=== PATIENT | female | born 1950 | race Caucasian/White ===

== ENCOUNTER → 2019-04-26 12:22 | Outpatient (CLI) | payer OTHER, SELFPAY ==
[2019-04-26 14:37] LABS: Free T4, Direct Thyroxine 0.67 ng/dL (0.78-2.19)
[2019-04-26 14:51] LABS: Thyroid Stimulating Hormone 1.38 uIU/mL (0.47-4.68)
[2019-04-30 15:44] LABS: Triiodothyronine T3 Total 109 ng/dL (76-181)
== END ==
PROVIDERS: Visit Provider Internal Medicine
DX: E03.9 Hypothyroidism, unspecified (principal)
CPT/HCPCS: 36415; 84439; 84443; 84480

== ENCOUNTER → 2020-07-31 15:00 | Outpatient (CLI) | payer OTHER, SELFPAY ==
[2020-08-02 20:06] LABS: COVID19 Sendout Not Detected (Not Detect)
== END ==
PROVIDERS: Visit Provider Physician Assistant
DX: Z11.59 Encounter for screening for other viral diseases (principal)
CPT/HCPCS: 87635

== ENCOUNTER → 2020-11-19 09:16 | Outpatient (CLI) | payer OTHER, SELFPAY ==
[2020-11-19 10:16] LABS: Add Manual Diff / Slide Review NO; Basophils Absolute Auto 0 /uL (0-100); Eosinophils Absolute Auto 0 /uL (0-450); Eosinophils Percent Auto 0.6 % (2-4); Hematocrit 40.2 % (36-46); Hemoglobin 13.4 g/dL (12.0-16.0); Lymphocytes Absolute Auto 1300 /uL (1100-4500); Lymphocytes Percent Auto 37.6 % (25-40); Mean Corpuscular HGB Conc 33.2 % (30-36); Mean Corpuscular Hemoglobin 31.4 PG (26-34); Mean Corpuscular Volume 94.4 fL (80-100); Monocytes Absolute Auto 200 /uL (0-900); Monocytes Percent Auto 5.9 % (3-14); Neutrophils Absolute Auto 1900 /uL (1500-7000); Neutrophils Percent Auto 54.9 % (50-75); Platelet Count 209 X10^3/uL (150-400); Red Blood Cell Count 4.26 X10^6/uL (4.0-5.2); Red Cell Distribution Width 13.9 % (11.6-14.8); White Blood Cell Count 3.5 X10^3/uL (4.5-11.0)
[2020-11-19 10:53] LABS: Alanine Aminotransferase 16 IU/L (<35); Albumin 3.7 g/dL (3.5-5.0); Albumin Globulin Ratio 1.6 (1.0-2.8); Alkaline Phosphatase 64 U/L (38-126); Aspartate Aminotransferase 23 IU/L (14-36); BUN Creatinine Ratio 21.1 (6-22); Bilirubin Total 0.3 mg/dL (0.2-1.3); Blood Urea Nitrogen 16 mg/dL (7-17); Calcium 9.5 mg/dL (8.4-10.2); Carbon Dioxide 34 mmol/L (22-32); Chloride 104 mmol/L (98-107); Cholesterol 188 mg/dL (140-199); Estimated Glomerular Filt Rate > 60.0 mL/min (>60); Globulin 2.3 g/dL (1.7-4.1); Glucose 95 mg/dL (80-110); HDL Cholesterol 61 mg/dL (40-60); HEMOLYSIS < 15 (0-50); LDL Cholesterol Calculated 112 mg/dL (<100); Potassium 4.6 mmol/L (3.4-5.1); Sodium 140 mmol/L (137-145); Triglycerides 74 mg/dL (35-150)
[2020-11-19 11:05] LABS: Free T3, Triiodothyronine Free 3.58 pg/mL (2.77-5.27); Free T4, Direct Thyroxine 0.77 ng/dL (0.78-2.19)
[2020-11-19 11:19] LABS: Thyroid Stimulating Hormone 1.85 uIU/mL (0.47-4.68)
[2020-11-19 11:36] LABS: Vitamin B12 Reflex MMA if <400 603 pg/mL (239-931)
== END ==
PROVIDERS: PCP Registered Nurse Diabetes Educator; Referring Provider Internal Medicine Cardiovascular Disease; Visit Provider Internal Medicine Cardiovascular Disease
DX: R07.89 Other chest pain (principal); E03.9 Hypothyroidism, unspecified; R41.3 Other amnesia
CPT/HCPCS: 36415; 80053; 80061; 82607; 84439; 84443; 84481; 85025

== ENCOUNTER → 2020-12-06 16:32 | Outpatient (CLI) | payer OTHER, SELFPAY ==
[2020-12-06 17:05] LABS: COVID19 -Nasal RAPID Negative (Negative)
== END ==
PROVIDERS: PCP Registered Nurse Diabetes Educator; Visit Provider Physician Assistant
DX: Z20.822 Contact with and (suspected) exposure to COVID-19 (principal)
CPT/HCPCS: 87635

== ENCOUNTER → 2021-02-16 10:03 | Outpatient (CLI) | payer OTHER, SELFPAY ==
[2021-02-16 11:09] LABS: Hematocrit 42.3 % (36-46); Hemoglobin 14.2 g/dL (12.0-16.0); Mean Corpuscular HGB Conc 33.6 % (30-36); Mean Corpuscular Hemoglobin 31.6 PG (26-34); Platelet Count 232 X10^3/uL (150-400); Red Cell Distribution Width 14.2 % (11.6-14.8)
[2021-02-16 11:20] LABS: Alanine Aminotransferase 18 IU/L (<35); Albumin 3.7 g/dL (3.5-5.0); Albumin Globulin Ratio 1.4 (1.0-2.8); Alkaline Phosphatase 64 U/L (38-126); Aspartate Aminotransferase 28 IU/L (14-36); BUN Creatinine Ratio 25.9 (6-22); Bilirubin Total 0.2 mg/dL (0.2-1.3); Blood Urea Nitrogen 21 mg/dL (7-17); Calcium 9.2 mg/dL (8.4-10.2); Carbon Dioxide 34 mmol/L (22-32); Chloride 105 mmol/L (98-107); Estimated Glomerular Filt Rate > 60.0 mL/min (>60); Globulin 2.6 g/dL (1.7-4.1); Glucose 89 mg/dL (80-110); HEMOLYSIS < 15 (0-50); Potassium 4.1 mmol/L (3.4-5.1); Sodium 143 mmol/L (137-145); Total Protein 6.3 g/dL (6.3-8.2)
[2021-02-16 11:51] LABS: TSH w/ Reflex to FT4 5.88 uIU/mL (0.47-4.68)
[2021-02-16 12:41] LABS: Free T4, Direct Thyroxine 0.65 ng/dL (0.78-2.19)
[2021-02-16 18:54] LABS: Cholesterol 215 mg/dL (140-199); HDL Cholesterol 60 mg/dL (40-60); LDL Cholesterol Calculated 141 mg/dL (<100); Triglycerides 69 mg/dL (35-150)
== END ==
PROVIDERS: PCP Registered Nurse Diabetes Educator; Referring Provider Registered Nurse Diabetes Educator; Visit Provider Registered Nurse Diabetes Educator
DX: D72.819 Decreased white blood cell count, unspecified (principal); I10 Essential (primary) hypertension; E03.9 Hypothyroidism, unspecified; E77.8 Other disorders of glycoprotein metabolism; E78.00 Pure hypercholesterolemia, unspecified
CPT/HCPCS: 36415; 80053; 80061; 84439; 84443; 85027

== ENCOUNTER → 2021-03-30 12:30 | Outpatient (CLI) | payer OTHER, SELFPAY ==
[2021-03-30 14:48] LABS: TSH w/ Reflex to FT4 0.92 uIU/mL (0.47-4.68)
== END ==
PROVIDERS: PCP Registered Nurse Diabetes Educator; Referring Provider Registered Nurse Diabetes Educator; Visit Provider Registered Nurse Diabetes Educator
DX: E03.9 Hypothyroidism, unspecified (principal)
CPT/HCPCS: 36415; 84443

== ENCOUNTER → 2021-07-25 14:57 | Outpatient (CLI) | payer OTHER, SELFPAY ==
[2021-07-25 16:59] LABS: Alanine Aminotransferase 21 IU/L (<35); Albumin 4.1 g/dL (3.5-5.0); Albumin Globulin Ratio 1.6 (1.0-2.8); Alkaline Phosphatase 64 U/L (38-126); Aspartate Aminotransferase 27 IU/L (14-36); Bilirubin Total 0.4 mg/dL (0.2-1.3); Bilirubin Unconjugated 0.3 mg/dL (0.0-1.1); Cholesterol 160 mg/dL (140-199); Globulin 2.5 g/dL (1.7-4.1); HDL Cholesterol 80 mg/dL (40-60); HEMOLYSIS < 15 (0-50); LDL Cholesterol Calculated 56 mg/dL (<100); Total Protein 6.6 g/dL (6.3-8.2); Triglycerides 118 mg/dL (35-150)
[2021-07-25 17:20] LABS: Free T3, Triiodothyronine Free 6.16 pg/mL (2.77-5.27); Free T4, Direct Thyroxine 1.05 ng/dL (0.78-2.19)
[2021-07-25 17:34] LABS: Thyroid Stimulating Hormone 0.037 uIU/mL (0.47-4.68)
== END ==
PROVIDERS: PCP Registered Nurse Diabetes Educator; Referring Provider Internal Medicine Cardiovascular Disease; Visit Provider Internal Medicine Cardiovascular Disease
DX: E78.5 Hyperlipidemia, unspecified (principal); E03.9 Hypothyroidism, unspecified
CPT/HCPCS: 80061; 80076; 84439; 84443; 84481

== ENCOUNTER 2021-07-27 09:41 | Emergency (ER) | payer OTHER, SELFPAY ==
[2021-07-27 09:45] VITALS: BP 156/74; PULSE 103; RESP 14; TEMP 36.6; O2SAT 100; BMI 26.9
--- NOTE | 2021-07-27 10:27 | ED.GENADULT ---
HPI - General Adult General Chief complaint: Abdominal Pain Stated complaint: Reaction to medication Time Seen by Provider: 07/27/21 10:06 Source: patient Mode of arrival: Ambulatory Limitations: no limitations History of Present Illness HPI narrative: Patient is a 71-year-old female who is here for evaluation which she thinks is an allergic reaction to her thyroid medication. She states she has had reactions in the past. She is currently on [place] Thyroid. Has been on Synthroid in the past. Get switched back and forth between these medications because of ?reactions. She is here because she feels like her lower lip swelling. She also feels like she is being ?torn up inside ?the symptoms been going on for the past month. She contacted her primary doctor and saw her primary doctor at the beginning of this week. She had labs performed. Was told that she was on too much of her medication so she was decreased yesterday. She denies any fevers. Is crying. Is having problems sleeping. She went to the walk-in clinic who sent her to the emergency department for further evaluation. Related Data Home Medications Medication Instructions Recorded Confirmed ferrous sulfate 325 mg (65 mg 325 mg PO DAILY tab 11/12/18 07/07/21 iron) tablet (FerrouSul) nasal spray MISCELLANEOUS 11/12/18 07/07/21 Previous Rx's Medication Instructions Recorded montelukast 10 mg tablet 10 mg PO QPM #90 tab 11/28/20 (Singulair) omeprazole 20 mg capsule,delayed 20 mg PO DAILY #90 cap 11/28/20 release gabapentin 300 mg capsule 2,100 mg PO BEDTIME #210 cap 12/16/20 tizanidine 4 mg capsule 4 mg PO TID #90 cap 12/16/20 bumetanide 2 mg tablet 2 mg PO DAILY #90 tab 04/11/21 thyroid (pork) 90 mg tablet 90 mg PO DAILY #90 tab 04/11/21 ([place] Thyroid) adjuvant AS01B (PF)vial 1 of 2 0.5 ml IM ONCE #0.5 ml 05/02/21 (Shingrix Adjuvant Component-PF) pneumococcal 23-sriram ps vaccine 25 0.5 ml IM ONCE #0.5 ml 05/02/21 mcg/0.5 mL injection solution (Pneumovax-23) fexofenadine 60 mg-pseudoephedrine 1 tab PO Q12H PRN #60 tab 07/04/21 ER 120 mg tablet,ext.release,12 hr (Arlen-D 12 Hour) trazodone 50 mg tablet 150 mg PO BEDTIME #90 tab 07/27/21 Allergies Allergy/AdvReac Type Severity Reaction Status Date / Time erythromycin base Allergy Unknown Verified 07/27/21 10:04 Penicillins Allergy Unknown unknown Verified 07/27/21 10:04 tetracycline Allergy Unknown Verified 07/27/21 10:04 marrodotin Allergy Unknown Uncoded 07/25/21 17:08 thyroid meds Allergy Unknown Uncoded 07/25/21 17:08 Review of Systems Constitutional Constitutional: Denies headache(s) Comments: Problem sleeping Eyes Eyes: Reports system reviewed and no additional complaints, except as documented ENT Ears, Nose, Mouth, and Throat: Denies headache(s) Comments: Lower lip swelling Cardiovascular Cardiovascular: Reports system reviewed and no additional complaints, except as documented Respiratory Respiratory: Reports system reviewed and no additional complaints, except as documented Gastrointestinal Gastrointestinal: Reports as per HPI and Reports system reviewed and no additional complaints, except as documented Musculoskeletal Musculoskeletal: Reports system reviewed and no additional complaints, except as documented Integumentary/Breasts Skin/Breast: Reports system reviewed and no additional complaints, except as documented Neurologic Neurologic: Denies headache(s) Endocrine Endocrine: Reports system reviewed and no additional complaints, except as documented Hematologic/Lymphatic On Anticoagulants: No Allergic/Immunologic Allergic/Immunologic: Reports system reviewed and no additional complaints, except as documented Patient History Medical History Carpal tunnel syndrome (~1994) Cataracts, bilateral (~2019) Chicken pox Chronic back pain (~1970) Chronic low back pain Depression (~1996) Elevated LDL cholesterol level Hypothyroidism (~2007) Insomnia Mumps (~1964) Sinusitis Surgical History Anesthesia Cat bite of finger (~2013) History of gastrointestinal surgery (~1975) History of nasal surgery (~2014) History of tonsillectomy (~1975) Family History Father Cancer Diabetes mellitus History of heart disease History of heart bypass surgery Mother History of heart disease Hyperlipidemia Hypertension Sister Diabetes mellitus Social History Smoking Status: Never smoker Smoking Status: Never smoker alcohol intake frequency: holidays/special occasions only Substance Use Type: does not use Exam Initial Vital Signs Initial Vital Signs: Vital Signs Temperature 97.8 F 07/27/21 09:45 Pulse Rate 103 H 07/27/21 09:45 Respiratory Rate 14 07/27/21 09:45 Blood Pressure 156/74 H 07/27/21 09:45 Pulse Oximetry 100 07/27/21 09:45 Const General: cooperative, comfortable, anxious and No ill appearing HENMT Head: normal to inspection and normocephalic Nose: external nose normal Face and sinus: normal facial exam Mouth: oral mucosae normal, lip normal, tongue normal and moist mucous membranes Eyes Conjunctivae: conjunctivae normal Neck Neck: no meningeal signs Chest Chest: normal inspection of the chest Resp Effort & Inspection: normal respiratory effort Cardio Rate: regular rate Skin General: no rashes or lesions noted Neuro General: patient alert, patient awake, patient oriented x3 and moves all extremities Extrem General: capillary refill normal Psych Appearance: grossly normal and well kempt Course Vital Signs Vital signs: Vital Signs - 8 hr 07/27/21 09:45 Temperature 97.8 F Pulse Rate 103 H Respiratory Rate 14 Blood Pressure 156/74 H Pulse Oximetry 100 Medical Decision Making [facility] Narrative Medical decision making narrative: Patient is nontoxic appearing. I appreciate no swelling of her lower lip nor tongue left nor other swelling in her oral cavity. I have a higher suspicion that her symptoms today are related to being hyperthyroid. She does had it decrease in her thyroid medication yesterday after having some labs drawn at the beginning of the week. Patient not in thyroid storm. I did discuss this with her. She can take Benadryl if needed. No indication for steroids. No indication for epinephrine. She was given return precautions. She expressed understanding and agreement. Discharge Plan Departure Patient Disposition: Home Clinical Impression: Hyperthyroidism Instructions: Hyperthyroidism Activity Restrictions/Additional Instructions: It may take a couple days being on the lower dose of your thyroid medicine before you start to have improvement of your symptoms. I would not recommend stopping this medicine unless you talk with your primary doctor and as recommended by her. You can take Benadryl as needed. You can purchase this [id number]. They are 25 mg tablets. You can take 1-2 tablet every 4-6 hours as needed. Return to the emergency department for any new or worsening symptoms Prescriptions: No Action ferrous sulfate [FerrouSul] 325 mg (65 mg iron) tablet 325 mg PO DAILY RF: 0 nasal spray miscellaneous RF: 0 gabapentin 300 mg capsule 2,100 mg PO BEDTIME Qty: 210 RF: 5 tizanidine 4 mg capsule 4 mg PO TID Qty: 90 RF: 5 thyroid (pork) [[place] Thyroid] 90 mg tablet 90 mg PO DAILY Qty: 90 RF: 3 bumetanide 2 mg tablet 2 mg PO DAILY Qty: 90 RF: 2 fexofenadine-pseudoephedrine [Arlen-D 12 Hour] 60-120 mg tablet extended release 12 hr 1 tab PO Q12H PRN (Reason: allergy symptoms) Qty: 60 RF: 0 trazodone 50 mg tablet 150 mg PO BEDTIME Qty: 90 RF: 5 montelukast [Singulair] 10 mg tablet 10 mg PO QPM Qty: 90 RF: 3 omeprazole 20 mg capsule,delayed release(DR/EC) 20 mg PO DAILY Qty: 90 RF: 3 Shingrix Adjuvant Component-PF Suspension 0.5 ml IM ONCE Qty: 0.5 RF: 1 Pneumovax-23 25 mcg/0.5 mL solution 0.5 ml IM ONCE Qty: 0.5 RF: 0 Referrals: Moody Maldonado ARNP [Primary Care Provider] -
[2021-07-27 10:55] VITALS: BP 156/74; RESP 18
== END 2021-07-27 10:56 | disposition home or self-care (01) ==
PROVIDERS: Emergency Provider Emergency Medicine; PCP Registered Nurse Diabetes Educator
DX: E05.90 Thyrotoxicosis, unspecified without thyrotoxic crisis or storm (principal)
CPT/HCPCS: 99281

== ENCOUNTER → 2021-11-30 09:08 | Outpatient (CLI) | payer OTHER, SELFPAY ==
[2021-11-30 10:41] LABS: Hematocrit 42.4 % (36-46); Mean Corpuscular Hemoglobin 31.4 PG (26-34); Mean Corpuscular Volume 94.9 fL (80-100); Platelet Count 262 X10^3/uL (150-400); Red Blood Cell Count 4.47 X10^6/uL (4.0-5.2); Red Cell Distribution Width 13.5 % (11.6-14.8); White Blood Cell Count 5.1 X10^3/uL (4.5-11.0)
[2021-11-30 11:00] LABS: Alanine Aminotransferase 18 IU/L (<35); Albumin 4.5 g/dL (3.5-5.0); Albumin Globulin Ratio 1.6 (1.0-2.8); Alkaline Phosphatase 63 U/L (38-126); Aspartate Aminotransferase 26 IU/L (14-36); BUN Creatinine Ratio 15.1 (6-22); Bilirubin Total 0.4 mg/dL (0.2-1.3); Blood Urea Nitrogen 14 mg/dL (7-17); Calcium 9.6 mg/dL (8.4-10.2); Carbon Dioxide 35 mmol/L (22-32); Chloride 102 mmol/L (98-107); Cholesterol 279 mg/dL (140-199); Estimated Glomerular Filt Rate 59.8 mL/min (>60); Globulin 2.9 g/dL (1.7-4.1); Glucose 103 mg/dL (80-110); HDL Cholesterol 87 mg/dL (40-60); HEMOLYSIS < 15 (0-50); LDL Cholesterol Calculated 167 mg/dL (<100); Potassium 3.7 mmol/L (3.4-5.1); Sodium 141 mmol/L (137-145); Total Protein 7.4 g/dL (6.3-8.2); Triglycerides 123 mg/dL (35-150)
[2021-11-30 11:12] LABS: Free T4, Direct Thyroxine 0.82 ng/dL (0.78-2.19)
[2021-11-30 11:14] LABS: Free T3, Triiodothyronine Free 4.32 pg/mL (2.77-5.27); Free T4, Direct Thyroxine 0.84 ng/dL (0.78-2.19)
== END ==
PROVIDERS: Student in an Organized Health Care Education/Training Program; PCP Registered Nurse Diabetes Educator; Referring Provider Registered Nurse Diabetes Educator; Visit Provider Registered Nurse Diabetes Educator
DX: E55.9 Vitamin D deficiency, unspecified (principal); E03.9 Hypothyroidism, unspecified; E78.00 Pure hypercholesterolemia, unspecified; Z51.81 Encounter for therapeutic drug level monitoring; F41.9 Anxiety disorder, unspecified
CPT/HCPCS: 36415; 80053; 80061; 82306; 84439; 84443; 84481; 85027

== ENCOUNTER → 2022-01-13 08:08 | Outpatient (CLI) | payer OTHER, SELFPAY ==
--- NOTE | 2022-01-13 08:23 | DI.RAD.S_ITS ---
PROCEDURE: XR ABDOMEN 1V INDICATIONS: eval diffuse abdominal pain, intermittent TECHNIQUE: One view of the abdomen acquired. COMPARISON: None. FINDINGS: Surgical changes and devices: None. Bowel: Bowel gas pattern is normal. Soft tissues: No suspicious abdominal calcifications. Visualized solid organ contours appear normal in size. Bones: No suspicious bony lesions. IMPRESSION: No acute disease process. Dictated by: Elisabeth Grover MD, PhD on 01/13/2022 at 12:00 Approved by: Elisabeth Grover MD, PhD on 01/13/2022 at 12:01
[2022-01-13 10:13] LABS: Free T4, Direct Thyroxine 0.92 ng/dL (0.78-2.19)
== END ==
PROVIDERS: Family Provider Registered Nurse Diabetes Educator; PCP Registered Nurse Diabetes Educator; Referring Provider Student in an Organized Health Care Education/Training Program; Visit Provider Student in an Organized Health Care Education/Training Program
DX: E03.9 Hypothyroidism, unspecified (principal); R10.9 Unspecified abdominal pain
CPT/HCPCS: 36415; 74018; 84439; 84443

== ENCOUNTER → 2022-02-07 11:46 | Outpatient (CLI) | payer OTHER, SELFPAY ==
--- NOTE | 2022-02-07 11:57 | DI.MG.S_ITS ---
BILATERAL DIGITAL SCREENING MAMMOGRAM 3D/2D WITH CAD: 02/07/2022 CLINICAL: Routine screening. No prior exams were available for comparison. The tissue of both breasts is predominantly fatty. Current study was also evaluated with a Computer Aided Detection (CAD) system. No significant masses, calcifications, or other findings are seen in either breast. IMPRESSION: NEGATIVE There is no mammographic evidence of malignancy. A 1 year screening mammogram is recommended. This exam was interpreted at Station ID: [id number]. NOTE: For mammograms, a report in lay terms will be sent to the patient. Approximately 15% of breast malignancies will not be visualized mammographically. In the management of a palpable breast mass, a negative mammogram must not discourage biopsy of a clinically suspicious lesion. Electronically Signed By: Rosina henley/kim:02/07/2022 13:01:28 letter sent: Normal Exam ACR BI-RADS Category 1: Negative [id number]
== END ==
PROVIDERS: Family Provider Registered Nurse Diabetes Educator; PCP Registered Nurse Diabetes Educator; Referring Provider Registered Nurse Diabetes Educator; Visit Provider Registered Nurse Diabetes Educator
DX: Z12.31 Encounter for screening mammogram for malignant neoplasm of breast; Z13.820 Encounter for screening for osteoporosis; Z78.0 Asymptomatic menopausal state; M85.89 Other specified disorders of bone density and structure, multiple sites
CPT/HCPCS: 77063; 77067; 77080

== ENCOUNTER → 2022-02-08 09:58 | Outpatient (CLI) | payer OTHER, SELFPAY ==
--- NOTE | 2022-02-08 09:59 | DI.US.S_ITS ---
PROCEDURE: US ABDOMEN COMPLETE INDICATIONS: eval diffuse abd pain, intermittent TECHNIQUE: Real-time scanning was performed of the abdominal and retroperitoneal organs, with image documentation. COMPARISON: None. FINDINGS: Liver: Liver is normal in size and homogeneous in echotexture. Gallbladder: The gallbladder is contracted without gallstones or pathologic gallbladder wall thickening. There is no pericholecystic fluid. Sonographic Sierra sign is negative. Biliary ducts: Intrahepatic bile ducts are non-dilated. Extrahepatic bile duct caliber measures five mm. Normal is 6-7 mm or less in diameter, or 10 mm or less post-cholecystectomy. Pancreas: The pancreas is not well visualized. Spleen: Spleen is normal in size and homogeneous in echotexture. Kidneys: Kidneys are normal in size and echotexture. Right kidney measures 11.2 cm long; left kidney measures 10.5 cm long. No nephrolithiasis. No solid masses. Mild prominence of the right renal pelvis may be secondary to extrarenal pelvis or possibly mild hydronephrosis. Aorta: Visualized aorta is normal in caliber at less than 3 cm. Iliacs: Proximal common iliac arteries are normal in caliber at less than 2.5 cm. IVC: Intrahepatic inferior vena cava is patent. Miscellaneous: No free abdominal fluid. IMPRESSION: 1. Possible mild right hydronephrosis versus normal-variant extrarenal pelvis. No nephrolithiasis sonographically. CT could be obtained for further evaluation if symptoms persist. 2. Otherwise, abdominal ultrasound is within normal limits. Dictated by: Koffi Mason M.D. on 02/08/2022 at 11:38 Approved by: Koffi Mason M.D. on 02/08/2022 at 11:43
== END ==
PROVIDERS: Family Provider Registered Nurse Diabetes Educator; PCP Registered Nurse Diabetes Educator; Referring Provider Registered Nurse Diabetes Educator; Visit Provider Registered Nurse Diabetes Educator
DX: R10.9 Unspecified abdominal pain (principal)
CPT/HCPCS: 76700

== ENCOUNTER 2022-02-21 09:53 | Day surgery (SDC) | payer OTHER, SELFPAY ==
[2022-02-21] VITALS (7 sets, daily range): BP systolic 99–134; BP diastolic 54–87; PULSE 64–84; RESP 15–20; TEMP 36.1–36.8; O2SAT 96–100; BMI 26.6
[2022-02-21] MEDS: LACTATED RINGERS 1,000 ML 200 ML IV (10:29)
[2022-02-21 10:41] LABS: COVID19 -Nasal RAPID Negative (Negative)
--- NOTE | 2022-02-21 10:45 | PM.HP.1 ---
History of Present Illness History of Present Illness Date Patient Seen: 02/21/22 Time Patient Seen: 10:45 Chief complaint: SCREENING COLONOSCOPY Narrative: The patient presents for colorectal screening. Previous colonoscopy 3 years ago but was inadequate secondary to poor prep. No personal or family history of colon cancer. She has abdominal pain superior to the umbilicus which is secondary to a hernia. No nausea, vomiting, loss of appetite, unexplained weight loss, change in bowel habits, diarrhea, constipation, melena, hematochezia, or bright red blood per rectum. Patient History Medical History Allergic rhinitis Carpal tunnel syndrome (~1994) Cataracts, bilateral (~2019) Chicken pox Chronic back pain (~1970) Chronic low back pain Depression (~1996) Dyslipidemia Elevated LDL cholesterol level Hypothyroidism (~2007) Insomnia Mumps (~1964) Sinusitis Surgical History Anesthesia Cat bite of finger (~2013) History of gastrointestinal surgery (~1975) History of nasal surgery (~2014) History of tonsillectomy (~1975) Family & Social History Family History Father Cancer Diabetes mellitus History of heart disease History of heart bypass surgery Mother History of heart disease Hyperlipidemia Hypertension Sister Diabetes mellitus Social History: household members family Tobacco & Substance use: Smoking Status Never smoker alcohol intake current alcohol intake frequency holiday/special occasion Substance Use Type does not use Meds Home Medications and Allergies Home Medications Medication Instructions Recorded Confirmed Type ferrous sulfate 325 mg (65 mg 325 mg PO DAILY tab 11/12/18 02/21/22 History iron) tablet (FerrouSul) nasal spray MISCELLANEOUS 11/12/18 02/13/22 History adjuvant AS01B (PF)vial 1 of 2 0.5 ml IM ONCE #0.5 ml 05/02/21 02/21/22 Rx (Shingrix Adjuvant Component-PF) pneumococcal 23-sriram ps vaccine 25 0.5 ml IM ONCE #0.5 ml 05/02/21 02/13/22 Rx mcg/0.5 mL injection solution (Pneumovax-23) thyroid (pork) 15 mg tablet 15 mg PO DAILY #60 tab 09/26/21 02/21/22 Rx ([place] Thyroid) Arlen-D 12 Hour 60 mg-120 mg 1 tab PO Q12H PRN #60 tab NS 12/15/21 02/21/22 Rx tablet,extended release (fexofenadine-pseudoephedrine) bumetanide 2 mg tablet 2 mg PO DAILY #90 tab 01/03/22 02/21/22 Rx fluticasone propionate 50 2 spray INTRANASAL DAILY #48 g 01/03/22 02/21/22 Rx mcg/actuation nasal spray,suspension (Flonase Allergy Relief) gabapentin 300 mg capsule 2,100 mg PO BEDTIME #630 cap 01/03/22 02/21/22 Rx montelukast 10 mg tablet 10 mg PO QPM #90 tab 01/03/22 02/21/22 Rx (Singulair) omeprazole 20 mg capsule,delayed 20 mg PO DAILY #90 cap 01/03/22 02/21/22 Rx release tizanidine 4 mg capsule 4 mg PO BID #180 cap 01/03/22 02/21/22 Rx trazodone 50 mg tablet 150 mg PO BEDTIME #270 tab 01/03/22 02/21/22 Rx ondansetron HCl 4 mg tablet 4 mg PO Q8H PRN #20 tab 01/26/22 02/21/22 Rx sumatriptan succinate 100 mg tablet 100 mg PO ONCE #10 tab 01/26/22 02/21/22 Rx Allergies Allergy/AdvReac Type Severity Reaction Status Date / Time nitrofurantoin Allergy Mild Rash Verified 02/21/22 10:13 [From Macrodantin] erythromycin base Allergy Unknown Verified 02/13/22 14:59 Penicillins Allergy Unknown unknown Verified 02/13/22 14:59 tetracycline Allergy Unknown Verified 02/13/22 14:59 thyroid meds Allergy Mild Rash Uncoded 02/21/22 10:14 Exam Vital Signs (past 8 hours): - 02/21/22 10:19 Temperature 98.2 F Pulse Rate 84 Respiratory Rate 20 Blood Pressure 116/67 Pulse Oximetry 96 Oxygen Delivery Method Room Air Narrative Exam Narrative: GENERAL: Obese woman in no apparent distress HEENT: No scleral icterus CV: Regular rate, no peripheral edema LUNGS: No increased work of breathing. Patient speaks in full sentences without oxygen support. ABDOMEN: Soft, non-tender, non-distended NEURO: Nonfocal, normal strength throughout, normal gait. SKIN: Warm and dry Objective Labs Labs: Laboratory Results - last 24 hr 02/21/22 10:14 SARS-CoV-2 (PCR) Negative Assessment & Plan Assessment & Plan narrative: The patient requires colorectal screening and colonoscopy is recommended. Technical details were discussed. Risks, benefits, alternatives explained. Risks including but not limited to myocardial infarction, aspiration, bleeding, pain, missed lesion, incomplete examination, need for further radiographic studies, colonic perforation, and need for major abdominal surgery were discussed. All questions were answered to their satisfaction, and they are in agreement with this plan. Time Spent With Patient Critical Care time: I spent a total of [] minutes of critical care time on this patient's care today; this time is exclusive of procedural time.
[2022-02-21] MEDS: MIDAZOLAM 5 MG/5 ML VIAL 7 MG IV (10:52)
[2022-02-21] MEDS: fentaNYL 250 MCG/5 ML INJ 150 MCG IV (10:52)
--- NOTE | 2022-02-21 11:20 | P.OP.COLON_ITS ---
Operative Date/Time/Diagnoses Date of procedure: 02/21/22 Time of procedure: 11:20 Pre-op diagnosis: Screening Post-op diagnosis: same Procedure & Clinicians Study performed: Colonoscopy Same procedure as scheduled: Yes Indications: Screening Surgeon: Maxim Armenta Procedure Notes Procedure in detail: Medications: Conscious sedation using 5mg IV midazolam and 150mcg IV of fentanyl The history and physical was performed/updated and the patient is ASA class is 2. The procedure was discussed in detail with the patient. Potential risks complications including infection, bleeding, missed diagnosis, perforation, need for surgery, and were explained. Their questions were answered and informed consent was obtained. Patient was brought to the procedure room and placed standard monitoring equipment. The patient's vital signs were monitored continuously throughout the entire procedure. Prior to starting time-out was performed. The patient was placed in the left lateral recumbent position. Procedural sedation was adminis tered. Examination began with a thorough inspection of the perianal area there was no evidence of fissures, fistulae, external hemorrhoids or cutaneous malignancy. The colonoscopy scope was then placed into the anal canal and was advanced to the cecum, which was identified by the ileocecal valve, the appendiceal orifice and the confluence of the taenia. The scope was then slowly withdrawn examining colon thoroughly in all directions, irrigating it of any residual stool. FINDINGS 1. No masses or polyps 2. Diverticulosis 3. Internal hemorrhoids The patient tolerated the procedure well. They will be discharged once criteria are met. The prep was of good/excellent quality. The withdrawl time was 7 minutes. The sedation time was 25 minutes. Specimen(s): none sent Complications: none Impression: Normal colonoscopy Post-procedure Recommendations: Colonoscopy in 10 years and High fiber diet Disposition: same day surgery
== END 2022-02-21 11:58 | disposition home or self-care (01) ==
PROVIDERS: Family Provider Registered Nurse Diabetes Educator; PCP Registered Nurse Diabetes Educator; Referring Provider Surgery; Visit Provider Surgery
PROC: 0DJD8ZZ Inspection of Lower Intestinal Tract, Via Natural or Artificial Opening Endoscopic (ICD-10-PCS; CPT 45378; principal; 2022-02-21 11:00)
DX: Z12.11 Encounter for screening for malignant neoplasm of colon (principal); Z20.822 Contact with and (suspected) exposure to COVID-19; K57.30 Diverticulosis of large intestine without perforation or abscess without bleeding; K64.8 Other hemorrhoids
CPT/HCPCS: G0121; 87635; 99152; 99153; C9803; J2250; J3010

== ENCOUNTER → 2022-02-23 14:12 | Outpatient (CLI) | payer OTHER, SELFPAY ==
--- NOTE | 2022-02-23 14:15 | DI.CT.S_ITS ---
PROCEDURE: CT ABDOMEN PELVIS WO/W CON INDICATIONS: Unspecified hydronephrosis TECHNIQUE: Optional 5 mm thick noncontrast images acquired from the diaphragm to the symphysis pubis. After the administration of intravenous contrast, 5 mm thick images acquired from the diaphragm to the symphysis pubis after a 10-minute delay. 2 mm thick coronal and sagittal reformats were then performed of the kidneys and ureters. For radiation dose reduction, the following was used: automated exposure control, adjustment of mA and/or kV according to patient size. COMPARISON: [facility], , US ABDOMEN COMPLETE, 02/08/2022, 10:13. FINDINGS: Image quality: Excellent. Lung bases: Lung bases are clear. Heart size is normal. Urinary system: Both kidneys are normal in size, without hydronephrosis or nephrolithiasis on pre-contrast images. No perinephric fat stranding. There is normal bilateral renal enhancement. Renal calyces appear normal in morphology when filled with contrast. Opacified portions of both ureters demonstrate normal caliber. Bladder wall thickness is normal. No calcified bladder stones. Other solid organs: Liver is normal in size and enhancement. Gallbladder is unremarkable . Biliary system is non dilated. Pancreas enhances normally. Spleen is normal in size and enhancement. No adrenal nodules. Large hiatal hernia. Peritoneum and bowel: Bowel loops demonstrate normal wall thickness and caliber. No free fluid or air. Moderate colonic stool. Nodes and vessels: No retroperitoneal or mesenteric adenopathy by size criteria. Aorta and inferior vena cava are normal in size. Abdominal wall: No ventral hernias. Pelvis: No pathologic free pelvic fluid. No inguinal hernias or adenopathy. Bones: No suspicious bony lesions. No vertebral body compression fractures. IMPRESSION: No obstruction. No renal, ureteral or bladder calculi. Prominent colonic stool consistent with constipation. No gross obstruction. Dictated by: Cherrie Urena M.D. on 02/23/2022 at 16:27 Approved by: Cherrie Urena M.D. on 02/23/2022 at 16:28
[2022-02-23 15:00] LABS: BUN Creatinine Ratio 14.3 (6-22); Blood Urea Nitrogen 12 mg/dL (7-17); Calcium 8.7 mg/dL (8.4-10.2); Carbon Dioxide 37 mmol/L (22-32); Chloride 100 mmol/L (98-107); Cholesterol 209 mg/dL (140-199); Estimated Glomerular Filt Rate > 60 mL/min (>60); Glucose 139 mg/dL (80-110); HDL Cholesterol 67 mg/dL (40-60); HEMOLYSIS < 15 (0-50); LDL Cholesterol Calculated 108 mg/dL (<100); Potassium 3.9 mmol/L (3.4-5.1); Sodium 139 mmol/L (137-145); Triglycerides 170 mg/dL (35-150)
[2022-02-23 17:33] LABS: Thyroid Stimulating Hormone 1.07 uIU/mL (0.47-4.68)
== END ==
PROVIDERS: Family Provider Registered Nurse Diabetes Educator; PCP Registered Nurse Diabetes Educator; Referring Provider Registered Nurse Diabetes Educator; Visit Provider Registered Nurse Diabetes Educator
DX: N13.30 Unspecified hydronephrosis (principal); E03.9 Hypothyroidism, unspecified; E78.5 Hyperlipidemia, unspecified; R94.4 Abnormal results of kidney function studies
CPT/HCPCS: 36415; 74178; 80048; 80061; 84439; 84443; Q9967

== ENCOUNTER → 2022-03-07 14:57 | Outpatient (CLI) | payer OTHER, SELFPAY ==
[2022-03-07 16:59] LABS: COVID19 -Nasal RAPID Negative (Negative)
== END ==
PROVIDERS: Family Provider Registered Nurse Diabetes Educator; PCP Registered Nurse Diabetes Educator; Visit Provider Surgery
DX: Z01.812 Encounter for preprocedural laboratory examination (principal); Z20.822 Contact with and (suspected) exposure to COVID-19
CPT/HCPCS: 87635; C9803

== ENCOUNTER → 2022-03-13 13:08 | Outpatient (CLI) | payer OTHER, SELFPAY ==
[2022-03-13 14:30] LABS: COVID19 -Nasal RAPID Negative (Negative)
== END ==
PROVIDERS: Family Provider Registered Nurse Diabetes Educator; PCP Registered Nurse Diabetes Educator; Visit Provider Surgery
DX: Z01.812 Encounter for preprocedural laboratory examination (principal); Z20.822 Contact with and (suspected) exposure to COVID-19
CPT/HCPCS: 87635; C9803

== ENCOUNTER 2022-03-14 08:51 | Day surgery (SDC) | payer OTHER, SELFPAY ==
[2022-03-01 14:45] VITALS: BMI 25.8
[2022-03-14] VITALS (8 sets, daily range): BP systolic 101–126; BP diastolic 39–68; PULSE 76–93; RESP 12–25; TEMP 36.2–36.4; O2SAT 96–100; BMI 25.8
--- NOTE | 2022-03-14 09:27 | PM.PREOP ---
Pre-operative Note Interval Note History & Physical reviewed/Exam performed by Physician: Yes Changes to H&P: No
[2022-03-14] MEDS: ACETAMINOPHEN 325 MG TABLET 650 MG PO (09:31)
[2022-03-14] MEDS: LACTATED RINGERS 1,000 ML 100 ML IV (09:33)
[2022-03-14] MEDS: CLINDAMYCIN 900 MG/50 ML PIGGYBACK 50 MG IV (10:50)
--- NOTE | 2022-03-14 10:59 | SUR.OPER ---
Supine on padded OR bed, head on pillow, safety belt at thigh, arms secured on padded arm board <90 degrees abduction. Legs uncrossed. Tape over blanket to secure lower legs. Directed and approved by surgeon
[2022-03-14] MEDS: BUPIVACAINE 0.25% (PF) VIAL 30 ML INJ (11:05)
--- NOTE | 2022-03-14 11:48 | PM.OP.1 ---
Operative Date/Time/Diagnoses Date of procedure: 03/14/22 Time of procedure: 11:48 Pre-op diagnosis: Umbilical hernia Post-op diagnosis: same Procedure & Clinicians Procedure: Open umbilical hernia repair with mesh Same procedure as scheduled: Yes Indications: Symptomatic reducible umbilical hernia Surgeon: Maxim Armenta Click Yes if Unassisted: Yes Anesthesia Type: General Operative Notes Findings: 2cm fascial defect containing omentum Specimen(s): none sent Estimated Blood Loss (mL): 20 Procedure in detail: Patient was brought to the operating room placed supine on the table. Bilateral lower extremity compression devices were applied. General anesthesia was induced and they were intubated with an endotracheal tube. They received clindamycin prior to skin incision. They were prepped and draped in sterile fashion. A time-out was performed. A curvilinear incision was made inferior to the umbilicus. The subcutaneous tissues were divided. The umbilical hernia was identified and the hernia sac was dissected off the umbilical skin and circumferentially off of the fascia defect. The hernia sac was sharply opened and contained viable omentum. The omentum was reduced back into the abdomen. Using blunt dissection I carefully carefully freed the hernia sac from beneath the fascia defect in order to accomodate the mesh. The fascia defect was 1.5 cm in maximal diameter. A Bard Ventralex ST hernia patch 6 cm was inserted beneath the fascia defect and above the peritoneum in a sublay position. The mesh was anchored in multiple locations using Ethibond suture to the fascia and the fascial defect was closed over the mesh. The umbilical skin was tacked to the subcutaneous tissues and then the remainder of the subcutaneous tissues were reapproximated using 3 0 Vicry,l skin closed with 4 0 Monocryl followed by the application of Dermabond and Steri-Strips. Sponge instrument count at the end of the operation was correct. Patient tolerated procedure well was extubated and transferred to postoperative care unit in stable condition. Complications: none Post-operative Condition: stable Disposition: same day surgery
[2022-03-14] MEDS: fentaNYL 100 MCG/2 ML INJ IV ×2 (11:52→11:58)
[2022-03-14] MEDS: HYDROCODONE/ACET 5/325 TABLET 1 TAB PO (11:55)
== END 2022-03-14 12:42 | disposition home or self-care (01) ==
PROVIDERS: Family Provider Registered Nurse Diabetes Educator; PCP Registered Nurse Diabetes Educator; Referring Provider Surgery; Visit Provider Surgery
PROC: (CPT 49585; principal; 2022-03-14 10:15)
DX: K42.9 Umbilical hernia without obstruction or gangrene (principal); E03.9 Hypothyroidism, unspecified; E78.5 Hyperlipidemia, unspecified
CPT/HCPCS: 49585; 82962; J1100; J1885; J2250; J2405; J2704; J3010

== ENCOUNTER → 2022-03-31 16:58 | Outpatient (CLI) | payer OTHER, SELFPAY | PROVIDERS: Family Provider Registered Nurse Diabetes Educator; PCP Registered Nurse Diabetes Educator; Visit Provider Surgery | DX: K42.9 Umbilical hernia without obstruction or gangrene (principal); T81.49XA Infection following a procedure, other surgical site, initial encounter | CPT/HCPCS: 87070; 87075; 87077; 87186; 87205 ==

== ENCOUNTER → 2022-07-12 11:24 | Outpatient (CLI) | payer OTHER, SELFPAY ==
[2022-07-12 12:53] LABS: Erythrocyte Sedimentation Rate 6 MM/HR (0-20)
[2022-07-12 17:28] LABS: Thyroid Stimulating Hormone 0.124 uIU/mL (0.47-4.68)
[2022-07-13 11:45] LABS: Free T4, Direct Thyroxine 1.08 ng/dL (0.78-2.19)
== END ==
PROVIDERS: Family Provider Registered Nurse Diabetes Educator; PCP Registered Nurse Diabetes Educator; Referring Provider Student in an Organized Health Care Education/Training Program; Visit Provider Student in an Organized Health Care Education/Training Program
DX: E03.9 Hypothyroidism, unspecified (principal)
CPT/HCPCS: 36415; 84439; 84443; 85651; 86140

== ENCOUNTER → 2022-07-27 10:27 | Outpatient (CLI) | payer OTHER, SELFPAY ==
[2022-07-27 12:02] LABS: Cholesterol 229 mg/dL (140-199); HDL Cholesterol 74 mg/dL (40-60); LDL Cholesterol Calculated 134 mg/dL (<100); Triglycerides 105 mg/dL (35-150)
[2022-07-27 12:31] LABS: TSH w/ Reflex to FT4 1.01 uIU/mL (0.47-4.68)
== END ==
PROVIDERS: Family Provider Registered Nurse Diabetes Educator; PCP Registered Nurse Diabetes Educator; Referring Provider Student in an Organized Health Care Education/Training Program; Visit Provider Student in an Organized Health Care Education/Training Program
DX: E03.9 Hypothyroidism, unspecified (principal); E78.5 Hyperlipidemia, unspecified
CPT/HCPCS: 36415; 80061; 84443

== ENCOUNTER → 2022-08-10 14:42 | Outpatient (CLI) | payer OTHER, SELFPAY ==
--- NOTE | 2022-08-10 | DI.CT.S_ITS ---
PROCEDURE: CT SINUS SCREEN WO CON INDICATIONS: Chronic pansinusitis TECHNIQUE: Noncontrast 3.0 mm axial images acquired from the frontal sinuses to the mid-sella, with coronal and sagittal reformats. For radiation dose reduction, the following was used: automated exposure control, adjustment of mA and/or kV according to patient size. COMPARISON: None. FINDINGS: Image quality: Excellent. Maxillary Sinuses: No bony remodeling or destruction. 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 Ethmoid Air Cells: No bony remodeling or destruction. Sinuses are clear. There is a presumed osteoma seen involving the left anterior ethmoid air cells, as on series 2, image 26 and on series 4, image 21. Sphenoid Sinuses: No bony remodeling or destruction. Sinuses are clear. Frontal Sinuses: No bony remodeling or destruction. Sinuses are clear. 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 Miscellaneous: Visualized intra-orbital contents are normal. No emily bullosa or paradoxical turbinate curvature. No significant nasal septal deviation. IMPRESSION: No active paranasal sinus disease is seen. There is absence of a portion of the medial wall of the right maxillary sinus. Please correlate with prior postoperative change versus prior erosion. 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 Dictated by: Juan Manuel Bell M.D. on 08/10/2022 at 14:15 Approved by: Juan Manuel Bell M.D. on 08/10/2022 at 14:17
== END ==
PROVIDERS: Family Provider Registered Nurse Diabetes Educator; PCP Registered Nurse Diabetes Educator; Referring Provider Otolaryngology; Visit Provider Otolaryngology
DX: J32.4 Chronic pansinusitis (principal)
CPT/HCPCS: 70486

== ENCOUNTER → 2022-09-20 11:57 | Outpatient (CLI) | payer OTHER, SELFPAY ==
[2022-09-20 13:16] LABS: Free T4, Direct Thyroxine 0.79 ng/dL (0.78-2.19)
[2022-09-20 13:30] LABS: Thyroid Stimulating Hormone 0.083 uIU/mL (0.47-4.68)
== END ==
PROVIDERS: Family Provider Registered Nurse Diabetes Educator; PCP Registered Nurse Diabetes Educator; Referring Provider Student in an Organized Health Care Education/Training Program; Visit Provider Student in an Organized Health Care Education/Training Program
DX: E03.9 Hypothyroidism, unspecified (principal)
CPT/HCPCS: 36415; 84439; 84443

== ENCOUNTER → 2022-10-04 12:07 | Outpatient (CLI) | payer OTHER, SELFPAY ==
[2022-10-04 14:09] LABS: Add Manual Diff / Slide Review NO; Basophils Absolute Auto 0 /uL (0-100); Basophils Percent Auto 0.6 % (0-2); Eosinophils Absolute Auto 0 /uL (0-450); Eosinophils Percent Auto 0.7 % (2-4); Hematocrit 41.4 % (36-46); Hemoglobin 13.9 g/dL (12.0-16.0); Lymphocytes Absolute Auto 1600 /uL (1100-4500); Lymphocytes Percent Auto 28.5 % (25-40); Mean Corpuscular HGB Conc 33.6 % (30-36); Mean Corpuscular Hemoglobin 31.6 PG (26-34); Mean Corpuscular Volume 94.1 fL (80-100); Monocytes Absolute Auto 300 /uL (0-900); Monocytes Percent Auto 4.8 % (3-14); Neutrophils Absolute Auto 3800 /uL (1500-7000); Neutrophils Percent Auto 65.4 % (50-75); Platelet Count 235 X10^3/uL (150-400); Red Cell Distribution Width 14.1 % (11.6-14.8); White Blood Cell Count 5.8 X10^3/uL (4.5-11.0)
[2022-10-04 14:16] LABS: Appearance Urine UA CLEAR; Bilirubin Urine UA NEGATIVE (NEGATIVE); Color Urine UA YELLOW; Glucose Urine UA NEGATIVE (Negative); Ketones Urine UA NEGATIVE (NEGATIVE); Leukocyte Esterase Urine UA NEGATIVE (NEGATIVE); Nitrite Urine UA NEGATIVE (Negative); Occult Blood Urine UA NEGATIVE (Negative); Protein Urine UA NEGATIVE (Negative); Specific Gravity Urine UA <=1.005 (1.000-1.035); Urobilinogen Urine UA 0.2 E.U./dL (0.2)
[2022-10-04 14:18] LABS: pH Urine UA 6.5 (4.5-8.0)
[2022-10-04 14:39] LABS: Alanine Aminotransferase 19 IU/L (<35); Albumin 4.2 g/dL (3.5-5.0); Albumin Globulin Ratio 1.6 (1.0-2.8); Alkaline Phosphatase 67 U/L (38-126); Aspartate Aminotransferase 24 IU/L (14-36); BUN Creatinine Ratio 18.1 (6-22); Bilirubin Total 0.4 mg/dL (0.2-1.3); Blood Urea Nitrogen 13 mg/dL (7-17); Calcium 9.3 mg/dL (8.4-10.2); Carbon Dioxide 31 mmol/L (22-32); Chloride 100 mmol/L (98-107); Estimated Glomerular Filt Rate > 60 mL/min (>60); Globulin 2.6 g/dL (1.7-4.1); Glucose 78 mg/dL (80-110); HEMOLYSIS < 15 (0-50); Lipase 71 U/L (23-300); Potassium 4.5 mmol/L (3.4-5.1); Sodium 138 mmol/L (137-145); Total Protein 6.8 g/dL (6.3-8.2)
[2022-10-04 14:40] LABS: Bacteria Urine None Seen; Culture Indicated Urine Cult Not Indicated; RBC Urine None Seen (0-5/HPF); Squamous Epithelial Cell Urine None Seen (0-5/HPF); WBC Urine None Seen (0-5/HPF)
== END ==
PROVIDERS: Family Provider Registered Nurse Diabetes Educator; PCP Registered Nurse Diabetes Educator; Referring Provider Registered Nurse Diabetes Educator; Visit Provider Registered Nurse Diabetes Educator
DX: R10.9 Unspecified abdominal pain (principal)
CPT/HCPCS: 36415; 80053; 81001; 83690; 85025

== ENCOUNTER → 2022-11-20 14:25 | Outpatient (CLI) | payer OTHER, SELFPAY ==
[2022-11-20 15:56] LABS: TSH w/ Reflex to FT4 0.53 uIU/mL (0.47-4.68)
== END ==
PROVIDERS: Family Provider Registered Nurse Diabetes Educator; PCP Registered Nurse Diabetes Educator; Referring Provider Student in an Organized Health Care Education/Training Program; Visit Provider Student in an Organized Health Care Education/Training Program
DX: E03.9 Hypothyroidism, unspecified (principal)
CPT/HCPCS: 36415; 84443

== ENCOUNTER → 2023-01-01 13:13 | Outpatient (CLI) | payer OTHER, SELFPAY ==
[2023-01-01 14:54] LABS: Free T4, Direct Thyroxine 0.61 ng/dL (0.78-2.19)
[2023-01-01 15:07] LABS: Thyroid Stimulating Hormone 1.55 uIU/mL (0.47-4.68)
[2023-01-02 22:35] LABS: Triiodothyronine T3 Total 97 ng/dL (71-180)
== END ==
PROVIDERS: Family Provider Registered Nurse Diabetes Educator; PCP Registered Nurse Diabetes Educator; Referring Provider Internal Medicine Endocrinology, Diabetes & Metabolism; Visit Provider Student in an Organized Health Care Education/Training Program
DX: E03.9 Hypothyroidism, unspecified (principal)
CPT/HCPCS: 36415; 84436; 84439; 84443; 84480

== ENCOUNTER → 2023-03-22 16:11 | Outpatient (CLI) | payer OTHER, SELFPAY ==
[2023-03-22 17:29] LABS: Free T4, Direct Thyroxine 0.84 ng/dL (0.78-2.19); T4 Total Thyroxine 6.76 ug/dL (5.5-11.0)
== END ==
PROVIDERS: Family Provider Registered Nurse Diabetes Educator; PCP Registered Nurse Diabetes Educator; Referring Provider Student in an Organized Health Care Education/Training Program; Visit Provider Student in an Organized Health Care Education/Training Program
DX: E03.9 Hypothyroidism, unspecified (principal)
CPT/HCPCS: 36415; 84436; 84439; 84443

== ENCOUNTER → 2023-08-13 10:06 | Outpatient (CLI) | payer OTHER, SELFPAY ==
--- NOTE | 2023-08-13 10:09 | DI.RAD.S_ITS ---
PROCEDURE: XR CERVICAL SPINE 4V OR 5V INDICATIONS: BUE paresthesias TECHNIQUE: 5 views of the cervical spine acquired. COMPARISON: None. FINDINGS: Bones: No fractures or dislocations to the T1 level. Mild degenerative changes in the cervical spine. This is demonstrable by small osteophytes, uncovertebral joint hypertrophy, and disc space height loss. Oblique images demonstrate no bony foraminal stenoses. Soft tissues: No prevertebral soft tissue swelling. IMPRESSION: Mild degenerative changes appreciated in the cervical spine. If clinically indicated consider MRI for further evaluation. Dictated by: John Clarke M.D. on 08/13/2023 at 12:04 Approved by: John Clarke M.D. on 08/13/2023 at 12:06
[2023-08-13 10:48] LABS: Hematocrit 43.9 % (36-46); Hemoglobin 14.8 g/dL (12.0-16.0); Mean Corpuscular HGB Conc 33.7 % (30-36); Mean Corpuscular Hemoglobin 31.7 PG (26-34); Mean Corpuscular Volume 93.8 fL (80-100); Platelet Count 271 X10^3/uL (150-400); Red Blood Cell Count 4.68 X10^6/uL (4.0-5.2); Red Cell Distribution Width 14.3 % (11.6-14.8); White Blood Cell Count 5.9 X10^3/uL (4.5-11.0)
[2023-08-13 11:19] LABS: Alanine Aminotransferase 18 IU/L (<35); Albumin 4.5 g/dL (3.5-5.0); Albumin Globulin Ratio 1.4 (1.0-2.8); Alkaline Phosphatase 63 U/L (38-126); Aspartate Aminotransferase 27 IU/L (14-36); BUN Creatinine Ratio 15.7 (6-22); Bilirubin Total 0.6 mg/dL (0.2-1.3); Blood Urea Nitrogen 13 mg/dL (7-17); Calcium 10.1 mg/dL (8.4-10.2); Carbon Dioxide 31 mmol/L (22-32); Chloride 103 mmol/L (98-107); Estimated Glomerular Filt Rate > 60 mL/min (>60); Globulin 3.3 g/dL (1.7-4.1); Glucose 103 mg/dL (80-110); HDL Cholesterol 77 mg/dL (40-60); HEMOLYSIS 24 (0-50); Potassium 4.3 mmol/L (3.4-5.1); Sodium 139 mmol/L (137-145); Total Protein 7.8 g/dL (6.3-8.2); Triglycerides 120 mg/dL (35-150)
[2023-08-13 11:34] LABS: Cholesterol 249 mg/dL (140-199); LDL Cholesterol Calculated 148 mg/dL (<100)
[2023-08-13 11:43] LABS: TSH w/ Reflex to FT4 3.59 uIU/mL (0.47-4.68)
== END ==
PROVIDERS: Family Provider Registered Nurse Diabetes Educator; PCP Registered Nurse Diabetes Educator; Referring Provider Registered Nurse Diabetes Educator; Visit Provider Registered Nurse Diabetes Educator
DX: Z51.81 Encounter for therapeutic drug level monitoring (principal); R20.2 Paresthesia of skin; R20.0 Anesthesia of skin; E03.9 Hypothyroidism, unspecified; M54.2 Cervicalgia; G89.29 Other chronic pain; E78.5 Hyperlipidemia, unspecified
CPT/HCPCS: 72050; 80053; 80061; 84443; 85027

== ENCOUNTER → 2023-10-15 14:38 | Outpatient (CLI) | payer OTHER, SELFPAY ==
[2023-10-15 17:37] LABS: Vitamin D 25 Hydroxy (D3) 41.4 ng/mL (30.0-100.0)
[2023-10-15 17:44] LABS: Free T4, Direct Thyroxine 0.97 ng/dL (0.78-2.19)
[2023-10-15 17:58] LABS: Thyroid Stimulating Hormone 1.47 uIU/mL (0.47-4.68)
[2023-10-15 18:36] LABS: Folate > 20.0 ng/mL (2.76-20.0); Vitamin B12 941 pg/mL (239-931)
[2023-10-16 10:49] LABS: Hemoglobin A1C% w Est Avg Glu 5.3 % (4.0-6.0)
== END ==
PROVIDERS: Family Provider Registered Nurse Diabetes Educator; PCP Registered Nurse Diabetes Educator; Referring Provider Student in an Organized Health Care Education/Training Program; Visit Provider Student in an Organized Health Care Education/Training Program
DX: E03.9 Hypothyroidism, unspecified (principal)
CPT/HCPCS: 36415; 82306; 82607; 82746; 83036; 84439; 84443

== ENCOUNTER → 2023-11-30 15:44 | Outpatient (CLI) | payer OTHER, SELFPAY ==
--- NOTE | 2023-11-30 | DI.MG.S_ITS ---
BILATERAL DIGITAL SCREENING MAMMOGRAM 3D/2D WITH CAD: 11/30/2023 CLINICAL: Routine screening. Comparison is made to exam dated: 02/07/2022 mammogram - [facility]. There are scattered areas of fibroglandular density in both breasts (category b / 25%-50% glandular tissue). Current study was also evaluated with a Computer Aided Detection (CAD) system. No significant masses, calcifications, or other findings are seen in either breast. There has been no significant interval change. IMPRESSION: NEGATIVE There is no mammographic evidence of malignancy. A 1 year screening mammogram is recommended. Based on the Tyrer Cuzick model (a risk assessment model) the patient's lifetime risk is 3.9% and her 10 year risk is 2.6%. According to the ACR, ACS, and NCCN guidelines, an annual breast MRI exam along with mammogram is recommended if the patient's lifetime risk is 20% or greater. This exam was interpreted at Station ID: [id number]. NOTE: For mammograms, a report in lay terms will be sent to the patient. Approximately 15% of breast malignancies will not be visualized mammographically. In the management of a palpable breast mass, a negative mammogram must not discourage biopsy of a clinically suspicious lesion. Electronically Signed By: Piper Marroquin M.D., PH.D [email or web address]/kim:11/30/2023 22:34:29 letter sent: Normal Exam ACR BI-RADS Category 1: Negative [id number]
== END ==
PROVIDERS: Family Provider Registered Nurse Diabetes Educator; PCP Registered Nurse Diabetes Educator; Referring Provider Registered Nurse Diabetes Educator; Visit Provider Registered Nurse Diabetes Educator
DX: Z12.31 Encounter for screening mammogram for malignant neoplasm of breast (principal); R92.323 Mammographic fibroglandular density, bilateral breasts
CPT/HCPCS: 77063; 77067

== ENCOUNTER → 2024-02-13 16:57 | Outpatient (CLI) | payer OTHER, SELFPAY ==
[2024-02-13 17:48] LABS: Alanine Aminotransferase 19 IU/L (<35); Albumin 3.9 g/dL (3.5-5.0); Albumin Globulin Ratio 1.8 (1.0-2.8); Alkaline Phosphatase 60 U/L (38-126); Aspartate Aminotransferase 28 IU/L (14-36); BUN Creatinine Ratio 11.6 (6-22); Bilirubin Total 0.4 mg/dL (0.2-1.3); Blood Urea Nitrogen 8 mg/dL (7-17); Calcium 9.4 mg/dL (8.4-10.2); Carbon Dioxide 32 mmol/L (22-32); Chloride 108 mmol/L (98-107); Estimated Glomerular Filt Rate > 60 mL/min (>60); Globulin 2.2 g/dL (1.7-4.1); Glucose 124 mg/dL (80-110); HEMOLYSIS 20 (0-50); Potassium 4.4 mmol/L (3.4-5.1); Sodium 143 mmol/L (137-145); Total Protein 6.1 g/dL (6.3-8.2)
[2024-02-13 17:54] LABS: NT-proBNP (BNP-Adult 18+) 481 pg/mL (<125)
== END ==
PROVIDERS: Family Provider Registered Nurse Diabetes Educator; PCP Registered Nurse Diabetes Educator; Referring Provider Physician Assistant; Visit Provider Physician Assistant
DX: R60.0 Localized edema (principal)
CPT/HCPCS: 36415; 80053; 83880

== ENCOUNTER → 2024-04-02 09:21 | Outpatient (CLI) | payer OTHER, SELFPAY ==
--- NOTE | 2024-04-02 09:22 | DI.ECHO.S_ITS ---
[facility]---------+ [facility] : : [address] : : [place] : : [id number] : : Phone: [phone] Echocardiogram Report + + :Name: DAVID VO Study Date: 04/02/2024 Height: 66 in : :Hospital ReadingLocation: Weight: 147 lb : : Gender: Female BSA: 1.8 m2 : :: 1950 Age: 73 yrs BP: 112/67 mmHg: :Reason For Study: ELEVATED BNP : :Ordering Physician: VANESSA, : :SARAI Performed By: Angeles Jha : :Referring: SARAI MENDEZ : + + Interpretation Summary The left ventricle is normal in size and wall thickness. The left ventricular ejection fraction is normal. The ejection fraction is estimated to be 55-60%. The right ventricle is normal in size and function. Mild to moderate MR. There is mild to moderate tricuspid regurgitation. The right ventricular systolic pressure is estimated to be at least 22 mmHg based on an estimated right atrial pressure of 3 mm Hg. There is aortic root sclerosis/calcification. There is mild luminal irregularity and echogenicity in the abdominal aorta, suggestive of aortic atherosclerotic disease. Procedure: A two-dimensional transthoracic echocardiogram with color flow and Doppler was performed. The study quality was technically adequate. There is no prior echocardiogram noted for this patient. The patient was in sinus rhythm with heart rates between 62-75 bpm during the exam. Left Ventricle: The left ventricle is normal in size and wall thickness. There is no thrombus. The ejection fraction is estimated to be 55-60%. The left ventricular ejection fraction is normal. There are no focal wall motion abnormalities. Diastolic parameters suggest a relaxation abnormality of the left ventricle, consistent with probable normal filling pressures. Right Ventricle: The right ventricle is normal in size and function. Atria: The left atrial size is normal. Right atrial size is normal. There is no Doppler evidence for an interatrial shunt. Mitral Valve: The mitral valve leaflets are slightly calcified. There is mild to moderate mitral regurgitation. The mitral regurgitant jet is eccentrically directed. Aortic Valve: The aortic valve is trileaflet. The aortic valve opens well. The aortic valve is slightly calcified. There is no aortic valve stenosis. No aortic regurgitation is present. Tricuspid Valve: The tricuspid valve is normal. There is mild to moderate tricuspid regurgitation. The right ventricular systolic pressure is estimated to be at least 22 mmHg based on an estimated right atrial pressure of 3 mm Hg. Pulmonic Valve: The pulmonic valve leaflets are thin and pliable; valve motion is normal. There is trace pulmonic regurgitation. Great Vessels: The aortic root is normal size. There is aortic root sclerosis/calcification. The dimensions of the ascending aorta are normal. There is mild luminal irregularity and echogenicity in the abdominal aorta, suggestive of aortic atherosclerotic disease. The IVC is of normal diameter and collapses greater than 50% with a sniff. This suggests a low right atrial pressure of 3 mm Hg. Pericardium/ Pleura There is no pericardial effusion. There is no pleural effusion. MMode/2D Measurements & Calculations LVIDd: 3.9 cm LVOT diam: 2.0 cm LVIDs: 2.4 cm Ao root diam: 3.5 cm FS: 38.6 % Ao Arch Diam (Prox Trans): 1.6 cm EPSS: 0.43 cm IVSd: 0.63 cm LVPWd: 0.70 cm LV alejo. diameter/BSA (cm/m^2): 2.2 LV sys. diameter/BSA (cm/m^2): 1.4 LA A2 area: 14.6 cm2 RA long axis: 4.8 cm LA A4 area: 21.5 cm2 RA area: 16.1 cm2 LA length (vol): 5.7 cm RA vol: 45.8 ml LA vol: 46.7 ml RA : 26.1 ml/m2 LA vol index: 26.6 ml/m2 IVC diam: 1.3 cm RVD1 (basal): 3.7 cm TAPSE: 1.6 cm Doppler Measurements & Calculations Ao V2 max: 138.9 cm/sec LVOT Max Nitish: 103.0 cm/sec Ao V2 mean: 97.0 cm/sec LV V1 max P.2 mmHg Ao max P.7 mmHg LV V1 VTI: 22.7 cm Ao mean P.2 mmHg BETTYE(I,D): 2.3 cm2 Ao V2 VTI: 31.8 cm BETTYE(V,D): 2.4 cm2 sev ratio: 0.71 BETTYE indexed to BSA (cm^2/m^2): 1.3 MV E max nitish: 74.4 cm/sec TR max nitish: 219.0 cm/sec MV A max nitish: 89.6 cm/sec TR max P.2 mmHg MV E/A: 0.83 PA V2 max: 80.4 cm/sec Med Peak E' Nitish: 8.4 cm/sec PA V2 mean: 57.2 cm/sec E/E' med: 8.9 PA mean P.5 mmHg Lat Peak E' Nitish: 9.4 cm/sec PA pr(Accel): 37.9 mmHg E/E' lat: 7.9 E/e' average: 8.4 MV dec time: 0.23 sec SV(LVOT): 73.6 ml Reading Physician:05:23 PM
== END ==
LOC: ECHO 09:22
PROVIDERS: Family Provider Registered Nurse Diabetes Educator; PCP Registered Nurse Diabetes Educator; Referring Provider Registered Nurse Diabetes Educator; Visit Provider Registered Nurse Diabetes Educator
DX: I08.1 Rheumatic disorders of both mitral and tricuspid valves (principal); R60.0 Localized edema; R79.89 Other specified abnormal findings of blood chemistry
CPT/HCPCS: 93306

== ENCOUNTER 2024-04-15 15:01 | Inpatient (IN) | payer OTHER, SELFPAY ==
[2024-04-15 15:05] VITALS: BP 118/56; PULSE 82; RESP 18; TEMP 36.3; O2SAT 99; BMI 23.7
--- NOTE | 2024-04-15 15:11 | DI.RAD.S_ITS ---
PROCEDURE: XR HIP W PEL IF DONE RT 2V INDICATIONS: fall/pain TECHNIQUE: 2 views of the hip were acquired. COMPARISON: None. FINDINGS: Bones: [id number] bilateral hip arthrosis. No acute displaced fracture or dislocation. There is a questionable irregularity in the right inferior pubic bone. Soft tissues: No suspicious calcifications. IMPRESSION: [id number] bilateral hip arthrosis. No displaced fracture. Questionable age-indeterminate irregularity right inferior pubic bone. If there is high concern for occult injury, consider repeat radiography or cross-sectional imaging. Dictated by: Mich Merino M.D. on 04/15/2024 at 16:09 Approved by: Mich Merino M.D. on 04/15/2024 at 16:11
--- NOTE | 2024-04-15 17:21 | DI.CT.S_ITS ---
PROCEDURE: CT PEL WO CON INDICATIONS: ?pelvic fx TECHNIQUE: Noncontrast 3 mm axial sections acquired through the bony pelvis, with coronal and sagittal reformatting. COMPARISON: [facility], CR, XR HIP W PEL IF DONE RT 2V, 04/15/2024, 15:12. FINDINGS: Image quality: Excellent. Bones: Mildly displaced superior right pubic ramus fracture. Remaining osseous structures appear intact. Mild arthritic changes within the hips bilaterally as well as degenerative changes within the lower lumbar spine. Soft tissues: Prominent colonic stool without obstruction. Bladder is distended. Minimal muscular prominent/edema adjacent to superior ramus fracture. IMPRESSION: Mildly displaced right superior ramus fracture. Dictated by: Cherrie Urena M.D. on 04/15/2024 at 17:54 Approved by: Cherrie Urena M.D. on 04/15/2024 at 17:56
--- NOTE | 2024-04-15 18:43 | ED_ITS ---
HPI - Extremity Injury (Lower) <Yariel Fowler PA-C - Last Filed: 04/15/24 19:04> General Chief Complaint: Extremity Injury, Lower Stated Complaint: fall, rt hip pain Time Seen by Provider: 04/15/24 16:22 Source: patient Mode of arrival: Wheelchair History of Present Illness HPI Narrative: 73-year-old female with past medical history dyslipidemia, depression, osteopenia, hypothyroidism presents to the ED status post a mechanical fall sustained earlier today. Patient states that she was on a walk with her grandchildren when she misstepped on a tree root, which caused her to trip and fall on her right hip. Patient was unable to stand up and walk after the fall, was helped up by her grandson. Patient is having trouble bearing weight and walking. Patient complains of pain in the right groin. Patient denies numbness, tingling, weakness. No head strike or loss of consciousness. Related Data Home Medications Medication Instructions Recorded Confirmed thyroid (pork) 90 mg tablet 65 mg PO DAILY 01/22/23 04/16/24 ([place] Thyroid) Lactobacil.acidophilus-Bifido.animalis 1 cap PO DAILY 04/10/23 04/15/24 5 billion cell sprinkle capsule (Probiotic) ascorbic acid (vitamin C) 1,000 mg 1 g PO DAILY 04/10/23 04/16/24 capsule calcium carbonate (Calcium 500) 1,000 mg PO DAILY 04/10/23 04/15/24 cinnamon bark 500 mg capsule 2,000 mg PO DAILY 04/10/23 04/15/24 coenzyme Q10 75 mg capsule (Ultra 150 mg PO DAILY 04/10/23 04/15/24 CoQ10) fexofenadine 180 mg tablet 180 mg PO DAILY 04/10/23 04/15/24 ([facility] Allergy) guaifenesin 600 mg tablet, 600 mg PO BID 04/10/23 04/15/24 extended release 12 hr (Mucinex) magnesium oxide 500 mg capsule 500 mg PO BEDTIME 04/10/23 04/15/24 multivitamin (Daily Multi-Vitamin 1 tab PO DAILY 04/10/23 04/15/24 tablet) omega 6-[id number]-fish oil 100 1,000 cap PO DAILY 04/10/23 04/15/24 mg-160 mg-1,000 mg capsule (Fish Oil) evolocumab 140 mg/mL subcutaneous 140 mg SUBCUT Q2W 12/11/23 04/15/24 pen injector (Rudi Rubin) Previous Rx's Medication Instructions Recorded docusate sodium 100 mg capsule 100 mg PO BID #180 caps 12/15/22 (Colace) ondansetron HCl 4 mg tablet 4 mg PO Q8H PRN nausea and 12/15/22 vomiting #30 tabs sumatriptan succinate 100 mg tablet 100 mg PO ONCE PRN Pain (Scale 12/15/22 Score 7-10) #10 tabs montelukast 10 mg tablet 10 mg PO QPM #90 tabs 08/14/23 (Singulair) omeprazole 20 mg capsule,delayed 20 mg PO DAILY #90 caps 08/14/23 release naproxen 250 mg tablet 250 mg PO BID PRN pain #90 tabs 10/31/23 azelastine 137 mcg (0.1 %) nasal 2 spray intranasal BID #90 mL 12/11/23 spray aerosol gabapentin 300 mg capsule 900 mg (3 x 300 mg) PO BEDTIME 12/11/23 #270 caps beclomethasone dipropionate 80 2 inh intranasal DAILY #10.6 grams 01/07/24 mcg/actuation nasal HFA inhaler fexofenadine 60 mg-pseudoephedrine 1 tab PO Q12H PRN allergy symptoms 01/21/24 ER 120 mg tablet,ext.release,12 hr #60 tabs (Arlen-D 12 Hour) pseudoephedrine HCl 30 mg tablet 60 mg (2 x 30 mg) PO Q4-6H PRN 02/25/24 (Nasal Decongestant nasal congestion #20 tabs (pseudoephedrine)) trazodone 150 mg tablet 150 mg PO BEDTIME PRN sleep #90 04/02/24 tabs Allergies Allergy/AdvReac Type Severity Reaction Status Date / Time nitrofurantoin Allergy Mild Rash Verified 04/02/24 12:34 [From Macrodantin] erythromycin base Allergy Unknown Verified 04/02/24 12:34 Penicillins Allergy Unknown Rash Verified 04/02/24 12:34 tetracycline Allergy Unknown Verified 04/02/24 12:34 aspirin Allergy facial Verified 04/02/24 12:34 swelling thyroid meds Allergy Mild Rash Uncoded 04/02/24 12:34 Review of Systems <Hyma Malcolm, PA-C - Last Filed: 04/15/24 19:04> Constitutional Constitutional: Denies chills, Denies fatigue, Denies fever(s), Denies frequent falls, Denies lethargy and Denies weakness Eyes Eyes: Denies change in vision, Denies eye discharge, Denies irritation and Denies loss of vision ENT Ears, Nose, Mouth, and Throat: Denies change in voice, Denies dizziness, Denies neck pain, Denies sore throat and Denies throat swelling Cardiovascular Cardiovascular: Denies chest pain, Denies irregular heart rhythm, Denies lightheadedness, Denies palpitations, Denies dyspnea, Denies dyspnea on exertion and Denies orthopnea Respiratory Respiratory: Denies cough, Denies dyspnea, Denies dyspnea on exertion and Denies wheezing Gastrointestinal Gastrointestinal: Denies abdominal pain, Denies change in bowel habits, Denies diarrhea, Denies nausea and Denies vomiting Musculoskeletal Musculoskeletal: Denies neck pain and Denies numbness Comments: Right-sided groin pain Integumentary/Breasts Skin/Breast: Denies pruritus, Denies erythema, Denies rash and Denies wounds Neurologic Neurologic: Denies behavioral changes, Denies confusion, Denies dizziness, Denies frequent falls, Denies loss of vision, Denies numbness and Denies weakness Psychiatric Psychiatric: Denies anxiety, Denies behavioral changes, Denies confusion, Denies depression, Denies homicidal ideation and Denies suicidal ideation Endocrine Endocrine: Denies fatigue, Denies flushing and Denies palpitations Hematologic/Lymphatic Hematologic/Lymphatic: Denies easy bruising Allergic/Immunologic Allergic/Immunologic: Denies urticaria, Denies throat swelling and Denies wheezing Patient History <Yariel Fowler PA-C - Last Filed: 04/15/24 19:04> Medical History Abdominal discomfort Other low back pain Osteopenia Back pain Pneumonia GI bleed Dyslipidemia Allergic rhinitis Elevated LDL cholesterol level Chronic low back pain Insomnia Sinusitis Depression (~1996) Chronic back pain (~1970) Carpal tunnel syndrome (~1994) Mumps (~1964) Chicken pox Cataracts, bilateral (~2019) Hypothyroidism (~2007) Surgical History Anesthesia History of gastrointestinal surgery (~1975) History of nasal surgery (~2014) History of tonsillectomy (~1975) Cat bite of finger (~2013) Family History Father Cancer Diabetes mellitus History of heart disease History of heart bypass surgery Mother History of heart disease Hyperlipidemia Hypertension Sister Diabetes mellitus Social History household members: none Smoking Status: Never smoker alcohol intake: never Smoking Status: Never smoker alcohol intake frequency: holidays/special occasions only Substance Use Type: marijuana Exam <Yariel Fowler PA-C - Last Filed: 04/15/24 19:04> Narrative Exam Narrative: Const General:?cooperative, healthy appearing and comfortable HENHI Head:?normal to inspection Ears:?hearing grossly normal bilaterally Nose:?external nose normal Face and sinus:?normal facial exam and sinuses nontender Mouth:?oral mucosae normal Throat:?posterior oropharynx normal Eyes General:?appearance normal, both eyes and all related structures Neck Neck:?normal visual inspection and no lymphadenopathy noted Resp Effort & Inspection:?normal respiratory effort Auscultation:?clear to auscultation bilaterally Cardio Rate:?regular rate Rhythm:?regular rhythm Musculoskeletal No bruising or deformities noted on exam. Patient unable to stand up and walk without extreme pain. Patient is neurovascularly intact. Neuro General:?patient alert, patient awake and patient oriented x3 Initial Vital Signs Initial Vital Signs: Vital Signs Temperature 97.3 F L 04/15/24 15:05 Pulse Rate 82 04/15/24 15:05 Respiratory Rate 18 04/15/24 15:05 Blood Pressure 118/56 L 04/15/24 15:05 Pulse Oximetry 99 04/15/24 15:05 Oxygen Delivery Method Room Air 04/15/24 15:05 <Margarita Montero MD - Last Filed: 04/16/24 07:43> Initial Vital Signs Initial Vital Signs: Vital Signs Temperature 97.3 F L 04/15/24 15:05 Pulse Rate 82 04/15/24 15:05 Respiratory Rate 18 04/15/24 15:05 Blood Pressure 118/56 L 04/15/24 15:05 Pulse Oximetry 99 04/15/24 15:05 Oxygen Delivery Method Room Air 04/15/24 15:05 Course <Yariel Fowler PA-C - Last Filed: 04/15/24 19:04> Orders Ordered: ED Orders 04/16/24 07:00 Comprehensive Metabolic Panel DAILY Magnesium DAILY 04/17/24 07:00 Comprehensive Metabolic Panel DAILY Magnesium DAILY 04/18/24 07:00 Comprehensive Metabolic Panel DAILY Magnesium DAILY Acetaminophen (Acetaminophen 325 Mg Tablet) 650 mg PO QID PRN PRN Reason: Pain, Mild (1-3) Albuterol (Albuterol 2.5 Mg/3 Ml Neb (Adult)) 2.5 mg INH [id number] PRN PRN Reason: Dyspnea Ascorbic Acid (Ascorbic Acid 500 Mg Tablet) 1,000 mg PO Q6H [facility] Last Admin: 04/16/24 05:05 Dose: Not Given Documented By: Admin: 04/15/24 22:34 Dose: Not Given Documented By: HAILE Benzonatate (Benzonatate 100 Mg Capsule) 100 mg PO TID PRN PRN Reason: Cough Bisacodyl (Bisacodyl 5 Mg Tablet) 10 mg PO DAILY PRN PRN Reason: Constipation Bupropion HCl (Bupropion Xl 150 Mg Tab) 150 mg PO DAILY [facility] Last Admin: 04/15/24 22:17 Dose: Not Given Documented By: BR Calcium Carbonate (Calcium Carbonate 500 Mg Tab) 1,000 mg PO DAILY [facility] Calcium Carbonate (Calcium Carbonate 500 Mg Tab) 1,000 mg PO Q4HR PRN PRN Reason: Dyspepsia Docusate Sodium (Docusate 100 Mg Capsule) 100 mg PO BID [facility] Last Admin: 04/15/24 22:41 Dose: 100 mg Documented By: HAILE Fluticasone Propionate (Fluticasone 120 [place]/16 Gm [place].Susp) 2 spray NASAL DAILY [facility] Gabapentin (Gabapentin 300 Mg Capsule) 900 mg PO BEDTIME [facility] Last Admin: 04/15/24 22:41 Dose: 900 mg Documented By: HAILE Guaifenesin (Guaifenesin Er 600 Mg Tab) 600 mg PO BID [facility] Last Admin: 04/15/24 22:41 Dose: 600 mg Documented By: HAILE Hydralazine HCl (Hydralazine 20 Mg/Ml Vial) 10 mg IV Q6HR PRN PRN Reason: SBP>= 160 or DBP >=110 Hydromorphone HCl (Hydromorphone 0.5 Mg Inj) 0.5 mg IV Q2H PRN PRN Reason: Pain, Severe (7-10) Last Admin: 04/16/24 05:11 Dose: 0.5 mg Documented By: Admin: 04/16/24 01:18 Dose: 0.5 mg Documented By: HAILE Sodium Chloride (Normal Saline 0.9%) 1,000 mls @ 100 mls/hr IV CONT [facility] Last Admin: 04/15/24 22:18 Dose: Not Given Documented By: HAILE Lorazepam (Lorazepam 2 Mg/Ml Inj) 0.25 mg IV Q4HR PRN PRN Reason: Anxiety Magnesium Oxide (Magnesium Oxide 400 Mg Tablet) 400 mg PO DAILY [facility] Melatonin (Melatonin 3 Mg Tablet) 9 mg PO BEDTIME PRN PRN Reason: insomnia Montelukast Sodium (Montelukast 10 Mg Tablet) 10 mg PO QPM [facility] Multivitamins (Multivitamin 1 Tablet) 1 tab PO DAILY [facility] Naloxone HCl (Naloxone 0.4 Mg/Ml Vial) 0.2 mg IV Q2MIN PRN PRN Reason: Opiate Reversal Naproxen (Naproxen 250 Mg Tablet) 250 mg PO BID PRN PRN Reason: pain Ondansetron HCl (Ondansetron 4 Mg Odt) 4 mg PO Q8H PRN PRN Reason: Nausea And Vomiting Ondansetron HCl (Ondansetron 4 Mg/2 Ml Inj) 4 mg IV Q8HR PRN PRN Reason: Nausea And Vomiting Oxycodone HCl (Oxycodone Ir 5 Mg Tablet) 5 mg PO Q3H PRN PRN Reason: Pain, Moderate (4-6) Last Admin: 04/15/24 22:48 Dose: 5 mg Documented By: HAILE Pantoprazole Sodium (Pantoprazole Dr 20 Mg Tablet) 20 mg PO 0600 [facility] Last Admin: 04/16/24 05:11 Dose: 20 mg Documented By: HAILE Pseudoephedrine HCl (Pseudoephedrine 30 Mg Tablet) 60 mg PO Q4H PRN PRN Reason: nasal congestion Sumatriptan Succinate (Sumatriptan 25 Mg Tablet) 100 mg PO DAILY PRN PRN Reason: Headache Thyroid (Thyroid, Pork 30 Mg Tablet) 60 mg PO DAILY [facility] Last Admin: 04/15/24 22:44 Dose: Not Given Documented By: HAILE Trazodone HCl (Trazodone 50 Mg Tablet) 150 mg PO BEDTIME PRN PRN Reason: sleep Last Admin: 04/15/24 22:40 Dose: 150 mg Documented By: HAILE Vitamin D (Cholecalciferol (Vitamin D3) 1,000 Unit Tablet) 1,000 unit PO DAILY [facility] Discontinued Medications Montelukast Sodium (Montelukast 10 Mg Tablet) 10 mg PO NOW ONE Stop: 04/15/24 22:27 Last Admin: 04/15/24 22:41 Dose: 10 mg Documented By: HAILE Oxycodone/Acetaminophen (Oxycodone/Acetaminophen 5/325 Tablet) 1 tab PO NOW ONE Stop: 04/15/24 18:42 Last Admin: 04/15/24 19:05 Dose: 1 tab Documented By: ADAM Thyroid (Thyroid, Pork 30 Mg Tablet) 65 mg PO DAILY [facility] Vital Signs Vital signs: Vital Signs - 8 hr 04/15/24 15:05 Temperature 97.3 F L Pulse Rate 82 Respiratory Rate 18 Blood Pressure 118/56 L Pulse Oximetry 99 Oxygen Delivery Method Room Air <Margarita Montero MD - Last Filed: 04/16/24 07:43> Orders Ordered: ED Orders 04/16/24 07:00 Comprehensive Metabolic Panel DAILY Magnesium DAILY 04/17/24 07:00 Comprehensive Metabolic Panel DAILY Magnesium DAILY 04/18/24 07:00 Comprehensive Metabolic Panel DAILY Magnesium DAILY Acetaminophen (Acetaminophen 325 Mg Tablet) 650 mg PO QID PRN PRN Reason: Pain, Mild (1-3) Albuterol (Albuterol 2.5 Mg/3 Ml Neb (Adult)) 2.5 mg INH [id number] PRN PRN Reason: Dyspnea Ascorbic Acid (Ascorbic Acid 500 Mg Tablet) 1,000 mg PO Q6H [facility] Last Admin: 04/16/24 05:05 Dose: Not Given Documented By: Admin: 04/15/24 22:34 Dose: Not Given Documented By: HAILE Benzonatate (Benzonatate 100 Mg Capsule) 100 mg PO TID PRN PRN Reason: Cough Bisacodyl (Bisacodyl 5 Mg Tablet) 10 mg PO DAILY PRN PRN Reason: Constipation Bupropion HCl (Bupropion Xl 150 Mg Tab) 150 mg PO DAILY [facility] Last Admin: 04/15/24 22:17 Dose: Not Given Documented By: BR Calcium Carbonate (Calcium Carbonate 500 Mg Tab) 1,000 mg PO DAILY [facility] Calcium Carbonate (Calcium Carbonate 500 Mg Tab) 1,000 mg PO Q4HR PRN PRN Reason: Dyspepsia Docusate Sodium (Docusate 100 Mg Capsule) 100 mg PO BID [facility] Last Admin: 04/15/24 22:41 Dose: 100 mg Documented By: HAILE Fluticasone Propionate (Fluticasone 120 [place]/16 Gm [place].Susp) 2 spray NASAL DAILY [facility] Gabapentin (Gabapentin 300 Mg Capsule) 900 mg PO BEDTIME [facility] Last Admin: 04/15/24 22:41 Dose: 900 mg Documented By: HAILE Guaifenesin (Guaifenesin Er 600 Mg Tab) 600 mg PO BID [facility] Last Admin: 04/15/24 22:41 Dose: 600 mg Documented By: HAILE Hydralazine HCl (Hydralazine 20 Mg/Ml Vial) 10 mg IV Q6HR PRN PRN Reason: SBP>= 160 or DBP >=110 Hydromorphone HCl (Hydromorphone 0.5 Mg Inj) 0.5 mg IV Q2H PRN PRN Reason: Pain, Severe (7-10) Last Admin: 04/16/24 05:11 Dose: 0.5 mg Documented By: Admin: 04/16/24 01:18 Dose: 0.5 mg Documented By: HAILE Sodium Chloride (Normal Saline 0.9%) 1,000 mls @ 100 mls/hr IV CONT [facility] Last Admin: 04/15/24 22:18 Dose: Not Given Documented By: HAILE Lorazepam (Lorazepam 2 Mg/Ml Inj) 0.25 mg IV Q4HR PRN PRN Reason: Anxiety Magnesium Oxide (Magnesium Oxide 400 Mg Tablet) 400 mg PO DAILY [facility] Melatonin (Melatonin 3 Mg Tablet) 9 mg PO BEDTIME PRN PRN Reason: insomnia Montelukast Sodium (Montelukast 10 Mg Tablet) 10 mg PO QPM [facility] Multivitamins (Multivitamin 1 Tablet) 1 tab PO DAILY [facility] Naloxone HCl (Naloxone 0.4 Mg/Ml Vial) 0.2 mg IV Q2MIN PRN PRN Reason: Opiate Reversal Naproxen (Naproxen 250 Mg Tablet) 250 mg PO BID PRN PRN Reason: pain Ondansetron HCl (Ondansetron 4 Mg Odt) 4 mg PO Q8H PRN PRN Reason: Nausea And Vomiting Ondansetron HCl (Ondansetron 4 Mg/2 Ml Inj) 4 mg IV Q8HR PRN PRN Reason: Nausea And Vomiting Oxycodone HCl (Oxycodone Ir 5 Mg Tablet) 5 mg PO Q3H PRN PRN Reason: Pain, Moderate (4-6) Last Admin: 04/15/24 22:48 Dose: 5 mg Documented By: BR Pantoprazole Sodium (Pantoprazole Dr 20 Mg Tablet) 20 mg PO 0600 [facility] Last Admin: 04/16/24 05:11 Dose: 20 mg Documented By: BR Pseudoephedrine HCl (Pseudoephedrine 30 Mg Tablet) 60 mg PO Q4H PRN PRN Reason: nasal congestion Sumatriptan Succinate (Sumatriptan 25 Mg Tablet) 100 mg PO DAILY PRN PRN Reason: Headache Thyroid (Thyroid, Pork 30 Mg Tablet) 60 mg PO DAILY [facility] Last Admin: 04/15/24 22:44 Dose: Not Given Documented By: HAILE Trazodone HCl (Trazodone 50 Mg Tablet) 150 mg PO BEDTIME PRN PRN Reason: sleep Last Admin: 04/15/24 22:40 Dose: 150 mg Documented By: HAILE Vitamin D (Cholecalciferol (Vitamin D3) 1,000 Unit Tablet) 1,000 unit PO DAILY [facility] Discontinued Medications Montelukast Sodium (Montelukast 10 Mg Tablet) 10 mg PO NOW ONE Stop: 04/15/24 22:27 Last Admin: 04/15/24 22:41 Dose: 10 mg Documented By: HAILE Oxycodone/Acetaminophen (Oxycodone/Acetaminophen 5/325 Tablet) 1 tab PO NOW ONE Stop: 04/15/24 18:42 Last Admin: 04/15/24 19:05 Dose: 1 tab Documented By: ADAM Thyroid (Thyroid, Pork 30 Mg Tablet) 65 mg PO DAILY [facility] Vital Signs Vital signs: Vital Signs - 8 hr 04/15/24 15:05 Temperature 97.3 F L Pulse Rate 82 Respiratory Rate 18 Blood Pressure 118/56 L Pulse Oximetry 99 Oxygen Delivery Method Room Air MDM - Extremity Injury (Lower) <Yariel Fowler PA-C - Last Filed: 04/15/24 19:04> MDM Narrative Medical decision making narrative: 73-year-old female with past medical history dyslipidemia, depression, osteopenia, hypothyroidism presents to the ED status post a mechanical fall sustained earlier today. Concern for fracture/dislocation versus musculoskeletal sprain/strain versus other. X-ray was obtained which was inconclusive for a pelvic fracture. Pelvic CT shows a mildly displaced right superior ramus fracture. Dr. Langford from ortho surgery was consulted. He recommends admitting for pain control and physical therapy. Patient may follow- up with PCP as needed for further evaluation. Per Dr. Langford, no indication for surgery. Discussed findings with patient. Patient is tearful since she lives alone and is concerned about how she will ambulate and get around. Will consult hospitalist, admit patient. Patient given Percocet for pain relief. Hospitalist Dr. Jami Cantu was consulted and he graciously accepts to admit the patient for pain control and physical therapy. Patient admitted as observation. Discharge Plan Departure Patient Disposition: Admitted as Observation Clinical Impression: Fracture of pubic ramus Qualifiers: Encounter type: initial encounter Fracture type: closed Laterality: right Qualified Code(s): S32.591A - Other specified fracture of right pubis, initial encounter for closed fracture Admit Date/Time: 04/15/24 19:04 Admit Provider: Mainor Cantu ED Sign-out <Margarita Montero MD - Last Filed: 04/16/24 07:43> Cosign ED Attending Cosignature Attestation: I did not see this patient. I was available all times for consultation.
[2024-04-15] MEDS: OXYCODONE/ACETAMINOPHEN 5/325 TABLET 1 TAB PO (19:05)
[2024-04-15 20:54] VITALS: BP 125/61; PULSE 75; RESP 18; O2SAT 98
[2024-04-15 21:00] VITALS: BP 162/72; PULSE 70; RESP 15; TEMP 37.1; O2SAT 100
[2024-04-15 21:23] VITALS: BMI 22.9
[2024-04-15] MEDS: TRAZODONE 50 MG TABLET 150 MG PO (22:40)
[2024-04-15] MEDS: GABAPENTIN 300 MG CAPSULE 900 MG PO (22:41)
[2024-04-15] MEDS: guaiFENesin ER 600 MG TAB PO (22:41)
[2024-04-15] MEDS: DOCUSATE 100 MG CAPSULE PO (22:41)
[2024-04-15] MEDS: MONTELUKAST 10 MG TABLET PO (22:41)
[2024-04-15] MEDS: OXYCODONE IR 5 MG TABLET PO (22:48)
--- NOTE | 2024-04-15 23:55 | PM.HP.1 ---
History of Present Illness History of Present Illness Chief complaint: fall, rt hip pain Narrative: 73 years old female with history of hypothyroidism, hyperlipidemia, depression, osteoporosis, GERD, migraine, insomnia, chronic back pain presented to the ER after sustaining mechanical fall earlier today. The patient was walking with her grandchildren when she missstepped on a tree root, tripped and fell on her right side. The patient was not able to stand up and walk after the fall due to pain and trouble bearing weight. She was complaining of severe right hip pain with movement. Denies any neurodeficits, loss of consciousness or head injury. Pelvic CT scan shows mildly displaced right superior ramus fracture. Orthopedic surgery was consulted and recommended no surgery but admission for physical therapy and pain control. [facility] Medical History Abdominal discomfort Other low back pain Osteopenia Back pain Pneumonia GI bleed Dyslipidemia Allergic rhinitis Elevated LDL cholesterol level Chronic low back pain Insomnia Sinusitis Depression (~1996) Chronic back pain (~1970) Carpal tunnel syndrome (~1994) Mumps (~1964) Chicken pox Cataracts, bilateral (~2019) Hypothyroidism (~2007) Surgical History Anesthesia History of gastrointestinal surgery (~1975) History of nasal surgery (~2014) History of tonsillectomy (~1975) Cat bite of finger (~2013) Family History Father Cancer Diabetes mellitus History of heart disease History of heart bypass surgery Mother History of heart disease Hyperlipidemia Hypertension Sister Diabetes mellitus Social History household members: none Smoking Status: Never smoker alcohol intake: never Meds Home Medications and Allergies Home Medications Medication Instructions Recorded Confirmed Type docusate sodium 100 mg capsule 100 mg PO BID #180 caps 12/15/22 04/15/24 Rx (Colace) ondansetron HCl 4 mg tablet 4 mg PO Q8H PRN nausea and 12/15/22 04/15/24 Rx vomiting #30 tabs sumatriptan succinate 100 mg tablet 100 mg PO ONCE PRN Pain (Scale 12/15/22 04/15/24 Rx Score 7-10) #10 tabs triamcinolone acetonide 0.1 % 1 applic topical BID #30 grams 12/15/22 04/02/24 Rx topical cream thyroid (pork) 90 mg tablet 65 mg PO DAILY 01/22/23 04/15/24 History ([place] Thyroid) Lactobacil.acidophilus-Bifido.animalis 1 cap PO DAILY 04/10/23 04/15/24 History 5 billion cell sprinkle capsule (Probiotic) ascorbic acid (vitamin C) 1,000 mg 1 g PO DAILY 04/10/23 04/15/24 History capsule calcium carbonate (Calcium 500) 1,000 mg PO DAILY 04/10/23 04/15/24 History cholecalciferol (vitamin D3) 25 25 mcg PO DAILY 04/10/23 04/02/24 History mcg (1,000 unit) capsule cinnamon bark 500 mg capsule 2,000 mg PO DAILY 04/10/23 04/15/24 History coenzyme Q10 75 mg capsule (Ultra 150 mg PO DAILY 04/10/23 04/15/24 History CoQ10) fexofenadine 180 mg tablet 180 mg PO DAILY 04/10/23 04/15/24 History ([place] All[facility]) guaifenesin 600 mg tablet, 600 mg PO BID 04/10/23 04/15/24 History extended release 12 hr (Mucinex) magnesium oxide 500 mg capsule 500 mg PO BEDTIME 04/10/23 04/15/24 History multivitamin (Daily Multi-Vitamin 1 tab PO DAILY 04/10/23 04/15/24 History tablet) omega 3-vea-xnn-fish oil 100 1,000 cap PO DAILY 04/10/23 04/15/24 History mg-160 mg-1,000 mg capsule (Fish Oil) montelukast 10 mg tablet 10 mg PO QPM #90 tabs 08/14/23 04/15/24 Rx (Singulair) omeprazole 20 mg capsule,delayed 20 mg PO DAILY #90 caps 08/14/23 04/15/24 Rx release naproxen 250 mg tablet 250 mg PO BID PRN pain #90 tabs 10/31/23 04/15/24 Rx bupropion HCl 150 mg 24 hr tablet, 150 mg PO QAM #30 tabs 12/03/23 04/02/24 Rx extended release azelastine 137 mcg (0.1 %) nasal 2 spray intranasal BID #90 mL 12/11/23 04/15/24 Rx spray aerosol evolocumab 140 mg/mL subcutaneous 140 mg SUBCUT Q2W 12/11/23 04/15/24 History pen injector (Rudi Rubin) gabapentin 300 mg capsule 900 mg (3 x 300 mg) PO BEDTIME 12/11/23 04/15/24 Rx #270 caps beclomethasone dipropionate 80 2 inh intranasal DAILY #10.6 grams 01/07/24 04/15/24 Rx mcg/actuation nasal HFA inhaler fexofenadine 60 mg-pseudoephedrine 1 tab PO Q12H PRN allergy symptoms 01/21/24 04/15/24 Rx ER 120 mg tablet,ext.release,12 hr #60 tabs ([place]-D 12 Hour) pseudoephedrine HCl 30 mg tablet 60 mg (2 x 30 mg) PO Q4-6H PRN 02/25/24 04/15/24 Rx (Nasal Decongestant nasal congestion #20 tabs (pseudoephedrine)) cefdinir 300 mg capsule 300 mg PO BID #14 caps 03/13/24 04/02/24 Rx trazodone 150 mg tablet 150 mg PO BEDTIME PRN sleep #90 04/02/24 04/15/24 Rx tabs Allergies Allergy/AdvReac Type Severity Reaction Status Date / Time nitrofurantoin Allergy Mild Rash Verified 04/02/24 12:34 [From Macrodantin] erythromycin base Allergy Unknown Verified 04/02/24 12:34 Penicillins Allergy Unknown Rash Verified 04/02/24 12:34 tetracycline Allergy Unknown Verified 04/02/24 12:34 aspirin Allergy facial Verified 04/02/24 12:34 swelling thyroid meds Allergy Mild Rash Uncoded 04/02/24 12:34 Review of Systems Review of Systems ROS: Yes All systems reviewed with the patient and are negative except as otherwise documented Constitutional Constitutional: Reports as per HPI and Reports system reviewed and no additional complaints, except as documented Eyes Eyes: Reports as per HPI and Reports system reviewed and no additional complaints, except as documented ENT Ears, Nose, Mouth, and Throat: Yes as per HPI and Yes system reviewed and no additional complaints, except as documented Cardiovascular Cardiovascular: Reports system reviewed and no additional complaints, except as documented Respiratory Respiratory: Reports system reviewed and no additional complaints, except as documented Gastrointestinal Gastrointestinal: Reports system reviewed and no additional complaints, except as documented Genitourinary Genitourinary: Reports system reviewed and no additional complaints, except as documented Musculoskeletal Musculoskeletal: Reports system reviewed and no additional complaints, except as documented, Reports abnormal gait and Reports numbness Neurologic Neurologic: Reports system reviewed and no additional complaints, except as documented, Reports abnormal gait, Reports confusion and Reports numbness Psychiatric Psychiatric: Reports system reviewed and no additional complaints, except as documented and Reports confusion Exam Vital Signs (past 8 hours): - 04/15/24 20:54 04/15/24 21:00 Temperature 98.7 F Pulse Rate 75 70 Respiratory Rate 18 15 Blood Pressure 125/61 162/72 H Pulse Oximetry 98 100 Oxygen Delivery Method Room Air Oxygen Flow Rate 0 Oxygen Delivery Method Room Air Oxygen Flow Rate 0 Const General: cooperative, comfortable and well developed Orientation: alert and oriented x3 HENMT Head: normal to inspection, normocephalic and atraumatic Face and sinus: normal facial exam Mouth: oral mucosae normal and moist mucous membranes Throat: posterior oropharynx normal Eyes General: appearance normal, both eyes and all related structures Pupils: PERRL EOM: EOM intact bilaterally Neck Neck: normal visual inspection and full ROM Chest Chest: normal inspection of the chest Resp Effort & Inspection: normal respiratory effort and able to speak in complete sentences Auscultation: clear to auscultation bilaterally Cardio Palpation: normal PMI Rate: regular rate Rhythm: regular rhythm Heart Sounds: S1 normal and S2 normal GI Inspection: normal to inspection Palpation: soft and no hepatosplenomegaly Auscultation: normal bowel sounds Skin General: no rashes or lesions noted Lesions: no lesions Rashes: no rashes Trauma: no lacerations or abrasions Neuro General: patient alert, patient awake, patient oriented x3 and no focal motor deficits Cranial Nerves: CN's II-XI intact bilaterally Cognition: normal cognition Speech: speech normal Gait: normal gait Motor: muscle tone normal throughout Sensory Exam: no sensory deficits noted Extrem General: full ROM and no calf tenderness Psych Appearance: grossly normal Mental Status: mental status grossly normal Speech and Movement: speech and movement normal Assessment & Plan Assessment & Plan narrative: Mildly displaced right superior ramus fracture after mechanical fall. No surgery required. -Pain control as needed -PT and OT evaluation -Fall precaution -Orthopedic surgery follow-up -Bowel regimen while on narcotics Hypothyroidism. Restart levothyroxine Chronic back pain. Restart gabapentin and bupropion Osteoporosis. Restart vitamin D and calcium supplement GERD. Restart omeprazole Migraine. Restart sumatriptan as needed Insomnia. Restart trazodone at bedtime Time-Based Coding :: [TOTAL MINUTES] spent with patient and on the chart (including review of chart, obtaining history, exam, reviewing outside data, placing orders, documenting exam and treatment plan, and counseling patient) on [DATE]. Quality VTE Deep Vein Thrombosis/Pulmonary Embolism Present on Admission: No MIPS - Admit I confirm the patient?s Advance Care Plan is present, Code status is documented, Surrogate decision maker is in patient?s record [If Yes, STOP here]: Yes MIPS - Meds 'Current medications' to include all prescriptions, [id number] products, herbals, cannabis/cannabidiol products, and vitamin/mineral/dietary (nutritional) supplements. I have utilized all available resources to obtain, update, or review the patient?s current medications. [If Yes, STOP here]: Yes
[2024-04-16] VITALS (9 sets, daily range): BP systolic 66–136; BP diastolic 37–75; PULSE 61–92; RESP 14–19; TEMP 36.2–36.9; O2SAT 95–99
[2024-04-16] MEDS: HYDROMORPHONE 0.5 MG INJ IV ×3 (01:18→21:46)
--- NOTE | 2024-04-16 01:26 | DI.RAD.S_ITS ---
PROCEDURE: XR SHOULDER LT 1V INDICATIONS: fall/shoulder pain TECHNIQUE: 1 view of the shoulder were acquired. COMPARISON: None. FINDINGS: Bones: There is a fracture of the surgical neck of the humerus which appears to extend to the greater tuberosity. There is moderate impaction and angulation of the distal fragment. The glenohumeral joint remains located. There is a nondisplaced fracture of the glenoid which extends to the articular surface. Osteoarthritic changes to the AC joint and glenohumeral joint are noted. No suspicious bony lesions. Visualized ribs appear intact. The bones are diffusely osteopenic. Soft tissues: No suspicious soft tissue calcifications. IMPRESSION: 1. There is a fracture of the surgical neck the humerus which appears to extend to the greater tuberosity. There is moderate impaction and angulation of the distal fragment. The glenohumeral joint remains located. 2. There is a nondisplaced fracture of the glenoid which extends to the articular surface. Dictated by: Miki Curry M.D. on 04/16/2024 at 9:46 Approved by: Miki Curry M.D. on 04/16/2024 at 9:54
--- NOTE | 2024-04-16 02:00 | PC.NURSE ---
pt up to unit from ED via wheelchair @ 2055. ambulated from the wheelchair to the bathroom as a 2x assist with a front wheel walker. tolerated ambulation quite well, despite condition. states 6/10 pain while moving but otherwise sufficient strength to navigate effectively using walker. A&O x4. hypertensive with a bp of 162/72. denies dizziness and lightheadedness. O2 sats of 100% on RA. lungs CTA bilaterally. no edema noted. LBM 7/22. active bowel sounds X4 and passing flatus. abdomen soft and non-tender. reports good appetite. small scratches visualized on posterior right shoulder, but otherwise skin is intact. no pressure wounds visualized. No IV access and persistently refuses to have one put in. states she doesn't like the feeling of the catheter in her skin and doesn't feel the need for one. notified of this and said that no IV access was okay for tonight. bed in lowest position and bed alarm is on. call vega is within reach. no other voiced concerns.
--- NOTE | 2024-04-16 03:35 | PC.NURSE ---
Addendum entered by Yessy Shepard R.N. 04/16/24 03:49: bolus complete, blood pressure now 136/70. HR 62. Pt states that she no longer feels dizzy and lightheaded. Original Note: pt rang call vega @ approximately 0045 to be assisted to the bathroom. This RN helped pt ambulate from the bed to the bathroom as 1x assist with walker. while ambulating back to bed, pt had an episode of syncope and sustained a fall. pt did not hit her head, but did hit her left shoulder into the side bed rail. This RN gently lowered pt to the ground while supporting her head. This RN notified the charge nurse for assistance. Pt alert and responsive post-fall but says she feels dizzy. blood pressure 66/37 with a MAP of 41. HR 67. O2 sats 97% on RA. notified. started a 22 gauge piv in the right AC and started a 1L normal saline bolus. pt transferred from the floor back to bed via nicole lift. Pt complains of left shoulder pain and can not extend it without sharp pain. PRN 0.5 mg dilaudid IV given and ice pack applied to left shoulder. xray of left shoulder ordered to rule out fracture. bed is in the lowest position with the bed alarm on. call light is within reach.
[2024-04-16] MEDS: PANTOPRAZOLE DR 20 MG TABLET PO (05:11)
--- NOTE | 2024-04-16 07:46 | P.PN_ITS ---
Subjective Subjective Interval history: Her pain is reasonably well controlled. She right pubic ramus fracture and a left humerus fracture. She denies any dyspnea. She was not been treated Exam Vital Signs (past 8 hours): - 04/16/24 01:00 04/16/24 01:30 04/16/24 04:00 Temperature 97.8 F Pulse Rate 67 62 70 Respiratory Rate 14 Blood Pressure 66/37 L 136/70 114/59 L Pulse Oximetry 97 98 Oxygen Flow Rate 0 0 04/16/24 04:06 Temperature 97.1 F L Pulse Rate 61 Respiratory Rate 15 Blood Pressure 128/58 L Pulse Oximetry 99 Oxygen Flow Rate Oxygen Delivery Method Room Air Oxygen Flow Rate 0 Narrative Exam Narrative: NAD, alert and oriented. Fluent speech. Lungs are clear, normal rate and effort. Heart is regular, no murmur gallop or rub. Abdomen is soft, non distended. Extremities are free of edema. Left arm is tender to touch in the proximal humerus. Objective Imaging Multiple studies:: My impression: Shoulder: prox humerus fracture. Radiologist's impression: Shoulder X-ray: Prox humerus fracture Pelvis CT: IMPRESSION: Mildly displaced right superior ramus fracture. Hip X-ray: [id number] bilateral hip arthrosis. No displaced fracture. Questionable age-indeterminate irregularity right inferior pubic bone. If there is high concern for occult injury, consider repeat radiography or cross-sectional imaging. Recent ECHO: The left ventricle is normal in size and wall thickness. The left ventricular ejection fraction is normal. The ejection fraction is estimated to be 55-60%. The right ventricle is normal in size and function. Mild to moderate MR. There is mild to moderate tricuspid regurgitation. The right ventricular systolic pressure is estimated to be at least 22 mmHg based on an estimated right atrial pressure of 3 mm Hg. There is aortic root sclerosis/calcification. There is mild luminal irregularity and echogenicity in the abdominal aorta, suggestive of aortic atherosclerotic disease. Labs 04/16/24 08:41 [facility] Medical History Abdominal discomfort Other low back pain Osteopenia Back pain Pneumonia GI bleed Dyslipidemia Allergic rhinitis Elevated LDL cholesterol level Chronic low back pain Insomnia Sinusitis Depression (~1996) Chronic back pain (~1970) Carpal tunnel syndrome (~1994) Mumps (~1964) Chicken pox Cataracts, bilateral (~2019) Hypothyroidism (~2007) Surgical History Anesthesia History of gastrointestinal surgery (~1975) History of nasal surgery (~2014) History of tonsillectomy (~1975) Cat bite of finger (~2013) Family History Father Cancer Diabetes mellitus History of heart disease History of heart bypass surgery Mother History of heart disease Hyperlipidemia Hypertension Sister Diabetes mellitus Social History household members: none Smoking Status: Never smoker alcohol intake: never Assessment & Plan Assessment & Plan narrative: Mildly displaced right superior ramus fracture after mechanical fall. Present on admission and active. -No surgery required. -Pain control as needed -PT and OT evaluation -Fall precaution -Orthopedic surgery follow-up -Bowel regimen while on narcotics Left proximal humerus fracture. Mildly displaced right superior ramus fracture after mechanical fall. Hypothyroidism. Present on admission and active. -Restart levothyroxine. Chronic back pain. Present on admission and active. -Restart gabapentin and bupropion. Osteoporosis. Present on admission and active. -Restart vitamin D and calcium supplement. GERD. Present on admission and active. -Restart omeprazole. Migraine. Present on admission and active. -Restart sumatriptan as needed. Insomnia. Present on admission and active. -Restart trazodone at bedtime Plan: -pain control, physical therapy and occupational therapy evaluations. -sling to left shoulder, orthopedic consult. -she will likely need intermediate facility support for transition. She was admitted to observation status, anticipate 1 night hospital stay. Full code. Time-Based Coding :: 35 min spent with patient and on the chart (including review of chart, obtaining history, exam, reviewing outside data, placing orders, documenting exam and treatment plan, and counseling patient) on 04/16. Quality VTE Deep Vein Thrombosis/Pulmonary Embolism Present on Admission: No MIPS - Admit I confirm the patient?s Advance Care Plan is present, Code status is documented, Surrogate decision maker is in patient?s record [If Yes, STOP here]: Yes MIPS - Meds 'Current medications' to include all prescriptions, [id number] products, herbals, cannabis/cannabidiol products, and vitamin/mineral/dietary (nutritional) supplements. I have utilized all available resources to obtain, update, or review the patient?s current medications. [If Yes, STOP here]: Yes
[2024-04-16 09:34] LABS: Alanine Aminotransferase 18 IU/L (<35); Albumin 3.4 g/dL (3.5-5.0); Albumin Globulin Ratio 1.5 (1.0-2.8); Alkaline Phosphatase 49 U/L (38-126); Aspartate Aminotransferase 29 IU/L (14-36); Bilirubin Total 0.5 mg/dL (0.2-1.3); Blood Urea Nitrogen 11 mg/dL (7-17); Calcium 7.9 mg/dL (8.4-10.2); Carbon Dioxide 25 mmol/L (22-32); Chloride 105 mmol/L (98-107); Estimated Glomerular Filt Rate > 60 mL/min (>60); Globulin 2.3 g/dL (1.7-4.1); Glucose 160 mg/dL (80-110); HEMOLYSIS 33 (0-50); Potassium 4.2 mmol/L (3.4-5.1); Sodium 135 mmol/L (137-145); Total Protein 5.7 g/dL (6.3-8.2)
[2024-04-16] MEDS: MULTIVITAMIN 1 TABLET 1 TAB PO (09:43)
[2024-04-16] MEDS: CHOLECALCIFEROL (VITAMIN D3) 1,000 UNIT TABLET 1000 UNIT PO (09:43)
[2024-04-16] MEDS: CALCIUM CARBONATE 500 MG TAB 1000 MG PO (09:43)
[2024-04-16] MEDS: FLUTICASONE 120 SPRAY/16 GM SPRAY.SUSP NASAL (09:43)
[2024-04-16] MEDS: MAGNESIUM OXIDE 400 MG TABLET PO (09:43)
[2024-04-16] MEDS: DOCUSATE 100 MG CAPSULE PO (09:43)
[2024-04-16] MEDS: THYROID, PORK 30 MG TABLET 60 MG PO (09:43)
[2024-04-16] MEDS: guaiFENesin ER 600 MG TAB PO ×2 (09:43→23:19)
[2024-04-16] MEDS: OXYCODONE IR 5 MG TABLET PO ×3 (09:44→23:22)
--- NOTE | 2024-04-16 11:15 | PT.IIE ---
Surgical History (Last Reviewed 04/16/24 @ 07:53 by Chris Bass MD) Anesthesia Cat bite of finger (~2013) History of gastrointestinal surgery (~1975) History of nasal surgery (~2014) History of tonsillectomy (~1975) Medical History (Last Reviewed 04/16/24 @ 07:53 by Chris Bass MD) Abdominal discomfort Allergic rhinitis Back pain Carpal tunnel syndrome (~1994) Cataracts, bilateral (~2019) Chicken pox Chronic back pain (~1970) Chronic low back pain Depression (~1996) Dyslipidemia Elevated LDL cholesterol level GI bleed Hypothyroidism (~2007) Insomnia Mumps (~1964) Osteopenia Other low back pain Pneumonia Sinusitis Physical Therapy Inpatient Evaluation/Re-Eval M1 PT/OT-IP Prior Functional Status Start: 04/16/24 12:21 Freq: NEEDED Status: Active Protocol: Document 04/16/24 11:15 AB (Rec: 04/16/24 12:42 AB [id number]) Medical Review Prior Functional Status Medical History Reviewed Yes Communication able to make needs known Mobility and Gait pt stated that she was independent with all mobilities and ambulation without AD Social History Household Members none Living Arrangements House Number of Floors (Floors) One Floor Number of Stairs To Enter/Railing? 1 step to enter Home Environment Standard Height Toilet Home Equipment Straight Cane M2 PT-IP Current Condition Start: 04/16/24 12:21 Freq: NEEDED Status: Active Protocol: Document 04/16/24 11:15 AB (Rec: 04/16/24 12:42 AB [id number]) Physical Therapy Current Condition Current Condition Evaluation Date 04/16/24 Treatment Diagnosis GLF; R superior ramus fx; L prox humeral fx; difficulty in walking Onset Date 04/15/24 M3 PT-IP Subjective Start: 04/16/24 12:21 Freq: NEEDED Status: Active Protocol: Document 04/16/24 11:15 AB (Rec: 04/16/24 12:42 AB [id number]) Subjective Physical Therapy Visit Type Type Initial Evaluation Visit Start Time 11:15 Visit Stop Time 12:15 Notes Talked to hospitalist to clarify L proximal humeral fx protocols/precautions and if ortho consult was ordered. per Dr. Bass, he has not ordered an ortho consult for L humerus fx and said that it is non-operative. asked the doctor if he wants a sling for pt and agreed also clarified for NWB and agreed. asked the doctor to put in an order for sling and weight bearing status and agreed. Number of BED RUBBER Visits 0 Physical Therapy Visit Comments Patient Comments requesting to use the toilet Therapy Pain Assessment Pain When Pain Assessed At Rest Pain Present Pain Present Pain Reported Location Left Shoulder Intensity 10 Scale Used Numeric (0 - 10) Pain Management Techniques Apply Cold,Distraction, Modification of Treatment,Re- positioning,Timing of Activity with Medications Right hip/groin Intensity 5 Scale Used Numeric (0 - 10) Pain Management Techniques Distraction,Modification of Treatment,Re-positioning, Timing of Activity with Medications M4 PT-IP Mobility and Gait Start: 04/16/24 12:21 Freq: NEEDED Status: Active Protocol: Document 04/16/24 11:15 AB (Rec: 04/16/24 12:42 AB [id number]) PT-Bed Mobility Assessment Supine to Sit Supine to Sit Maximum Assistance Scooting Scooting to Edge of Bed Maximum Assistance PT-Transfer Assessment Sit to and From Stand Sit to and from Stand Maximum Assistance,1 Person Assistance,2 Person Assistance ,Use of Upper Extremities Equipment Transfer Assistive Device Gait Belt,Steve Walker Orthotic/Prosthetic Devices or Brace: No Transfers Transfer Destination Bedside Commode Transfer Technique Stand Pivot Transfer Ability Level of Assist Maximum Assistance,1 Person Assistance,2 Person Assistance ,Use of Upper Extremities Comments Mobility Comments pt supine in bed and daughter initially in room but left afterwards. obtained PLOF and home set up from pt and daughter. pt requesting to use the toilet. informed pt regarding L shoulder precaution of immobilization and NWB, and RLE WBAT. pt understood. BP in supine: 121/ 75. pt completed supine to sit x 2 attempts to be able to sit up max A and max cues with HOB elevated. BP in sittin/51. pt with c/o dizziness. pt sat fro ~ 2-3 minutes and dizziness dissipated. BP rechecked: 111 /63. completed sit to stand max A x 1-2 and max cues. BP in standing 94/60. pt really needing to use the toilet and stand pivot to the bedside commode max A x 1-2 and max cues using hemiwalker. pt needing assist with hygiene care and brief management. BP after transfer: 117/62. pt completed sit to stand from bedside commode max A x 1-2 and max cues. assisted with hygiene care and brief management. step transfer to chair using hemiwalker max A x 1-2 and max cues. c/o dizziness. BP: 96/60. positioned pt on the chair. BP rechecked after ~ 2 min: 90 /52. elevated BLE up on chair . BP rechecked: 121/64. nurse aware of BP. informed pt regarding current level of assistance and SNF recommendation. pt agreed. Gait Assessment Comments Gait Comments unable at this time; only able to take small steps to transfer using hemiwalker PT-Balance Assessment Sitting Balance and Reactions Static Sitting Balance Ability Good Dynamic Sitting Balance Ability Good Standing Balance and Reactions Static Standing Balance Ability Poor Dynamic Standing Balance Ability Poor Device Used hemiwalker M5 PT-IP Objective Assessments Start: 04/16/24 12:21 Freq: NEEDED Status: Active Protocol: Document 04/16/24 11:15 AB (Rec: 04/16/24 12:42 AB [id number]) Orientation Orientation/Cognition Level of Alertness Alert Orientation Name,Situation Language Function Ability No Deficits Noted Safety Awareness Decreased Safety Awareness Memory Description No Deficits Noted Gross Range of Motion Lower Extremity ROM Assessment Within Functional Limits Strength Lower Extremity Strength Assessment Right Impaired Hip pain limiting Sensation Assessment Sensation Gross Sensation WNL Muscle Tone Muscle Tone WNL Yes M6 PT-IP Treatment Start: 04/16/24 12:21 Freq: NEEDED Status: Active Protocol: Document 04/16/24 11:15 AB (Rec: 04/16/24 12:42 AB [id number]) Physical Therapy Treatment Education Education Provided Precautions,Weight Bearing Status,Safety M7 PT-IP Assessment and Plan Start: 04/16/24 12:21 Freq: NEEDED Status: Active Protocol: Document 04/16/24 11:15 AB (Rec: 04/16/24 12:42 AB [id number]) PT Summary Assessment and Plan Potential Rehabilitation Potential Fair Status of Condition at Evaluation Unstable Summary Impairments Pain,ROM,Strength,Balance, Coordination,Sensation,Tone, Cognition,Bed Mobility, Transfers,Gait,Activity Tolerance Assessment Summary pt is a 73 y/o F who had a fall and sustained a R mildly displaced superior ramus fx. per ED EMR: ortho consult: no surgery needed. pt had another fall here in the hospital and sustained a L proximal humeral fx. Also no surgery needed per hospitalist and sling was ordered and pt NWB on LUE. pt currently requiring max A x 1-2 for transfers using hemiwalker and unable to ambulate at this time. pt also has orthostatic hypotension with c/o dizziness affecting mobility and activity tolerance. pt will require 24/7 assist and will benefit from SNF rehab. will continue to assess. Goals Bed Mobility Goal Minimal Assistance Transfer Goal Minimal Assistance,Cane Gait Goal Minimal Assistance,Cane,Steve Walker Gait Distance 50 Other Goals improve bed mobility, transfers, ambulation using LRAD ~ 150 ft SBA up/down 1 step using AD SBA Days to Meet Goals 10 Frequency of Treatment Frequency Of Treatment Once a Day Treatment Plan Physical Therapy Treatment Plan Bed Mobility Training,Transfer Training,Gait Training, Therapeutic Exercise,Balance Retraining,Discharge Planning, Hot or Cold Pack,Neuromuscular Re-ed,Coordination Retraining ,Manual Therapy Precautions Shoulder Precautions Sling Other Precautions falls; orthostatic hypotension Weight Bearing Status Allowed Weight Bearing Amount (enter % RLE: WBAT or #) (%) LUE: NWB Recommendations To Nursing Amount of Assist Needed 2 Person Assist Discharge Recommendations PT Discharge Recommendations SNF Rehab Transportation Needs at Discharge Wheelchair/Cabulance
[2024-04-16] MEDS: ASCORBIC ACID 500 MG TABLET 1000 MG PO ×2 (12:03→16:49)
--- NOTE | 2024-04-16 12:09 | OT.IP.EVAL ---
Past Medical History (Last Reviewed 04/16/24 @ 07:53 by Chris Bass MD) Abdominal discomfort Allergic rhinitis Back pain Carpal tunnel syndrome (~1994) Cataracts, bilateral (~2019) Chicken pox Chronic back pain (~1970) Chronic low back pain Depression (~1996) Dyslipidemia Elevated LDL cholesterol level GI bleed Hypothyroidism (~2007) Insomnia Mumps (~1964) Osteopenia Other low back pain Pneumonia Sinusitis Surgical History (Last Reviewed 04/16/24 @ 07:53 by Chris Bass MD) Anesthesia Cat bite of finger (~2013) History of gastrointestinal surgery (~1975) History of nasal surgery (~2014) History of tonsillectomy (~1975) Occupational Therapy Inpatient Evaluation/Re-Eval M1 PT/OT-IP Prior Functional Status Start: 04/16/24 12:21 Freq: NEEDED Status: Active Protocol: Document 04/16/24 12:56 [facility] (Rec: 04/16/24 13:54 [facility] [id number]) Medical Review Prior Functional Status Medical History Reviewed Yes Communication able to make needs known Mobility and Gait pt stated that she was independent with all mobilities and ambulation without AD Activities of Daily Living and IADL's Independent with all her needs . Social History Household Members none Living Arrangements House Number of Floors (Floors) One Floor Number of Stairs To Enter/Railing? 1 step to enter Home Environment Standard Height Toilet Home Equipment Straight Cane M2 OT-IP Current Condition Start: 04/16/24 12:55 Freq: Status: Active Protocol: Document 04/16/24 12:56 [facility] (Rec: 04/16/24 13:40 [facility] [id number]) Occupational Therapy Current Condition Current Condition Evaluation Date 04/16/24 Treatment Diagnosis GLF mildly displaced right superior fracture, left proximal humerus fracture Diagnosis Onset Date 04/15/24 Post Operative Precautions Shoulder Precautions Sling Weight Bearing Status Weight Bearing Status Non-Weight Bearing Allowed Weight Bearing Amount (enter % NWB to LUE or #) (%) WBAT as tolerated per hospitalist M3 OT- IP Subjective and Pain Start: 04/16/24 12:55 Freq: Status: Active Protocol: Document 04/16/24 12:56 [facility] (Rec: 04/16/24 13:40 [facility] [id number]) OT- Subjective Occupational Therapy Visit Type Type Initial Evaluation Visit Start Time 11:20 Visit Stop Time 12:09 Occupational Therapy Visit Comments Patient Comments Pt agreed to get up and try to use the BSC. Patient/Caregiver Goals TO get better and open to going to skilled rehab if needed. OT Pain Assessment Pain When Pain Assessed During Mobility Pain Present Pain Present Pain Reported M4 OT- IP ADL's Start: 04/16/24 12:55 Freq: Status: Active Protocol: Document 04/16/24 12:56 [facility] (Rec: 04/16/24 13:40 [facility] [id number]) OT AKY-Qyye-Gmyecxf General Evaluation Self-Feeding Ability Standby Assistance Areas Needing Assistance Cutting Food,Opening Containers Comments OT Self-Feeding Comments Set-up assist. OT ADL-Grooming Comments OT Grooming Comments Not performed, will need at least set-up assist. OT ADL-Oral Care Comments Oral Care Comments NOt performed. OT ADL-Dressing General Eval Lower Body Dressing Ability Maximum Assistance,Total Assistance Areas Needing Assistance Retrieving/Set-up of Clothing, Underpants/Brief,Socks Comments OT Dressing Comments Assist for all brief management, socks and completeness for hygiene needs . OT ADL-Toileting General Evaluation Toileting Ability Maximum Assistance Areas Needing Assistance Manage Clothing,Perform Perineal Hygiene OT ADL-Bathing Comments OT Bathing Comments Sponge bath more appropriate at this time. M5 OT- IP IADL's Start: 04/16/24 12:55 Freq: Status: Active Protocol: Document 04/16/24 12:56 [facility] (Rec: 04/16/24 13:40 [facility] [id number]) OT-Instrumental Activities of Daily Living Home Safety Awareness Awareness of Need for Assistance at Home Good Awareness Home Safety Comments Pt aware after eval that she will not be able to care for herself and will need assist at this time. Medication Management Medication Management Comments Pt states did her own. Money Management Money Management Comments Pt states did her own. Meal Preparation Meal Preparation Comments Pt will need assist. School Bus Aide School Bus Aide Comments Pt will need assist. M6 OT- IP Functional Cognition Start: 04/16/24 12:55 Freq: Status: Active Protocol: Document 04/16/24 12:56 [facility] (Rec: 04/16/24 13:40 [facility] [id number]) Cognitive Factors Limiting Selfcare Function Cognitive Ability Level of Alertness Alert Patient Orientation Name,Age,Birthday,Month,Date, Year,Day of Week,Place, Situation Attention Span Ability Capable of Focused Attention, Capable of Sustained Attention Ability to Follow Commands Able to Follow One Step Commands Cognitive Comments Cognitive Assessment Comments Pt able to follow commands for ADL and mobility needs. Pt appears intact and to continue to assess. OT- Vision and Hearing OT- Hearing Assessment OT- Hearing Assessment WFL OT- Vision Assessment Vision Assessment Comments Pt able to read the clock. M7 OT- IP Mobility and Balance Start: 04/16/24 12:55 Freq: Status: Active Protocol: Document 04/16/24 12:56 [facility] (Rec: 04/16/24 13:54 [facility] [id number]) OT- Bed Mobility Assessment Supine to Sit Supine to Sit Assist Maximum Assistance,1 Person Assistance,Head of Bed Elevated,Bedrails Scooting Scooting to Edge of Bed Maximum Assistance,1 Person Assistance OT-Transfer Assessment Sit to and From Stand Sit to and from Stand Maximum Assistance,1 Person Assistance,2 Person Assistance Transfers Transfer Ability Maximum Assistance,1 Person Assistance,2 Person Assistance Technique Transfer Destination Bed,Bedside Commode,Chair Transfer Technique Stand Step Pivot Devices Transfer Assistive Devices Gait Belt,Steve Walker Comments Mobility Comments MAX XA 1 to go to the edge of the bed. MAX AX 1-2 to stand to the steve walker and transfer to the BSC and then recliner. Pt did have a drop in BP and was orthostatic, nursing notified. OT- Balance Assessment Sitting Balance and Reactions Static Sitting Balance Ability Good Dynamic Sitting Balance Ability Good Standing Balance and Reactions Static Standing Balance Ability Poor Dynamic Standing Balance Ability Poor M8 OT- IP Objective Assessments Start: 04/16/24 12:55 Freq: Status: Active Protocol: Document 04/16/24 12:56 [facility] (Rec: 04/16/24 13:54 [facility] [id number]) OT Gross Range of Motion Upper Extremity Range of Motion Assessment Left Impaired OT Strength Upper Extremity Strength Assessment Left Impaired M9 OT- IP Assessment and Plan Start: 04/16/24 12:55 Freq: Status: Active Protocol: Document 04/16/24 12:56 [facility] (Rec: 04/16/24 13:54 [facility] [id number]) OT Summary Assessment and Plan Potential Rehabilitation Potential Good Analytic Complexity at Evaluation Moderate Summary OT Impairments Pain,Strength,Balance, Functional Mobility,Self- Feeding,Grooming,Dressing, Toileting,Bathing,Toilet Transfers,Shower Transfers, Activity Tolerance Progress Towards Goals Slow Progress due to Pain,Slow Progress due to Medical Issues,Slow Progress due to Activity Tolerance Assessment Summary Pt MOD complexity and main barriers are pain, step, and now will need assist for all needs of ADl and mobility needs due to recent fall and now NWB to LLUE. Pt will greatly benefit from skilled rehab at this time. Goals Self-Feeding Goal Independent Grooming Goal Independent Dressing Goal Minimal Assistance Toileting Goal Standby Assistance Bathing Goal Minimal Assistance Toilet Transfer Goal Standby Assistance Shower Transfer Goal Minimal Assistance Days to Meet Goals 20 Frequency of Treatment Other frequency 5x/wk Treatment Plan Other Treatment Recommendations and Next Transfer with hemiwalker to Treatment Focus BSC with MODA x 1. Discharge Recommendations OT Discharge Recommendations SNF Rehab Transportation Needs at Discharge Wheelchair/Cabulance
--- NOTE | 2024-04-16 14:34 | CM.DANOTE ---
Initial DCP Assessment Visit Note Reviewed EMR and team rounds for status updates, met with pt at bedside to introduce self and role. Pt was found to be resting in the recliner, alert/oriented, and able to discuss her concerns and preferences for SNF rehab facilities. Pt resides alone in her own home independently at baseline. She has a local dtr and son who are supportive and involved. Pt's preference is for [facility], will send the referral and clinicals and monitor for acceptance. Due to [employer] insurance, she will need an auth prior to admission. Payor: [employer] Adv PCP: Moody Joel Pt is a 73 year-old F who was out hiking with her grandchildren when she slipped and fell on her R-hip, resulting in a fracture. Ortho/Dr. Lugo was consulted for possible surgery, however he felt that no surgery was indicated, and to admit her with the plan of pain control and PT. Unfortunately, she fell again in her hospital room, resulting in a L-arm fracture. DCP will continue to follow and assist with the SNF rehab transition, as well as any further evolving needs prior to her discharge. Discharge Planning/Care Management Advanced directive, confirm from FAMILY Start: 04/15/24 21:30 Freq: Q24H Status: Active Protocol: Document 04/15/24 21:30 BR (Rec: 04/16/24 00:30 BR [id number]) Advance Directive, confirm on record Time 22:15 Person contacted pt/daughter Copy received No CM Discharge Assessment Start: 04/16/24 14:31 Freq: Status: Active Protocol: Document 04/16/24 14:31 DPL (Rec: 04/16/24 14:34 [facility]PL [id number]) Discharge Planning Assessment Assigned Career Services Manager BERTHA Baker Advance Directives? Yes Advance Directives on File No History Provided By Patient,Medical Record Has Patient been admitted in last 30 No days? Prior Living Arrangements House Household Members none Type of transporation used prior to Drives own vehicle admit Independent with ADL's Yes Is patient alert and oriented? Yes Caregiver for Another No Comment N/A Patient/Family Preference [facility] Facility Barriers to Discharge No Referrals Initiated [facility] If patient plan is SNF: Has PASSR been No completed? Inpatient Status as of 04/15/24 Has Agency SNF been contacted No Comment Pending Whiteboard Updated in Patient Room with Yes name and ext. # of Career Services Manager Review Status In Process Please Provide Date Initial DC 04/16/24 Assessment Was Performed
[2024-04-16] MEDS: ACETAMINOPHEN 325 MG TABLET 650 MG PO (16:48)
[2024-04-16] MEDS: MONTELUKAST 10 MG TABLET PO (16:48)
[2024-04-16] MEDS: SODIUM CHLORIDE 0.9% 1,000 ML 100 ML IV ×4 (16:49→22:34)
[2024-04-16] MEDS: IBUPROFEN 600 MG TABLET PO ×2 (18:10→23:20)
[2024-04-16] MEDS: GABAPENTIN 300 MG CAPSULE 900 MG PO (18:11)
[2024-04-16] MEDS: MELATONIN 3 MG TABLET 9 MG PO (21:47)
[2024-04-16] MEDS: DOCUSATE 100 MG CAPSULE 200 MG PO (23:20)
[2024-04-16] MEDS: polyethylene glycoL 3350 17 GM POWD.PACK PO (23:26)
[2024-04-17] VITALS (9 sets, daily range): BP systolic 112–136; BP diastolic 47–75; PULSE 77–96; RESP 15–20; TEMP 36.6–37.8; O2SAT 96–99
[2024-04-17] MEDS: TRAZODONE 50 MG TABLET 150 MG PO ×2 (01:13→22:03)
[2024-04-17] MEDS: THYROID, PORK 30 MG TABLET 60 MG PO (01:13)
[2024-04-17] MEDS: ASCORBIC ACID 500 MG TABLET 1000 MG PO ×2 (06:01→18:30)
[2024-04-17] MEDS: HYDROMORPHONE 0.5 MG INJ IV (06:01)
[2024-04-17] MEDS: PANTOPRAZOLE DR 20 MG TABLET PO (06:10)
--- NOTE | 2024-04-17 07:21 | PM.PN.1 ---
Subjective Subjective Interval history: Left shoulder is in a sling, pain is improving. Pelvis with minimal pain. She denies feeling lightheaded this morning. She was orthostatic yesterday and received IV fluids. Exam Vital Signs (past 8 hours): - 04/17/24 00:13 04/17/24 04:00 Temperature 98.6 F 98.5 F Pulse Rate 80 84 Respiratory Rate 18 15 Blood Pressure 131/65 114/52 L Pulse Oximetry 96 98 Oxygen Flow Rate 0 0 Oxygen Delivery Method Room Air Oxygen Flow Rate 0 Narrative Exam Narrative: NAD, alert and oriented. Fluent speech. Lungs are clear, normal rate and effort. Heart is regular, no murmur gallop or rub. Abdomen is soft, non distended. Extremities are free of edema. Left arm in sling with good radial pulse. Objective Labs 04/17/24 08:25 Labs: Laboratory Results - last 24 hr 04/16/24 08:41 Sodium 135 L Potassium 4.2 Chloride 105 Carbon Dioxide 25 BUN 11 Creatinine 0.58 Estimated GFR > 60 BUN/Creatinine Ratio 19.0 Glucose 160 H Calcium 7.9 L Magnesium 2.0 Total Bilirubin 0.5 AST 29 ALT 18 Alkaline Phosphatase 49 Total Protein 5.7 L Albumin 3.4 L Globulin 2.3 Albumin/Globulin Ratio 1.5 PFSH Medical History Abdominal discomfort Other low back pain Osteopenia Back pain Pneumonia GI bleed Dyslipidemia Allergic rhinitis Elevated LDL cholesterol level Chronic low back pain Insomnia Sinusitis Depression (~1996) Chronic back pain (~1970) Carpal tunnel syndrome (~1994) Mumps (~1964) Chicken pox Cataracts, bilateral (~2019) Hypothyroidism (~2007) Surgical History Anesthesia History of gastrointestinal surgery (~1975) History of nasal surgery (~2014) History of tonsillectomy (~1975) Cat bite of finger (~2013) Family History Father Cancer Diabetes mellitus History of heart disease History of heart bypass surgery Mother History of heart disease Hyperlipidemia Hypertension Sister Diabetes mellitus Social History household members: none Smoking Status: Never smoker alcohol intake: never Assessment & Plan Assessment & Plan narrative: 1. Mildly displaced right superior ramus fracture after mechanical fall. Present on admission and active. -No surgery required. -Pain control as needed -PT and OT evaluation -weight bear as tolerated 2. Left proximal humerus fracture. Mildly displaced right superior ramus fracture after mechanical fall. -left arm sling. -discharge to [facility] for rehab. 3. Hypothyroidism. Present on admission and active. -Restart levothyroxine. 4. Chronic back pain. Present on admission and active. -Restart gabapentin and bupropion. 5. Osteoporosis. Present on admission and active. -Restart vitamin D and calcium supplement. 6. GERD. Present on admission and active. -Restart omeprazole. 7. Migraine. Present on admission and active. -Restart sumatriptan as needed. 8. Insomnia. Present on admission and active. -Restart trazodone at bedtime PLAN: -ongoing physical and occupational therapy evaluation. -pain control efforts. -anticipate discharge to nursing home facility. Waiting for off from [facility] nursing [facility]. If this is delay this may easily dragged into Sunday morning due to a delay on the authorization process. JJ/dispo: longterm facility 0-1 days. Time-Based Coding :: 20 min spent with patient and on the chart (including review of chart, obtaining history, exam, reviewing outside data, placing orders, documenting exam and treatment plan, and counseling patient) on 04/17. Quality VTE Deep Vein Thrombosis/Pulmonary Embolism Present on Admission: No
[2024-04-17] MEDS: FLUTICASONE 120 SPRAY/16 GM SPRAY.SUSP NASAL (08:26)
[2024-04-17] MEDS: CALCIUM CARBONATE 500 MG TAB 1000 MG PO (08:26)
[2024-04-17] MEDS: SODIUM CHLORIDE 0.9% 1,000 ML 100 ML IV (08:26)
[2024-04-17] MEDS: polyethylene glycoL 3350 17 GM POWD.PACK PO (08:26)
[2024-04-17] MEDS: OXYCODONE IR 5 MG TABLET PO ×4 (08:27→21:12)
[2024-04-17] MEDS: CHOLECALCIFEROL (VITAMIN D3) 1,000 UNIT TABLET 1000 UNIT PO (08:27)
[2024-04-17] MEDS: DOCUSATE 100 MG CAPSULE 200 MG PO ×2 (08:27→20:22)
[2024-04-17] MEDS: guaiFENesin ER 600 MG TAB PO ×2 (08:27→20:22)
[2024-04-17] MEDS: MULTIVITAMIN 1 TABLET 1 TAB PO (08:27)
[2024-04-17] MEDS: MAGNESIUM OXIDE 400 MG TABLET PO (08:28)
[2024-04-17 08:57] LABS: Alanine Aminotransferase 18 IU/L (<35); Albumin 3.4 g/dL (3.5-5.0); Albumin Globulin Ratio 1.4 (1.0-2.8); Alkaline Phosphatase 56 U/L (38-126); Aspartate Aminotransferase 27 IU/L (14-36); BUN Creatinine Ratio 19.3 (6-22); Bilirubin Total 0.4 mg/dL (0.2-1.3); Blood Urea Nitrogen 11 mg/dL (7-17); Carbon Dioxide 26 mmol/L (22-32); Chloride 107 mmol/L (98-107); Estimated Glomerular Filt Rate > 60 mL/min (>60); Globulin 2.4 g/dL (1.7-4.1); Glucose 101 mg/dL (80-110); HEMOLYSIS 15 (0-50); Magnesium 2.1 mg/dL (1.6-2.3); Sodium 138 mmol/L (137-145); Total Protein 5.8 g/dL (6.3-8.2)
--- NOTE | 2024-04-17 10:45 | DI.CT.S_ITS ---
PROCEDURE: CT HEAD/BRAIN WO CON INDICATIONS: dizziness TECHNIQUE: Noncontrast 4.5 mm thick angled axial sections acquired from the foramen magnum to the vertex, with coronal and sagittal reformats. For radiation dose reduction, the following was used: automated exposure control, adjustment of mA and/or kV according to patient size. COMPARISON: None. FINDINGS: Image quality: Diagnostic. CSF spaces: Basal cisterns are patent. No extra-axial fluid collections. Ventricles are normal in size and shape. Brain: No midline shift. No intracranial masses or hemorrhage. Seals-white matter interface is normal. Skull and face: Calvarium and visualized facial bones are intact, without suspicious lesions. There is a benign appearing lesion of the scalp in the left parietal region which measures approximately 1.5 x 0.5 cm, and has increased density, potentially representing a sebaceous cyst with proteinaceous debris. Reference coronal reformat image 38 of series 4. There is a 2nd of these lesions in the high right temporal region which measures 1.4 x 0.5 cm, and has similar imaging characteristics. Reference sagittal reformat image 13 of series 5. Sinuses: Visualized sinuses and mastoids are clear. IMPRESSION: 1. No acute intracranial pathology. 2. There are 2 focal scalp lesions, which are likely palpable. They are likely benign lesions, potentially representing sebaceous cysts with proteinaceous debris. Comment: Consider nonemergent ultrasound of the scalp for further evaluation of these lesions. Dictated by: Harley Ortega M.D. on 04/17/2024 at 11:39 Approved by: Harley Ortega M.D. on 04/17/2024 at 11:42
--- NOTE | 2024-04-17 13:49 | CM.DPC ---
DCP Cont. Reviewed EMR and team rounds for status updates. Natty from [facility] called to confirm that they can accept pt on Sunday, they submitted the auth, which is anticipated to come in by tomorrow am. She is setting up transportation for the afternoon, and will call us to confirm the time. Updated pt on plan.
--- NOTE | 2024-04-17 14:38 | PT.IPTN ---
Current Diagnoses Unspecified fracture of right pubis, initial encounter for closed fracture (04/15/24) Physical Therapy Treatment Note M2 PT-IP Current Condition Start: 04/16/24 12:21 Freq: NEEDED Status: Active Protocol: Document 04/16/24 11:15 AB (Rec: 04/16/24 12:42 AB [id number]) Physical Therapy Current Condition Current Condition Evaluation Date 04/16/24 Treatment Diagnosis GLF; R superior ramus fx; L prox humeral fx; difficulty in walking Onset Date 04/15/24 M3 PT-IP Subjective Start: 04/16/24 12:21 Freq: NEEDED Status: Active Protocol: Document 04/17/24 14:00 MB (Rec: 04/17/24 14:38 MB [id number]) Subjective Physical Therapy Visit Type Type Treatment Note Visit Start Time 14:00 Visit Stop Time 14:25 Notes L humerus in sling, NWB Physical Therapy Visit Comments Patient Comments Pt c/o high pain in left humerus when checked on twice, PT returns with nsg and OT, medicine given. Therapy Pain Assessment Pain When Pain Assessed During Mobility Pain Present Pain Present Pain Reported Location Left Shoulder Intensity 10 Scale Used Numeric (0 - 10) Right hip/groin Intensity 10 Scale Used Numeric (0 - 10) M4 PT-IP Mobility and Gait Start: 04/16/24 12:21 Freq: NEEDED Status: Active Protocol: Document 04/17/24 14:00 MB (Rec: 04/17/24 14:38 MB [id number]) PT-Bed Mobility Assessment Supine to Sit Supine to Sit Minimal Assistance,1 Person Assistance,Head of Bed Elevated,Bedrails Scooting Scooting to Edge of Bed Moderate Assistance PT-Transfer Assessment Sit to and From Stand Sit to and from Stand Minimal Assistance,2 Person Assistance,Use of Upper Extremities Equipment Transfer Assistive Device Gait Belt,Steve Walker Transfers Transfer Destination Chair,Bedside Commode Transfer Ability Level of Assist Minimal Assistance,2 Person Assistance,Use of Upper Extremities Comments Mobility Comments Nursing and PT and OT assisting pt d/t LUE and right pelvic fractures, orthostasis , urination needs and pain medication needs. BP does not drop sit to stand but does drop once sitting in chair and pt reports light-headedness then. See OT note for vitals and nsg made aware. See OT note for assistance for urination on BSC, brief change . For PT: Balance requires hands on CGA at belt and right hemiwalker, cues to WB through right foot. Pt requires assistance to scoot hips forward on BSC and EOB before standing. Will try to encourage gait to BR as pt tolerates and BP stabilizes. Gait Assessment Gait Gait Assistance Required: Minimum Assistance,1 Person Assist Distance (Feet) 1 Able to Maintain Weight Bearing Status Yes During Gait Assistive Devices Assistive Device Steve Walker Gait Deviations General Gait Pattern Antalgic,Decreased Stride Length,Decreased Feet Clearance,Flexed Trunk,Lateral Trunk Lean,Step-to Gait,Wide Based Gait Factors Limiting Gait Function Factors Limiting Gait Function Decreased Strength,Difficulty Following Directions, Incoordination,Limited Range of Motion,Pain,Poor Balance, Poor Safety Awareness Comments Gait Comments Pt tends to pickling operator right foot to step and then try to scoot left foot in anti-skid socks, cues for stepping, backing up PT-Balance Assessment Sitting Balance and Reactions Static Sitting Balance Ability Good Dynamic Sitting Balance Ability Good Standing Balance and Reactions Static Standing Balance Ability Fair Dynamic Standing Balance Ability Poor Device Used Hemiwalker right hand M5 PT-IP Objective Assessments Start: 04/16/24 12:21 Freq: NEEDED Status: Active Protocol: Document 04/16/24 11:15 AB (Rec: 04/16/24 12:42 AB [id number]) Orientation Orientation/Cognition Level of Alertness Alert Orientation Name,Situation Language Function Ability No Deficits Noted Safety Awareness Decreased Safety Awareness Memory Description No Deficits Noted Gross Range of Motion Lower Extremity ROM Assessment Within Functional Limits Strength Lower Extremity Strength Assessment Right Impaired Hip pain limiting Sensation Assessment Sensation Gross Sensation WNL Muscle Tone Muscle Tone WNL Yes M6 PT-IP Treatment Start: 04/16/24 12:21 Freq: NEEDED Status: Active Protocol: Document 04/17/24 14:00 MB (Rec: 04/17/24 14:38 MB [id number]) Physical Therapy Treatment Other Treatments Other Treatment Performed Assistance to toilet, checking orthostatics, see OT note, two person assistance for safety and cues M7 PT-IP Assessment and Plan Start: 04/16/24 12:21 Freq: NEEDED Status: Active Protocol: Document 04/17/24 14:00 MB (Rec: 04/17/24 14:38 MB [id number]) PT Summary Assessment and Plan Potential Rehabilitation Potential Fair Status of Condition at Evaluation Unstable Summary Impairments Pain,ROM,Strength,Balance, Coordination,Sensation,Bed Mobility,Transfers,Gait, Activity Tolerance Assessment Summary Pt con't with BP drop after standing and with sitting in the chair. See OT note for numbers. Pt appears to mobilize better in bed and with short stepping today and she requires a lot of encouragement to initiate movement and progress mobility distance. Goals Bed Mobility Goal Standby Assistance Transfer Goal Standby Assistance,Cane Gait Goal Standby Assistance,Cane,Steve Walker Gait Distance 50 Other Goals Pt will ascend and descend step with LRAD and no more than SBA. Days to Meet Goals 5 Frequency of Treatment Frequency Of Treatment Once a Day Treatment Plan Physical Therapy Treatment Plan Bed Mobility Training,Transfer Training,Gait Training, Therapeutic Exercise,Balance Retraining,Discharge Planning, Hot or Cold Pack,Neuromuscular Re-ed,Coordination Retraining ,Manual Therapy Other Recommendations and Next Treatment Progress gait and try to get Focus pt to ambulate to BR if BP stable and pain manageable Precautions Other Precautions Sling left arm, fall risk, orthostatic Weight Bearing Status Allowed Weight Bearing Amount (enter % RLE: WBAT or #) (%) LUE: NWB Recommendations To Nursing Amount of Assist Needed 2 Person Assist Discharge Recommendations PT Discharge Recommendations SNF Rehab Transportation Needs at Discharge Wheelchair/Cabulance
--- NOTE | 2024-04-17 14:44 | OT.IP.TRT ---
Current Diagnoses Unspecified fracture of right pubis, initial encounter for closed fracture (04/15/24) Occupational Therapy Treatment Note M2 OT-IP Current Condition Start: 04/16/24 12:55 Freq: Status: Active Protocol: Document 04/16/24 12:56 [facility] (Rec: 04/16/24 13:40 [facility] [id number]) Occupational Therapy Current Condition Current Condition Evaluation Date 04/16/24 Treatment Diagnosis GLF mildly displaced right superior fracture, left proximal humerus fractur Diagnosis Onset Date 04/15/24 Post Operative Precautions Shoulder Precautions Sling Weight Bearing Status Weight Bearing Status Non-Weight Bearing Allowed Weight Bearing Amount (enter % NWB to LUE or #) (%) WBAT as tolerated per hospitalist M3 OT- IP Subjective and Pain Start: 04/16/24 12:55 Freq: Status: Active Protocol: Document 04/17/24 14:47 [facility] (Rec: 04/17/24 15:00 [facility] [id number]) OT- Subjective Occupational Therapy Visit Type Type Treatment Note Visit Start Time 14:04 Visit Stop Time 14:44 Occupational Therapy Visit Comments Patient Comments Pt wanting to use the BSC. Patient/Caregiver Goals TO get better and open to going to skilled rehab if needed. OT Pain Assessment Pain When Pain Assessed During Mobility Pain Present Pain Present Pain Reported Location Left Shoulder Intensity 10 Scale Used Numeric (0 - 10) M4 OT- IP ADL's Start: 04/16/24 12:55 Freq: Status: Active Protocol: Document 04/17/24 14:47 [facility] (Rec: 04/17/24 15:00 [facility] [id number]) OT [id number] Comments OT Self-Feeding Comments Set-up assist. OT ADL-Grooming Comments OT Grooming Comments Not performed, will need at least set-up assist. OT ADL-Oral Care Comments Oral Care Comments NOt performed. OT ADL-Dressing General Eval Lower Body Dressing Ability Maximum Assistance Comments OT Dressing Comments Pt able to lean forwards to get her LLE into the brief. Pt educated to herman her RLE first and take out last. Pt will benefit from use of LB dressing equipment or assist. OT ADL-Toileting General Evaluation Toileting Ability Maximum Assistance Areas Needing Assistance Manage Clothing Comments OT Toileting Comments Pt able to wipe from the front with wipes. Pt needing assist for the brief up over her RLE and hips. OT ADL-Bathing Comments OT Bathing Comments Sponge bath more appropriate at this time. M5 OT- IP IADL's Start: 04/16/24 12:55 Freq: Status: Active Protocol: Document 04/16/24 12:56 [facility] (Rec: 04/16/24 13:40 [facility] [id number]) OT-Instrumental Activities of Daily Living Home Safety Awareness Awareness of Need for Assistance at Home Good Awareness Home Safety Comments Pt aware after eval that she will not be able to care fore herself and will need assist. Medication Management Medication Management Comments Pt states did her own. Money Management Money Management Comments Pt states did her own. Meal Preparation Meal Preparation Comments Pt will need assist. Media Services Director Media Services Director Comments Pt will need assist. M6 OT- IP Functional Cognition Start: 04/16/24 12:55 Freq: Status: Active Protocol: Document 04/17/24 14:47 [facility] (Rec: 04/17/24 15:00 [facility] [id number]) Cognitive Factors Limiting Selfcare Function Cognitive Comments Cognitive Assessment Comments Pt still feels her pain is at 9/10 at rest and 10/10 during mobility needs. Educated pt of trying to understand her pain and realize that she will have pain and try to best understand that it will hurt especially during transitions and try not to anticipate more pain. Able to talk to pt and her daughter regarding what to expect for skilled rehab. M7 OT- IP Mobility and Balance Start: 04/16/24 12:55 Freq: Status: Active Protocol: Document 04/17/24 14:47 [facility] (Rec: 04/17/24 15:00 [facility] [id number]) OT- Bed Mobility Assessment Supine to Sit Supine to Sit Assist Minimal Assistance Scooting Scooting to Edge of Bed Moderate Assistance OT-Transfer Assessment Sit to and From Stand Sit to and from Stand Minimal Assistance,2 Person Assistance Transfers Transfer Ability Minimal Assistance,2 Person Assistance Technique Transfer Destination Bed,Bedside Commode,Chair Transfer Technique Stand Step Pivot Devices Transfer Assistive Devices Gait Belt,Steve Walker Comments Mobility Comments MALAIKA to pull on the arm of therapist to sit and MODA to help scoot her hips forwards. MALAIKA x2 with hemiwalker for transfer. BP sitting 160-170/ 60 while sitting and standing and after transfer to the recliner dropped to 120/60, nursse and hospitalist notified. OT- Balance Assessment Sitting Balance and Reactions Static Sitting Balance Ability Good Dynamic Sitting Balance Ability Good Standing Balance and Reactions Static Standing Balance Ability Fair Dynamic Standing Balance Ability Poor M8 OT- IP Objective Assessments Start: 04/16/24 12:55 Freq: Status: Active Protocol: Document 04/16/24 12:56 [facility] (Rec: 04/16/24 13:54 [facility] [id number]) OT Gross Range of Motion Upper Extremity Range of Motion Assessment Left Impaired OT Strength Upper Extremity Strength Assessment Left Impaired M9 OT- IP Assessment and Plan Start: 04/16/24 12:55 Freq: Status: Active Protocol: Document 04/17/24 14:47 [facility] (Rec: 04/17/24 15:00 [facility] [id number]) OT Summary Assessment and Plan Potential Rehabilitation Potential Good Analytic Complexity at Evaluation Moderate Summary OT Impairments Pain,Strength,Balance, Functional Mobility,Self- Feeding,Grooming,Dressing, Toileting,Bathing,Toilet Transfers,Shower Transfers, Activity Tolerance Progress Towards Goals Slow Progress due to Pain,Slow Progress due to Medical Issues,Slow Progress due to Activity Tolerance Assessment Summary Pt still having lots for pain with limited her activity tolerance at this time. Pt was able to participate in toileting needs. Pt to go to skilled rehab when medically stable. Goals Self-Feeding Goal Independent Grooming Goal Independent Dressing Goal Minimal Assistance Toileting Goal Standby Assistance Bathing Goal Minimal Assistance Toilet Transfer Goal Standby Assistance Shower Transfer Goal Minimal Assistance Days to Meet Goals 19 Frequency of Treatment Other frequency 5x/wk Discharge Recommendations OT Discharge Recommendations SNF Rehab Transportation Needs at Discharge Wheelchair/Cabulance
[2024-04-17] MEDS: FLUDROCORTISONE 0.1 MG TABLET PO (15:44)
[2024-04-17] MEDS: CYCLOBENZAPRINE 10 MG TABLET 5 MG PO (15:45)
[2024-04-17] MEDS: NAPROXEN 250 MG TABLET PO (15:52)
[2024-04-17] MEDS: GABAPENTIN 300 MG CAPSULE 900 MG PO (18:30)
[2024-04-17] MEDS: MONTELUKAST 10 MG TABLET PO (18:30)
[2024-04-17] MEDS: IBUPROFEN 600 MG TABLET PO (20:36)
[2024-04-18] MEDS: ASCORBIC ACID 500 MG TABLET 1000 MG PO ×3 (01:23→12:33)
[2024-04-18] MEDS: PANTOPRAZOLE DR 20 MG TABLET PO (05:52)
--- NOTE | 2024-04-18 06:43 | PC.NURSE ---
Notified pharmacy @ 06:30 regarding meds. Thyroid med not available at scheduled time of 01:00 (schedule time per patient request). Vitamin C not available. Pharmacist to send up.
[2024-04-18] MEDS: THYROID, PORK 30 MG TABLET 60 MG PO (06:48)
--- NOTE | 2024-04-18 07:14 | P.PN_ITS ---
Subjective Subjective Interval history: Yesterday: Left shoulder is in a sling, pain is improving. Pelvis with minimal pain. She denies feeling lightheaded this morning. She was orthostatic yesterday and received IV fluids. Interval history: [] Exam Vital Signs (past 8 hours): - 04/17/24 23:43 Temperature 98.8 F Pulse Rate 96 H Respiratory Rate 18 Blood Pressure 120/55 L Pulse Oximetry 97 Oxygen Flow Rate 0 Oxygen Delivery Method Room Air Oxygen Flow Rate 0 Objective Labs 04/17/24 08:25 Labs: Laboratory Results - last 24 hr 04/17/24 08:25 Sodium 138 Potassium 4.0 Chloride 107 Carbon Dioxide 26 BUN 11 Creatinine 0.57 Estimated GFR > 60 BUN/Creatinine Ratio 19.3 Glucose 101 Calcium 8.0 L Magnesium 2.1 Total Bilirubin 0.4 AST 27 ALT 18 Alkaline Phosphatase 56 Total Protein 5.8 L Albumin 3.4 L Globulin 2.4 Albumin/Globulin Ratio 1.4 PFSH Medical History Abdominal discomfort Other low back pain Osteopenia Back pain Pneumonia GI bleed Dyslipidemia Allergic rhinitis Elevated LDL cholesterol level Chronic low back pain Insomnia Sinusitis Depression (~1996) Chronic back pain (~1970) Carpal tunnel syndrome (~1994) Mumps (~1964) Chicken pox Cataracts, bilateral (~2019) Hypothyroidism (~2007) Surgical History Anesthesia History of gastrointestinal surgery (~1975) History of nasal surgery (~2014) History of tonsillectomy (~1975) Cat bite of finger (~2013) Family History Father Cancer Diabetes mellitus History of heart disease History of heart bypass surgery Mother History of heart disease Hyperlipidemia Hypertension Sister Diabetes mellitus Social History household members: none Smoking Status: Never smoker alcohol intake: never Assessment & Plan Assessment & Plan narrative: 1. Mildly displaced right superior ramus fracture after mechanical fall. Present on admission and active. -No surgery required. -Pain control as needed -PT and OT evaluation -weight bear as tolerated 2. Left proximal humerus fracture. Mildly displaced right superior ramus fracture after mechanical fall. -left arm sling. -discharge to [facility] for rehab. 3. Hypothyroidism. Present on admission and active. -Restart levothyroxine. 4. Chronic back pain. Present on admission and active. -Restart gabapentin and bupropion. 5. Osteoporosis. Present on admission and active. -Restart vitamin D and calcium supplement. 6. GERD. Present on admission and active. -Restart omeprazole. 7. Migraine. Present on admission and active. -Restart sumatriptan as needed. 8. Insomnia. Present on admission and active. -Restart trazodone at bedtime PLAN: -ongoing physical and occupational therapy evaluation. -pain control efforts. -anticipate [facility] to [facility] facility. [facility]ing for off [facility]. If this is delay this may easily dragged into Sunday morning due to a delay on the authorization process. JJ/dispo: [facility] facility 0-1 days. Time-Based Coding :: [TOTAL MINUTES] spent with patient and on the chart (including review of chart, obtaining history, exam, reviewing outside data, placing orders, documenting exam and treatment plan, and counseling patient) on [DATE]. Quality VTE Deep Vein Thrombosis/Pulmonary Embolism Present on Admission: No
[2024-04-18 08:00] VITALS: BP 141/74; PULSE 72; RESP 17; TEMP 37.6; O2SAT 97
[2024-04-18] MEDS: FLUTICASONE 120 SPRAY/16 GM SPRAY.SUSP NASAL (08:34)
[2024-04-18] MEDS: guaiFENesin ER 600 MG TAB PO (08:35)
[2024-04-18] MEDS: FLUDROCORTISONE 0.1 MG TABLET PO (08:35)
[2024-04-18] MEDS: ENOXAPARIN 40 MG/0.4 ML SYRINGE SUBCUT (08:35)
[2024-04-18] MEDS: CYCLOBENZAPRINE 10 MG TABLET 5 MG PO (08:35)
[2024-04-18] MEDS: OXYCODONE IR 5 MG TABLET PO ×2 (08:36→12:32)
[2024-04-18] MEDS: MAGNESIUM OXIDE 400 MG TABLET PO (08:37)
[2024-04-18] MEDS: CALCIUM CARBONATE 500 MG TAB 1000 MG PO (08:37)
[2024-04-18] MEDS: polyethylene glycoL 3350 17 GM POWD.PACK PO (08:37)
[2024-04-18] MEDS: DOCUSATE 100 MG CAPSULE 200 MG PO (08:37)
[2024-04-18] MEDS: CHOLECALCIFEROL (VITAMIN D3) 1,000 UNIT TABLET 1000 UNIT PO (08:37)
[2024-04-18] MEDS: MULTIVITAMIN 1 TABLET 1 TAB PO (08:37)
[2024-04-18 08:44] LABS: Alanine Aminotransferase 15 IU/L (<35); Albumin 3.2 g/dL (3.5-5.0); Albumin Globulin Ratio 1.3 (1.0-2.8); Alkaline Phosphatase 49 U/L (38-126); Aspartate Aminotransferase 50 IU/L (14-36); BUN Creatinine Ratio 19.1 (6-22); Bilirubin Total 0.4 mg/dL (0.2-1.3); Blood Urea Nitrogen 13 mg/dL (7-17); Calcium 8.2 mg/dL (8.4-10.2); Carbon Dioxide 29 mmol/L (22-32); Chloride 106 mmol/L (98-107); Estimated Glomerular Filt Rate > 60 mL/min (>60); Globulin 2.4 g/dL (1.7-4.1); Glucose 94 mg/dL (80-110); HEMOLYSIS 31 (0-50); Potassium 4.7 mmol/L (3.4-5.1); Sodium 136 mmol/L (137-145); Total Protein 5.6 g/dL (6.3-8.2)
--- NOTE | 2024-04-18 10:48 | CM.DPC ---
DCP Continued Reviewed EMR and team rounds for pt?s medical status. Per Natty at [facility], pt's insurance has authorized SNF rebab and has transport scheduled for 1330. DCP spoke with pt at bedside, pt was found sitting in chair and was expressing anxiety about moving to another facility and being far from family. DCP utilized reflective listening to validate pt's emotions and modeled brief grounding techniques at bedside. DCP discussed discharge plans for 1330 with pt and pt verbalized understanding. PASRR completed and Provider signed for exempted hospital discharge (antidepressant rx). Plan: Pt to discharge to [facility] SNF at 1330. CM Team will continue to follow for coordination of discharge plans. DEYSI Sehll
--- NOTE | 2024-04-18 11:03 | P.DS_ITS ---
History of Present Illness History of Present Illness Date Patient Seen: 04/18/24 Time Patient Seen: 08:55 Date of Onset of Symptoms: 04/15/24 Chief complaint: fall, rt hip pain Narrative: 73 years old female with history of hypothyroidism, hyperlipidemia, depression, osteoporosis, GERD, migraine, insomnia, chronic back pain presented to the ER after sustaining mechanical fall earlier today. The patient was walking with her grandchildren when she missstepped on a tree root, tripped and fell on her right side. The patient was not able to stand up and walk after the fall due to pain and trouble bearing weight. She was complaining of severe right hip pain with movement. Denies any neurodeficits, loss of consciousness or head injury. Pelvic CT scan shows mildly displaced right superior ramus fracture. Orthopedic surgery was consulted and recommended no surgery but admission for physical therapy and pain control. Discharge Providers Provider Date of admission: 04/15/24 19:04 Discharge Date: 04/18/24 Primary care physician: MARVIN Shoemaker Consults: 04/15/24 19:04 Consult to Discharge Planning Routine Comment: Consult to Occupational Therapy Evaluate & Treat Comment: Physician Instructions: Evaluate and treat Consult to Physical Therapy Evaluate & Treat Comment: Physician Instructions: Evaluate and Treat Discharge provider: Niranjan Jones MD Summary Hospital Course Discharge Diagnosis: 1. Mildly displaced right superior ramus fracture after mechanical fall. Present on admission and active. -No surgery required. -Pain control as needed -PT and OT evaluation -weight bear as tolerated 2. Left proximal humerus fracture after mechanical fall. -occurred during a fall while in the hospital while walking to the bathroom on the first night of hospitalization -left arm sling. -discharge to SNF for rehab. 3. Hypothyroidism. Present on admission and active. -Continue levothyroxine. 4. Chronic back pain. Present on admission and active. -Continue gabapentin and bupropion. 5. Osteoporosis. Present on admission and active. -Continue vitamin D and calcium supplement. 6. GERD. Present on admission and active. -Continue omeprazole. 7. Migraine. Present on admission and active. -Continue sumatriptan as needed. 8. Insomnia. Present on admission and active. -Continue trazodone at bedtime 9. Orthostatic hypotension. Present on admission -Treated with Fluorinef in the hospital -Monitor and consider resuming in the SNF if continuing to be an issue 10. DVT Prophylaxis. -Lovenox 40mg SQ daily x 30 days Status at Discharge Cognitive/behavioral status at discharge: oriented Functional status at discharge: bed bound Overall status at discharge: patient is progressing back to baseline Time Spent with Patient Time spent: Greater than 30 minutes Exam Vital Signs (past 8 hours): - 04/18/24 08:00 Temperature 99.7 F H Pulse Rate 72 Respiratory Rate 17 Blood Pressure 141/74 H Pulse Oximetry 97 Oxygen Delivery Method Room Air Oxygen Flow Rate 0 Narrative Exam Narrative: NAD, alert and oriented. Fluent speech. Lungs are clear, normal rate and effort. Heart is regular, no murmur gallop or rub. Abdomen is soft, non distended. Extremities are free of edema. Left arm in sling with good radial pulse. Objective Labs 04/18/24 08:10 Labs: Laboratory Results - last 24 hr 04/18/24 08:10 Sodium 136 L Potassium 4.7 Chloride 106 Carbon Dioxide 29 BUN 13 Creatinine 0.68 Estimated GFR > 60 BUN/Creatinine Ratio 19.1 Glucose 94 Calcium 8.2 L Magnesium 2.0 Total Bilirubin 0.4 AST 50 H ALT 15 Alkaline Phosphatase 49 Total Protein 5.6 L Albumin 3.2 L Globulin 2.4 Albumin/Globulin Ratio 1.3 PFSH Medical History Abdominal discomfort Other low back pain Osteopenia Back pain Pneumonia GI bleed Dyslipidemia Allergic rhinitis Elevated LDL cholesterol level Chronic low back pain Insomnia Sinusitis Depression (~1996) Chronic back pain (~1970) Carpal tunnel syndrome (~1994) Mumps (~1964) Chicken pox Cataracts, bilateral (~2019) Hypothyroidism (~2007) Surgical History Anesthesia History of gastrointestinal surgery (~1975) History of nasal surgery (~2014) History of tonsillectomy (~1975) Cat bite of finger (~2013) Family History Father Cancer Diabetes mellitus History of heart disease History of heart bypass surgery Mother History of heart disease Hyperlipidemia Hypertension Sister Diabetes mellitus Social History household members: none Smoking Status: Never smoker alcohol intake: never Discharge Plan Discharge Plan Patient Disposition: SNF Transfer to: [facility] Discharge orders & Medications Prescriptions: New cyclobenzaprine 10 mg Tablet 5 mg PO Q8HR PRN (Reason: Spasms) Qty: 30 0RF polyethylene glycol 3350 17 gram Powder In Packet 17 gm PO DAILY Qty: 540 0RF oxycodone 5 mg Tablet 5 mg PO Q3H PRN (Reason: Pain, Moderate (4-6)) Qty: 120 0RF enoxaparin [Lovenox] 40 mg/0.4 mL Syringe 40 mg SUBCUT DAILY 30 Days Qty: 12 0RF acetaminophen 325 mg Tablet 650 mg PO QID PRN (Reason: Pain, Mild (1-3)) Qty: 120 0RF Continued pseudoephedrine HCl [Nasal Decongestant (pseudoeph)] 30 mg tablet 60 mg PO Q4-6H PRN (Reason: nasal congestion) Qty: 20 0RF Rx Instructions: DNExceed 4 doses/24h sumatriptan succinate 100 mg tablet 100 mg PO ONCE PRN (Reason: Pain (Scale Score 7-10)) Qty: 10 3RF Rx Instructions: may repeat once after at least 2 hrs; do not exceed 2 doses in 24 hrs docusate sodium [Colace] 100 mg capsule 100 mg PO BID Qty: 180 1RF ondansetron HCl 4 mg tablet 4 mg PO Q8H PRN (Reason: nausea and vomiting) Qty: 30 1RF Rx Instructions: PRN naproxen 250 mg tablet 250 mg PO BID PRN (Reason: pain) Qty: 90 1RF montelukast [Singulair] 10 mg tablet 10 mg PO QPM Qty: 90 3RF omeprazole 20 mg capsule,delayed release(DR/EC) 20 mg PO DAILY Qty: 90 3RF beclomethasone dipropionate 80 mcg/actuation HFA aerosol inhaler 2 inh intranasal DAILY Qty: 10.6 5RF Rx Instructions: administer into each nostril Repatha SureClick 140 mg/mL pen injector 140 mg SUBCUT Q2W gabapentin 300 mg capsule 900 mg PO BEDTIME Qty: 270 1RF azelastine 137 mcg (0.1 %) aerosol,spray 2 spray intranasal BID Qty: 90 1RF Rx Instructions: administer into each nostril twice daily thyroid (pork) [[place] Thyroid] 90 mg tablet 65 mg PO DAILY multivitamin [Daily Multi-Vitamin] Tablet 1 tab PO DAILY guaifenesin [Mucinex] 600 mg tablet extended release 12hr 600 mg PO BID fexofenadine [[place] Allergy] 180 mg tablet 180 mg PO DAILY Patient Comments: does not take if she takes Arlen-D Fish Oil 100-160-1,000 mg capsule 1,000 cap PO DAILY ascorbic acid (vitamin C) 1,000 mg capsule 1 g PO DAILY calcium carbonate [Calcium 500] 500 mg calcium (1,250 mg) tablet,chewable 1,000 mg PO DAILY Ultra CoQ10 75 mg capsule 150 mg PO DAILY Probiotic 5 billion cell capsule, sprinkle 1 cap PO DAILY magnesium oxide 500 mg capsule 500 mg PO BEDTIME cinnamon bark 500 mg capsule 2,000 mg PO DAILY fexofenadine-pseudoephedrine [[place]len-D 12 Hour] 60-120 mg tablet extended release 12 hr 1 tab PO Q12H PRN (Reason: allergy symptoms) Qty: 60 0RF Rx Instructions: Generic if available trazodone 150 mg tablet 150 mg PO BEDTIME PRN (Reason: sleep) Qty: 90 1RF Follow up/Referrals: Moody Maldonado ARNP [Primary Care Provider] - Diet/Activity/Treatments Diet: Low-sodium Visit Report/Discharge Packet Stand Alone Forms: Patient Portal/API Discharge Data Primary Care Provider: Moody Maldonado Quality VTE Deep Vein Thrombosis/Pulmonary Embolism Present on Admission: No MIPS - Admit I confirm the patient?s Advance Care Plan is present, Code status is documented, Surrogate decision maker is in patient?s record [If Yes, STOP here]: Yes MIPS - Meds 'Current medications' to include all prescriptions, [id number] products, herbals, cannabis/cannabidiol products, and vitamin/mineral/dietary (nutritional) supplements. I have utilized all available resources to obtain, update, or review the patient?s current medications. [If Yes, STOP here]: Yes MIPS - DC The patient has a history of heart transplant or Left Ventricular Assist Device (LVAD). If yes, STOP here.: No The patient has current or prior documentation of left ventricular ejection fraction (LVEF) less than or equal to 40%, or moderate or severely depressed left ventricular systolic function.: No A. The patient was prescribed or already taking an Angiotensin-Converting Enzyme (ANJU) Inhibitor, or Angiotensin Receptor Keyanna (ARB).: No B. The patient was prescribed or already taking a beta-keyanna. [If Yes to Both A & B, STOP here]: No Patient not prescribed/taking ANJU or ARB, no reason given.: No Patient not prescribed/taking beta-keyanna, no reason given.: No PROFEE Charge Codes Discharge inpatient/observation: [id number]
[2024-04-18] MEDS: NAPROXEN 250 MG TABLET PO (12:32)
== END 2024-04-18 13:05 | DRG 544 ==
LOC: ED 18:57 → AC 04-16 06:42
PROVIDERS: Admitting Provider Internal Medicine; Emergency Provider Student in an Organized Health Care Education/Training Program; Family Provider Registered Nurse Diabetes Educator; PCP Registered Nurse Diabetes Educator; Referring Provider Student in an Organized Health Care Education/Training Program; Visit Provider Internal Medicine
DX: M80.022A Age-related osteoporosis with current pathological fracture, left humerus, initial encounter for fracture (principal); M80.0AXA Age-related osteoporosis with current pathological fracture, other site, initial encounter for fracture; E03.9 Hypothyroidism, unspecified; M54.9 Dorsalgia, unspecified; G89.29 Other chronic pain; K21.9 Gastro-esophageal reflux disease without esophagitis; G43.909 Migraine, unspecified, not intractable, without status migrainosus; G47.00 Insomnia, unspecified; I95.1 Orthostatic hypotension; F32.A Depression, unspecified
CPT/HCPCS: 36415; 70450; 72192; 73020; 73502; 80053; 83735; 97163; 97166; 97530; 97535; 99284; 99285; J1170; J1650

== ENCOUNTER → 2024-11-07 14:12 | Outpatient (CLI) | payer OTHER, SELFPAY ==
--- NOTE | 2024-11-07 14:14 | DI.RAD.S_ITS ---
PROCEDURE: XR CHEST 2V INDICATIONS: chest wall pain right back TECHNIQUE: 2 views of the chest were acquired. COMPARISON: None. FINDINGS: Surgical changes and devices: None. Lungs and pleura: Lungs are clear. No pleural effusions or pneumothorax. Mediastinum: Mediastinal contours are normal. Heart size is normal. Large retrocardiac hiatal hernia. Bones and chest wall: No suspicious bony abnormalities. Soft tissues appear unremarkable. IMPRESSION: No acute cardiopulmonary abnormality is seen. Dictated by: Elisabeth Grover MD, PhD on 11/07/2024 at 16:33 Approved by: Elisabeth Grover MD, PhD on 11/07/2024 at 16:34
== END ==
LOC: RAD 14:14
PROVIDERS: Family Provider Registered Nurse Diabetes Educator; PCP Registered Nurse Diabetes Educator; Referring Provider Physician Assistant; Visit Provider Physician Assistant
DX: R07.89 Other chest pain (principal); K44.9 Diaphragmatic hernia without obstruction or gangrene
CPT/HCPCS: 71046

== ENCOUNTER → 2024-11-25 09:06 | Outpatient (CLI) | payer OTHER, SELFPAY ==
[2024-11-24 16:30] VITALS: BMI 22.9
[2024-11-25 10:28] LABS: Hematocrit 42.2 % (36-46); Hemoglobin 14.3 g/dL (12.0-16.0); Mean Corpuscular HGB Conc 33.9 % (30-36); Mean Corpuscular Volume 94.6 fL (80-100); Platelet Count 229 X10^3/uL (150-400); Red Blood Cell Count 4.47 X10^6/uL (4.0-5.2); Red Cell Distribution Width 14.9 % (11.6-14.8); White Blood Cell Count 3.8 X10^3/uL (4.5-11.0)
[2024-11-25 10:52] LABS: Alanine Aminotransferase 19 IU/L (<35); Albumin 4.8 g/dL (3.5-5.0); Albumin Globulin Ratio 1.8 (1.0-2.8); Alkaline Phosphatase 63 U/L (38-126); Aspartate Aminotransferase 26 IU/L (14-36); BUN Creatinine Ratio 11.6 (6-22); Bilirubin Total 0.4 mg/dL (0.2-1.3); Blood Urea Nitrogen 10 mg/dL (7-17); Calcium 9.9 mg/dL (8.4-10.2); Carbon Dioxide 30 mmol/L (22-32); Chloride 104 mmol/L (98-107); Cholesterol 215 mg/dL (140-199); Estimated Glomerular Filt Rate > 60 mL/min (>60); Globulin 2.6 g/dL (1.7-4.1); Glucose 90 mg/dL (80-110); HDL Cholesterol 83 mg/dL (40-60); HEMOLYSIS < 15 (0-50); LDL Cholesterol Calculated 109 mg/dL (<100); Potassium 4.5 mmol/L (3.4-5.1); Sodium 143 mmol/L (137-145); Total Protein 7.4 g/dL (6.3-8.2); Triglycerides 115 mg/dL (35-150)
[2024-11-25 11:42] LABS: Vitamin B12 899 pg/mL (239-931)
== END ==
PROVIDERS: Family Provider Registered Nurse Diabetes Educator; PCP Registered Nurse Diabetes Educator; Referring Provider Registered Nurse Diabetes Educator; Visit Provider Registered Nurse Diabetes Educator
DX: E78.5 Hyperlipidemia, unspecified (principal); Z51.81 Encounter for therapeutic drug level monitoring; R41.3 Other amnesia
CPT/HCPCS: 36415; 80053; 80061; 82607; 85027

== ENCOUNTER → 2025-01-15 14:36 | Outpatient (CLI) | payer OTHER, SELFPAY ==
[2024-11-24 16:30] VITALS: BMI 22.9
--- NOTE | 2025-01-15 14:39 | DI.CT.S_ITS ---
PROCEDURE: CT ABDOMEN PELVIS W CON INDICATIONS: abdominal pain, recent hx of SBO TECHNIQUE: After the administration of intravenous contrast, axial sections acquired from the lung bases to the pubic symphysis. Coronal and sagittal reformats were performed. For radiation dose reduction, the following was used: automated exposure control, adjustment of mA and/or kV according to patient size. COMPARISON: [facility], CT, CT ABDOMEN PELVIS WITH CONTRAST, 10/27/2024, 11:07. FINDINGS: Image quality: Diagnostic. Peritoneum: No pneumoperitoneum or ascites. Bones: No acute osseous abnormality. Chronic, healed right superior and inferior pubic ramus fractures. Lower Chest: Moderate type 4 paraesophageal hernia containing loops of transverse colon and the stomach (6/50; 2/1). Mural thickening of the stomach (2/8). Liver: Normal in size and contour. Subcentimeter right hepatic lobe hypodense lesion, too small to characterize, likely representing a simple cyst (2/22). Gallbladder: No stones or pericholecystic fluid. Biliary tree: No intrahepatic or extrahepatic biliary ductal dilatation. Pancreas: Within normal limits. Spleen: Normal in size and contour. Kidneys: No hydronephrosis or obstructive urolithiasis. Adrenals: No adrenal nodularity. Bladder: Normal in size and wall thickness. : No acute abnormality. Stomach: Please see the lower thorax section. Bowel: Normal in diameter without any bowel obstruction. Sigmoid colonic diverticulosis. Nonvisualization of the appendix without secondary signs of acute appendicitis. Oral contrast within the esophagus and small bowel. Lymph Nodes: No retroperitoneal, mesenteric, or inguinal lymphadenopathy. Vascular: No abdominal aortic aneurysm. The visualized arterial vasculature is patent. Soft Tissues: Prior midline laparotomy. IMPRESSION: 1. No CT evidence of bowel obstruction. 2. Moderate type 4 paraesophageal hernia with mural thickening of the stomach, which may be secondary to under distention or gastritis. 3. No other acute CT abnormality of the abdomen/pelvis. Dictated by: Mansoor Mariee M.D. on 01/15/2025 at 17:01 Approved by: Mansoor Mariee M.D. on 01/15/2025 at 17:09
[2025-01-15 15:43] LABS: Alanine Aminotransferase 18 IU/L (<35); Albumin 4.4 g/dL (3.5-5.0); Albumin Globulin Ratio 1.7 (1.0-2.8); Alkaline Phosphatase 61 U/L (38-126); Aspartate Aminotransferase 45 IU/L (14-36); BUN Creatinine Ratio 13.4 (6-22); Bilirubin Total 0.8 mg/dL (0.2-1.3); Blood Urea Nitrogen 13 mg/dL (7-17); Calcium 9.2 mg/dL (8.4-10.2); Carbon Dioxide 29 mmol/L (22-32); Chloride 103 mmol/L (98-107); Estimated Glomerular Filt Rate > 60 mL/min (>60); Globulin 2.6 g/dL (1.7-4.1); Glucose 90 mg/dL (70-99); HEMOLYSIS 16 (0-50); Potassium 4.4 mmol/L (3.4-5.1); Sodium 139 mmol/L (137-145)
[2025-01-15 15:44] LABS: Cholesterol 174 mg/dL (140-199); HDL Cholesterol 75 mg/dL (40-60); LDL Cholesterol Calculated 76 mg/dL (<100); Triglycerides 117 mg/dL (35-150)
== END ==
PROVIDERS: Family Provider Registered Nurse Diabetes Educator; PCP Registered Nurse Diabetes Educator; Referring Provider Family Medicine; Visit Provider Family Medicine
DX: K57.30 Diverticulosis of large intestine without perforation or abscess without bleeding (principal); K56.609 Unspecified intestinal obstruction, unspecified as to partial versus complete obstruction; K44.9 Diaphragmatic hernia without obstruction or gangrene; K59.00 Constipation, unspecified; E78.5 Hyperlipidemia, unspecified; R10.9 Unspecified abdominal pain; Z90.49 Acquired absence of other specified parts of digestive tract; Z87.19 Personal history of other diseases of the digestive system; Z98.890 Other specified postprocedural states
CPT/HCPCS: 74177; 80053; 80061; Q9967

== ENCOUNTER → 2025-04-17 15:19 | Outpatient (CLI) | payer OTHER, SELFPAY ==
[2024-11-24 16:30] VITALS: BMI 22.9
--- NOTE | 2025-04-17 15:21 | DI.RAD.S_ITS ---
PROCEDURE: XR CERVICAL SPINE 2V OR 3V INDICATIONS: BACK PAIN TECHNIQUE: 3 view(s) of the cervical spine were acquired. COMPARISON: [facility], CR, XR CERVICAL SPINE 4V OR 5V, 08/13/2023, 10:11. FINDINGS: Bones: No fractures or dislocations to the C7 level. Moderate disc height loss at the C5-C6 and C6-C7 levels with adjacent endplate sclerosis and anterior osteophytosis. The lateral masses of C1 appear intact on the odontoid view. No suspicious bony lesions. Soft tissues: No prevertebral soft tissue swelling. IMPRESSION: Degenerative change without evidence of displaced fracture or traumatic subluxation. Dictated by: Mansoor Ramirez M.D. on 04/20/2025 at 10:42 Approved by: Mansoor Ramirez M.D. on 04/20/2025 at 10:43
--- NOTE | 2025-04-17 15:27 | DI.MRI.S_ITS ---
PROCEDURE: MR KNEE RT W CON INDICATIONS: KNEE PAIN TECHNIQUE: After the administration of 50 mL of dilute intra-articular Gadolinium contrast, sagittal T1 spin echo with fat saturation and PD fast spin echo with fat saturation, coronal T1 spin echo with and without fat saturation, coronal T2 fast spin echo with fat saturation, axial PD fast spin echo with fat saturation through the knee. COMPARISON: None. FINDINGS: Image quality: Excellent. Menisci: In the medial meniscus, there is a small undersurface tear of the posterior horn (10:23). The medial meniscus body is diminutive, which may be postprocedural. There is moderate extrusion of the medial meniscus body. The lateral meniscus is unremarkable. Cruciate ligaments: Status post ACL reconstruction. The ACL graft is mildly diminutive, but is intact. No full-thickness tear of the ACL graft. The PCL is intact. Medial structures: The medial collateral ligament appears intact. The posterior oblique ligament, semimembranosus tendon insertions, oblique popliteal ligament, and meniscocapsular junction appear intact. Visualized portions of the pes anserinus tendons appear normal. No abnormal bursal fluid. Lateral structures: The lateral collateral ligament, long and short heads of the biceps femoris tendon appear intact. The popliteus tendon appears normal; the popliteofibular ligament appears intact. The posterosuperior and anteroinferior popliteomeniscal fascicles appear intact. The arcuate and fabellofibular ligaments appear intact around the lateral inferior geniculate artery. Iliotibial band appears normal. Anterior structures: The quadriceps tendon is intact. Mild tendinosis of the patellar tendon. Patellar alignment is normal. No femoral trochlear dysplasia or ventral trochlear prominence. No edema in the infrapatellar fat pad. Bone and cartilage: Mild chondrosis of the patellofemoral compartment with full-thickness chondral loss in the median ridge and the central trochlea. Mild chondrosis of the medial compartment with mild subchondral marrow edema. Mild chondrosis of the lateral compartment. No acute fracture. Joint space: No Rogers's cyst. Normal appearing synovial plicae are incidentally noted. No intra-articular bodies. IMPRESSION: 1. Tear of the posterior horn the medial meniscus. Diminutive medial meniscus body, which may be postprocedural. 2. Status post ACL reconstruction with diminutive ACL graft. No full-thickness tear of the ACL graft. 3. Mild, tricompartmental chondrosis. Dictated by: Raine Church M.D. on 04/17/2025 at 17:42 Approved by: Raine Church M.D. on 04/17/2025 at 17:51
== END ==
PROVIDERS: Family Provider Registered Nurse Diabetes Educator; PCP Registered Nurse Diabetes Educator; Referring Provider Chiropractor; Visit Provider Chiropractor
DX: M47.812 Spondylosis without myelopathy or radiculopathy, cervical region (principal); M54.2 Cervicalgia
CPT/HCPCS: 72040; 73722

== ENCOUNTER → 2025-06-10 15:31 | Outpatient (CLI) | payer OTHER, SELFPAY ==
[2024-11-24 16:30] VITALS: BMI 22.9
--- NOTE | 2025-06-10 15:33 | DI.RAD.S_ITS ---
PROCEDURE: XR KNEE RT 1TO2V INDICATIONS: eval R knee pain TECHNIQUE: Two views of the knee were acquired. COMPARISON: None. FINDINGS: Bones: There are no osseous abnormalities. Joints: Moderate patellofemoral and medial tibial femoral degeneration . Small effusion. Soft tissues: Moderate calcification quadriceps tendon insertion on the patella IMPRESSION: Chronic findings Dictated by: Josué Baird M.D. on 06/11/2025 at 7:37 Approved by: Josué Baird M.D. on 06/11/2025 at 7:38
== END ==
PROVIDERS: PCP Registered Nurse Diabetes Educator; Referring Provider Registered Nurse Diabetes Educator; Visit Provider Registered Nurse Diabetes Educator
DX: M17.11 Unilateral primary osteoarthritis, right knee (principal); M25.461 Effusion, right knee; M65.851 Other synovitis and tenosynovitis, right thigh; M25.561 Pain in right knee; G89.29 Other chronic pain
CPT/HCPCS: 73560

== ENCOUNTER → 2025-06-18 15:13 | Outpatient (CLI) | payer OTHER, SELFPAY ==
[2024-11-24 16:30] VITALS: BMI 22.9
--- NOTE | 2025-06-18 15:14 | DI.MRI.S_ITS ---
PROCEDURE: MR KNEE RT WO CON INDICATIONS: eval R knee pain TECHNIQUE: Noncontrast sagittal PD fast spin echo and T2 fast spin echo with fat saturation, sagittal 3-D FLASH with fat saturation; coronal T1 spin echo and PD fast spin echo with fat saturation, and axial PD fast spin echo with fat saturation through the knee. COMPARISON: None. FINDINGS: Image quality: Excellent. Some images are limited by patient motion, pulsation or other artifacts. Bones and cartilage: Approximately 1.5 cm area low T1 high T2 signal/edema in the anterior aspect of the lateral femoral condyle medially suspicious for bone contusion versus subchondral edema related to focal chondral defect and cartilage thinning. Trabecular injury or other process could be considered. Similar low T1 high T2 signal is noted in the patella predominantly the lateral patellar facet. Mild diffuse cartilage thinning in the medial greater than lateral compartments. Diffuse cartilage thinning and irregularity of the lateral greater than medial patellar facet and femoral patellar cartilage. No definitive fracture line. Menisci: Subtle signal changes in the posterior horn of the medial meniscus possible vertical tear versus internal globular signal (coronal series 13, image 19). Otherwise the midbody and anterior horn of the medial meniscus intact. Mild signal changes in the posterior horn of the lateral meniscus more likely internal globular degenerative signal than horizontal tear. Cruciate ligaments: Mild increased T2 weighted signal and thinning of the mid and distal anterior cruciate ligament but with intact fibers without complete tear or retraction mild injury/strain. Posterior cruciate ligament is normal. Medial structures: Small popliteal cyst measures approximately 2 cm cc by 1.5 cm transverse by 1 cm AP maximal dimensions. The medial collateral ligament appears intact. The semimembranosus tendon insertion is normal. Visualized portions of the pes anserinus tendons appear normal. No abnormal bursal fluid. Lateral structures: Mild increased lateral bursal fluid. The lateral collateral ligament, long and short heads of the biceps femoris tendon appear intact. The popliteus tendon appears normal. Iliotibial band appears normal. Anterior structures: Mild increased T2 weighted signal and thickening distal quadriceps tendon mild tendinopathy. Mild 3 mm lateral subluxation of the patella. Mild nonspecific edema anterior to the patella and patellar ligament which is intact. No significant edema in the infrapatellar fat pad. No MR evidence of patella taylor or patella baja. Joint space: Mild knee joint effusion. IMPRESSION: Bone edema in the lateral femoral condyle and patella as discussed above. Degenerative changes with cartilage thinning in the medial lateral and patellofemoral compartments. Possible vertical tear medial meniscus posterior horn. Mild injury/strain anterior cruciate ligament without tear. Small popliteal cyst. Mild knee joint effusion Other findings as discussed above Dictated by: Jan Walker M.D. on 06/20/2025 at 22:09 Approved by: Jan Walker M.D. on 06/20/2025 at 22:19
== END ==
PROVIDERS: PCP Registered Nurse Diabetes Educator; Referring Provider Registered Nurse Diabetes Educator; Visit Provider Registered Nurse Diabetes Educator
DX: M71.21 Synovial cyst of popliteal space [Baker], right knee (principal); M25.561 Pain in right knee; M25.461 Effusion, right knee; R60.0 Localized edema; G89.29 Other chronic pain
CPT/HCPCS: 73721

== ENCOUNTER 2025-08-11 14:30 | Outpatient (RCR) | payer OTHER, SELFPAY ==
[2024-11-24 16:30] VITALS: BMI 22.9
--- NOTE | 2025-05-14 13:24 | PT.OIE ---
Current Diagnoses Urge incontinence (05/14/25) Pelvic muscle wasting (05/14/25) Unspecified urinary incontinence (05/14/25) Past Medical History (Last Reviewed 05/18/25 @ 10:02 by MARVIN Shoemaker) Abdominal discomfort Allergic rhinitis Back pain Carpal tunnel syndrome (~1994) Cataracts, bilateral (~2019) Chicken pox Chronic back pain (~1970) Chronic low back pain Depression (~1996) Dyslipidemia Elevated LDL cholesterol level First degree AV block GI bleed Hx of small bowel obstruction Hypothyroidism (~2007) Insomnia Mumps (~1964) Osteopenia Other low back pain Pneumonia Sinusitis Traumatic closed nondisplaced fracture of proximal end of left humerus with routine healing Past Surgical History (Last Reviewed 05/18/25 @ 10:02 by MARVIN Shoemaker) Anesthesia Cat bite of finger (~2013) H/O umbilical hernia repair History of gastrointestinal surgery (~1975) History of nasal surgery (~2014) History of tonsillectomy (~1975) Visit Care Team Role Provider Type MARVIN Shoemaker Attending Provider Advanced Container Maker Primary Care Provider Referring Provider Specialty: Medical Address: [address] [place] [address] Email: [email or web address] Physical Therapy Initial Evaluation PT OP: Pelvic Health Start: 05/14/25 08:11 Freq: Status: Active Protocol: Document 05/14/25 09:05 [facility] (Rec: 05/14/25 09:31 [facility] [id number]) Out-Patient Physical Therapy Visit Information Visit Information Visit Type Initial Evaluation Visit Start Time 09:05 Visit Stop Time 09:45 Visit Number 1 Evaluation Information Evaluation Date 05/14/25 Current Condition History of Current Condition Onset Date in this past year Current Complaints urinary urge incontinence History of Current hx of March 2024 right pelvic bone fracture when she Condition tripped over a tree root and when she was in the hospital she got up at night to go to the bathroom and fell and broke her left arm The end of September she was hospitalized due to stomache pains and she had abdominal surgery and the mesh from the hernia operation had broken lose and was tangled up in her colon. She was hospitalized 2 weeks during this time and she had to have 2 inches removed. It took a few months to heal. had a umbilical hernia repair in 2021. She takes metamucil, musinex, she has intermittent diarhea she describes urge incontinence. She wakes up 2 times at night to void since her pelvic fx. She is able to make it to the bathroom at night. She doesn't drink coffee, she tries to drink 3/4 of a gallon per day. She is voiding approx 12 times per day She is also dealing with a hiatal hernia OP-PT Pain Assessment Location low back Pain Location low back Details Pain Intensity 5 Scale Used Numeric (0 - 10) Description Pressure,Tightness,Throbbing Pelvic Floor Assessment Urine Pelvic Floor Surgery No: recent pelvic fracture Urinary Symptoms Urge Sensation Other Urinary voiding 11-14 times per day Symptoms Leakage Size Medium Leaks Per Day 2-3 Voiding Frequency 11-14 Nocturia 2 Contraction Ability Voluntary Weak Contraction Voluntary Relaxation Weak Muscle Endurance ( 3 Seconds) Comments Pelvic Floor external pelvic floor and core assessment done today Comments and pt has difficulty with any facilitation of the pelvic floor. She will be a good candidate for EMG biofeedback she is currently wearing bladder underwear for protection Trunk Strength Trunk Manual Muscle Testing Testing Position Supine Flexion 3 Fair Core Stabilization decreased transverse abdominal activation and poor core control Hip Strength Hip Manual Muscle Testing L Flexion (L2) 3 Fair Extension (S1) 3 Fair Abduction 3 Fair Adduction 3 Fair External Rotation 3 Fair R Flexion (L2) 3- Fair- Extension (S1) 3- Fair- Abduction 3- Fair- Adduction 3- Fair- External Rotation 3- Fair- Internal Rotation 3- Fair- Therapeutic Exercises Supine Exercises pelvic floor long holds Reps/Minutes 10 reps with 5 sec hold using a ball as a adductor assist Self-Care/Home Management Treatment Education Patient Education Home Exercise Program Other Education pt was given a bladder diary for home and was educated on the urge deference technique for bladder retraining Physical Therapy Assessment Rehab Potential Rehabilitation Good Potential Evaluation Complexity Number of Personal 1-2 Factors/ Comorbidities Number of Body 3 Systems Impaired Clinical Evolving Presentation at Evaluation Impairments Impairments Activity Tolerance,Functional Activities,Functional Mobility,Soft Tissue Mobility,Strength Other Impairments urinary incontinence that is mixed in nature as pt is leaking with strong urge but also with changing positions such as with sit-stand Goals 3 Impairment pelvic floor and core weakness with decreased endurance for sustaining a contraction for more than a few seconds Short Term Goal (STG Natty is able to sustain a pelvic floor contraction in ) supine x 10 seconds STG Duration 4 weeks Fuel Yard Operator Goal (LTG) Natty is able to engage her pelvic floor for transitional activities such as sit-stand and hold up to 5 seconds in sitting LTG Duration 8 weeks + 2 Impairment urinary incontinence that is happening multiple times per day with activities such as walking to the toilet, strong urge to void, and with changing positions Fdc Goal (LTG) Natty reports a overall reduction in urinary incontinence LTG Duration 8 weeks + 1 Impairment urinary urgency with pt voiding 11-14 times per day Short Term Goal (STG Natty is educated on the urge deference technique and ) bladder retraining STG Duration 4 weeks Fdc Goal (LTG) Natty is able to increase time between voids to every 2 hours LTG Duration 8 weeks Assessment Summary Assessment Natty is a 74 year old female with history of urinary urge incontinence symptoms that have worsened in the past year. She has had recent medical conditions that have caused overall weakness including a pelvic fracture in 2023 and a colon resection this past September. Natty reports urgency will increase when walking into her house of after she has been sitting. She reports voiding over 12 times per day and is waking now 2 times at night With evaluation today Natty has difficulty facilitating a contraction of her pelvic floor. Her core and hip strength is weak and she lacks endurance. Pt was given a bladder diary today to fill out for the week to track voids and leaks. She was educated in the urge deference technique and I did start her with adductor assist pelvic floor 5 second holds. Natty is a good candidate for PT focusing on pelvic floor and core strength and endurance training. Physical Therapy Plan Frequency and Duration Frequency of 1x/Week Treatment Duration of 8 treatment (weeks) Plan of Care Start 05/14/25 Date Plan of Care End 07/09/25 Date Therapeutic Interventions Therapeutic Home Exercise Program,Neuromuscular Re-education,Self- Interventions Care/Home Management,Therapeutic Exercises Modalities Biofeedback Next Visit Focus/Plan Next Note Type Treatment Note Next Visit Plan Begin EMG biofeedback for pelvic floor endurance training, review bladder diary and urge deference technique
--- NOTE | 2025-05-20 09:57 | PT.OTN ---
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) Unspecified urinary incontinence (05/20/25) Physical Therapy Treatment Note PT OP: Pelvic Health Start: 05/14/25 08:11 Freq: Status: Active Protocol: Document 05/20/25 09:03 [facility] (Rec: 05/20/25 09:56 [facility] [id number]) Out-Patient Physical Therapy Visit Information Visit Information Visit Type Treatment Note Visit Start Time 09:02 Visit Stop Time 09:45 Visit Number 2 Current Condition History of Current Condition Onset Date in this past year Current Complaints urinary urge incontinence History of Current hx of March 2024 right pelvic bone fracture when she Condition tripped over a tree root and when she was in the hospital she got up at night to go to the bathroom and fell and broke her left arm The end of September she was hospitalized due to stomache pains and she had abdominal surgery and the mesh from the hernia operation had broken lose and was tangled up in her colon. She was hospitalized 2 weeks during this time and she had to have 2 inches removed. It took a few months to heal. had a umbilical hernia repair in 2021. She takes metamucil, musinex, she has intermittent diarhea she describes urge incontinence. She wakes up 2 times at night to void since her pelvic fx. She is able to make it to the bathroom at night. She doesn't drink coffee, she tries to drink 3/4 of a gallon per day. She is voiding approx 12 times per day She is also dealing with a hiatal hernia OP-PT Subjective Patient Comments Patient Comments pt brings in her bladder diary she is working on the urge technique, she loses urine from sitting to standing Therapeutic Exercises Supine Exercises adductor assist pelvic floor long holds Reps/Minutes 10 reps Comments average 15.3 and max 27.5 pelvic floor long holds Supine Exercise Name able to rest to baseline Reps/Minutes 14.7 uv max 65 Sidelying Exercises clam shells Reps/Minutes 3 x 10 reps Standing Exercises sit to stand Standing Exercise sit to stand with pelvic floor engagement Name Reps/Minutes x 10 reps Self-Care/Home Management Treatment Education Patient Education Home Exercise Program Other Education review of bladder diary and urge deference technique Physical Therapy Assessment Goals 3 Impairment pelvic floor and core weakness with decreased endurance for sustaining a contraction for more than a few seconds Short Term Goal (STG Natty is able to sustain a pelvic floor contraction in ) supine x 10 seconds STG Duration 4 weeks Loss Prevention Representative Goal (LTG) Natty is able to engage her pelvic floor for transitional activities such as sit-stand and hold up to 5 seconds in sitting LTG Duration 8 weeks + 2 Impairment urinary incontinence that is happening multiple times per day with activities such as walking to the toilet, strong urge to void, and with changing positions Loss Prevention Representative Goal (LTG) Natty reports a overall reduction in urinary incontinence LTG Duration 8 weeks + 1 Impairment urinary urgency with pt voiding 11-14 times per day Short Term Goal (STG Natty is educated on the urge deference technique and ) bladder retraining STG Duration 4 weeks Loss Prevention Representative Goal (LTG) Natty is able to increase time between voids to every 2 hours LTG Duration 8 weeks Assessment Summary Assessment EMG biofeedback was initiated for Natty today and she tolerated this well. She has difficulty sustaining a pelvic floor muscle contraction but is able to contract to a good intensity. I added in sit-stands for her as it is difficult for her to get out of her recliner and this is when she finds she loses urine. Physical Therapy Plan Frequency and Duration Frequency of 1x/Week Treatment Duration of 8 treatment (weeks) Plan of Care Start 05/14/25 Date Plan of Care End 07/09/25 Date Next Visit Focus/Plan Next Note Type Treatment Note Next Visit Plan continue with EMG biofeedback strengthening and endurance training for the pelvic floor, add in standing squats next visit and bridges
--- NOTE | 2025-05-27 13:40 | PT.OTN ---
Current Diagnoses Urge incontinence (05/27/25) Pelvic muscle wasting (05/27/25) Unspecified urinary incontinence (05/27/25) Physical Therapy Treatment Note PT OP: Pelvic Health Start: 05/14/25 08:11 Freq: Status: Active Protocol: Document 05/27/25 09:51 [facility] (Rec: 05/27/25 10:46 [facility] [id number]) Out-Patient Physical Therapy Visit Information Visit Information Visit Type Treatment Note Visit Start Time 09:50 Visit Stop Time 10:35 Visit Number 3 OP-PT Subjective Patient Comments Patient Comments pt notes she has been working on the urge technique, she will get the urge again right when she gets to the bathroom. Natty reports she is frustrated with her symptoms Therapeutic Exercises Supine Exercises quick flicks Reps/Minutes 10 reps adductor assist pelvic floor long holds Reps/Minutes 10 reps Comments 16.6 average 33.0 pelvic floor long holds Reps/Minutes 17.5 average and max 41.7 Sidelying Exercises clam shells Reps/Minutes 2 x 10 reps Standing Exercises standing mini squats Reps/Minutes x 10 reps sit to stand Reps/Minutes x 10 reps Physical Therapy Assessment Goals 3 Impairment pelvic floor and core weakness with decreased endurance for sustaining a contraction for more than a few seconds Short Term Goal (STG Natty is able to sustain a pelvic floor contraction in ) supine x 10 seconds STG Duration 4 weeks Global Analytics Head Goal (LTG) Natty is able to engage her pelvic floor for transitional activities such as sit-stand and hold up to 5 seconds in sitting LTG Duration 8 weeks + 2 Impairment urinary incontinence that is happening multiple times per day with activities such as walking to the toilet, strong urge to void, and with changing positions Global Analytics Head Goal (LTG) Natty reports a overall reduction in urinary incontinence LTG Duration 8 weeks + 1 Impairment urinary urgency with pt voiding 11-14 times per day Short Term Goal (STG Natty is educated on the urge deference technique and ) bladder retraining STG Duration 4 weeks Usp Goal (LTG) Natty is able to increase time between voids to every 2 hours LTG Duration 8 weeks Assessment Summary Assessment Natty is showing progress with pelvic floor strength and endurance on EMG biofeedback. THis was her second day using the biofeedback and her average was higher today than last visit. I encouraged her that it can take awhile to increase her strength and for symptoms to start decreasing Physical Therapy Plan Frequency and Duration Frequency of 1x/Week Treatment Duration of 8 treatment (weeks) Plan of Care Start 05/14/25 Date Plan of Care End 07/09/25 Date Next Visit Focus/Plan Next Note Type Treatment Note Next Visit Plan review standing squats and continued with pelvic floor endurance training and strengthening
--- NOTE | 2025-06-08 09:47 | PT.OTN ---
Current Diagnoses Urge incontinence (06/08/25) Pelvic muscle wasting (06/08/25) Unspecified urinary incontinence (06/08/25) Physical Therapy Treatment Note PT OP: Pelvic Health Start: 05/14/25 08:11 Freq: Status: Active Protocol: Document 06/08/25 09:06 [facility] (Rec: 06/08/25 09:49 [facility] [id number]) Out-Patient Physical Therapy Visit Information Visit Information Visit Type Treatment Note Visit Start Time 09:06 Visit Stop Time 09:47 Visit Number 5 Number of BEEF TRIMMER Visits 1 Progress Note Due 06/13/25 OP-PT Subjective Patient Comments Patient Comments Pt reports is frustrated is still havign leakage when running to the bathroom. Woke up 3x last night to go to the bathroom with no leakage on the way. Limits fluid intake about 2 hrs before bed. Wears absorbent underwear and has to clean (rise and soap water) them after leakage, embarrassed that can't get the urine odor out when is hanging to dry and bathroom has this odor. Is there something can use to clean underwear that eliminate the odor. Therapeutic Exercises Supine Exercises quick flicks Reps/Minutes 10 reps Comments avg 16 and max 29.7, avg relax 10.5 (noted lowest 3.0) pelvic floor long holds Reps/Minutes 18.3 and max 41.3, avg relax 3.6 Comments 10 reps Sidelying Exercises clam shells Sidelying Exercise verbal review Name Reps/Minutes 2 x 10 reps Standing Exercises standing mini squats Standing Exercise verbal review Name sit to stand Reps/Minutes x 10 reps Comments cued pelvic floor draw in coming to stand and slow eccentric sitting Self-Care/Home Management Treatment Education Patient Education Body Mechanics,Home Exercise Program,Posture Other Education Extensive time education on Urge Technique stop moving pelvic floor engagement quick flicks til urge goes away then continue walk to the bathroom, cues for PF engegment and gentle draw in/up, not over recruit glut with PF engagement. Suggested use of absorptent underwear and additive pad if needed for clothing protection.Imroved understanding. Didn't get to ask more about understanding of bladder irritants but would benefit next tx. Physical Therapy Assessment Goals 3 Impairment pelvic floor and core weakness with decreased endurance for sustaining a contraction for more than a few seconds Short Term Goal (STG Natty is able to sustain a pelvic floor contraction in ) supine x 10 seconds STG Duration 4 weeks Objective C Developer Goal (LTG) Natty is able to engage her pelvic floor for transitional activities such as sit-stand and hold up to 5 seconds in sitting LTG Duration 8 weeks + 2 Impairment urinary incontinence that is happening multiple times per day with activities such as walking to the toilet, strong urge to void, and with changing positions Penitentiary Goal (LTG) Natty reports a overall reduction in urinary incontinence LTG Duration 8 weeks + 1 Impairment urinary urgency with pt voiding 11-14 times per day Short Term Goal (STG Natty is educated on the urge deference technique and ) bladder retraining STG Duration 4 weeks Penitentiary Goal (LTG) Natty is able to increase time between voids to every 2 hours LTG Duration 8 weeks Assessment Summary Assessment Pt improved increased strength of contraction with neuromuscular re-ed feedback this tx compared to last but does have challenge performing relaxation. Continued education does take time to gain strength to see reduction in symptoms but in the meantime to continue to perform HEP and utillze urge technique. Suggested use of absorptent underwear and additive pad if needed for clothing protection. Physical Therapy Plan Frequency and Duration Frequency of 1x/Week Treatment Duration of 8 treatment (weeks) Plan of Care Start 05/14/25 Date Plan of Care End 07/09/25 Date Therapeutic Interventions Therapeutic Home Exercise Program,Neuromuscular Re-education,Self- Interventions Care/Home Management,Therapeutic Exercises Modalities Biofeedback Next Visit Focus/Plan Next Note Type Treatment Note Next Visit Plan Next: review standing squats and continued with pelvic floor endurance training and strengthening, trial in sitting and standing if able and tolerated.
--- NOTE | 2025-06-18 15:36 | PT.OPPOC ---
Physical, Occupational & Speech Therapy At [facility] Current Diagnoses Urge incontinence (06/18/25) Pelvic muscle wasting (06/18/25) Unspecified urinary incontinence (06/18/25) Visit Care Team Role Provider Type MARVIN Shoemaker Attending Provider Advanced Jewel Inserter Primary Care Provider Referring Provider Specialty: Medical Address: [address] [place] [address], [facility] Email: [email or web address] Plan Of Care PT OP: Pelvic Health Start: 05/14/25 08:11 Freq: Status: Active Protocol: Document 06/18/25 13:02 [facility] (Rec: 06/18/25 13:47 [facility] [id number]) Out-Patient Physical Therapy Visit Information Visit Information Visit Type Progress Note Visit Start Time 13:00 Visit Stop Time 13:45 Visit Number 6 OP-PT Subjective Patient Comments Patient Comments she felt more control early this week and was able to make it to the bathroom, in the then the past 2 days she is not able to make it to the bathroom and has felt more urgency At night she is making it to the bathroom. She does report she had done a bowel cleanse and feels this helped her with bowel movements and now she is feeling more backed up Therapeutic Exercises Supine Exercises modified pelvic floor squat stretch Reps/Minutes hold 1 min with cues to relax the pelvic floor Comments in supine pulling knees up to chest and out to the sides hooklying hip abduction with theraband Resistance level 3 TB Equipment Used 2 x 10 reps adductor assist pelvic floor long holds Supine Exercise Name resting tone dropped when using the ball Reps/Minutes 10 reps pelvic floor long holds Reps/Minutes 23.3 and max of 28.1 Comments 10 reps Standing Exercises sit to stand Reps/Minutes x 10 reps Comments cued pelvic floor draw in coming to stand and slow eccentric sitting Self-Care/Home Management Treatment Education Patient Education Home Exercise Program Other Education Natty was educated on how a full bowel can contribute to urinary urgency, she was given educated on double voiding and taking her time to void which she is doing more of now. Physical Therapy Assessment Goals 3 Impairment pelvic floor and core weakness with decreased endurance for sustaining a contraction for more than a few seconds Short Term Goal (STG Natty is able to sustain a pelvic floor contraction in ) supine x 10 seconds excellent progress and Natty is up to 8 second holds now STG Duration 4 weeks Fpc Goal (LTG) Natty is able to engage her pelvic floor for transitional activities such as sit-stand and hold up to 5 seconds in sitting pt is working on this with her HEP LTG Duration 8 weeks + 2 Impairment urinary incontinence that is happening multiple times per day with activities such as walking to the toilet, strong urge to void, and with changing positions Riding Coach Goal (LTG) Natty reports a overall reduction in urinary incontinence pt has had some success and intermittent days where she isn't leaking LTG Duration 8 weeks + 1 Impairment urinary urgency with pt voiding 11-14 times per day Short Term Goal ([facility] Natty is educated on the urge deference technique and ) bladder retraining goal met STG Duration 4 weeks Fpc Goal (LTG) Natty is able to increase time between voids to every 2 hours good progress as she is voiding at 1-2 hour intervals LTG Duration 8 weeks Assessment Summary Assessment Natty is showing a good improvement of strength and endurance of the pelvic floor. She does have difficulty with fully relaxing her pelvic floor. Treatment is focusing on education to take her time to void and double voiding, urge deference technique and bladder retraining, pelvic floor strength and endurance training as well as stretches to help relax her pelvic floor. Her bowel habits may also be contributing to her urge symptoms as she has noted better days with less leakage after she has a good bowel movement. Natty would benefit from continued PT as she is making progress but needs continued strengthening Physical Therapy Plan Frequency and Duration Frequency of 1x/Week Treatment Duration of 8 treatment (weeks) Plan of Care Start 06/18/25 Date Plan of Care End 08/13/25 Date Next Visit Focus/Plan Next Note Type Treatment Note Next Visit Plan Next: review standing squats and continued with pelvic floor endurance training and strengthening, trial in sitting and standing if able and tolerated. Plan of Care Dates Plan of Care Start Date 06/18/25 Plan of Care End Date 08/13/25 Electronically Signed by: Madeleine Jarrett, PT 06/18/25 1782 If you are in agreement with this Plan of Care, please return a signed and dated copy. I have reviewed this Plan of Care and certify that the skilled therapy services above are required to meet the patient?s needs. Physician Signature Date Printed Name and Credentials Clinical Instructor Signature Printed Name and Credentials
--- NOTE | 2025-06-23 17:21 | PT.OTN ---
Current Diagnoses Urge incontinence (06/23/25) Pelvic muscle wasting (06/23/25) Unspecified urinary incontinence (06/23/25) Physical Therapy Treatment Note PT OP: Pelvic Health Start: 05/14/25 08:11 Freq: Status: Active Protocol: Document 06/23/25 12:59 [facility] (Rec: 06/23/25 13:44 [facility] [id number]) Out-Patient Physical Therapy Visit Information Visit Information Visit Type Treatment Note Visit Note 10/01 Visit Start Time 13:00 Visit Stop Time 13:45 Visit Number 7 OP-PT Subjective Patient Comments Patient Comments pt has been having headaches with her bladder sometimes she does really good and other times she is experiencing urgency. She has been doing pretty good since . Therapeutic Exercises Supine Exercises modified pelvic floor squat stretch Reps/Minutes hold 1 min with cues to relax the pelvic floor Comments in supine pulling knees up to chest and out to the sides hooklying hip abduction with theraband Resistance level 3 TB Equipment Used 2 x 10 reps quick flicks Comments 10.7 and max of 20.4 adductor assist pelvic floor long holds Reps/Minutes 10 reps Comments 16.1 27.3 max pelvic floor long holds Reps/Minutes average 14.3 max 22.6 Comments 10 reps Physical Therapy Assessment Goals 3 Impairment pelvic floor and core weakness with decreased endurance for sustaining a contraction for more than a few seconds Short Term Goal (STG Natty is able to sustain a pelvic floor contraction in ) supine x 10 seconds excellent progress and Natty is up to 8 second holds now STG Duration 4 weeks Mcc Goal (LTG) Natty is able to engage her pelvic floor for transitional activities such as sit-stand and hold up to 5 seconds in sitting pt is working on this with her HEP LTG Duration 8 weeks + 2 Impairment urinary incontinence that is happening multiple times per day with activities such as walking to the toilet, strong urge to void, and with changing positions Mcc Goal (LTG) Natty reports a overall reduction in urinary incontinence pt has had some success and intermittent days where she isn't leaking LTG Duration 8 weeks + 1 Impairment urinary urgency with pt voiding 11-14 times per day Short Term Goal (STG Ntaty is educated on the urge deference technique and ) bladder retraining goal met STG Duration 4 weeks Testing Projects Administrator Goal (LTG) Natty is able to increase time between voids to every 2 hours good progress as she is voiding at 1-2 hour intervals LTG Duration 8 weeks Assessment Summary Assessment Natty had a headache today and she still wanted to do PT but she was not as strong today with any of her pelvic floor exercises. Physical Therapy Plan Frequency and Duration Frequency of 1x/Week Treatment Duration of 8 treatment (weeks) Plan of Care Start 06/18/25 Date Plan of Care End 08/13/25 Date Next Visit Focus/Plan Next Note Type Treatment Note Next Visit Plan Next: review standing squats and continued with pelvic floor endurance training and strengthening, trial in sitting and standing if able and tolerated.
--- NOTE | 2025-06-30 14:03 | PT.OTN ---
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) Unspecified urinary incontinence (06/30/25) Physical Therapy Treatment Note PT OP: Pelvic Health Start: 05/14/25 08:11 Freq: Status: Active Protocol: Document 06/30/25 11:32 [facility] (Rec: 06/30/25 12:27 [facility] [id number]) Out-Patient Physical Therapy Visit Information Visit Information Visit Type Treatment Note Visit Start Time 11:32 Visit Stop Time 12:00 Visit Number 8 OP-PT Subjective Patient Comments Patient Comments still having headaches she went for inner ear testing but she has to wait a month to get back in Her bladder symptoms are intermittent she is waking up 2 times per night but is able Therapeutic Exercises Supine Exercises modified pelvic floor squat stretch Reps/Minutes hold 1 min with cues to relax the pelvic floor Comments in supine pulling knees up to chest and out to the sides adductor assist pelvic floor long holds Reps/Minutes 10 reps Comments 16.9 and max of 26.7 pelvic floor long holds Supine Exercise Name 0.0 resting tone Reps/Minutes 18.9 uv and max of 33.2 Comments 10 reps Neuro Re-Education Treatment Other Activities NMES for the pelvic floor Details 10 min Comments tried the 12:50 setting but Natty wasn't able to feel the NMES so switched to the 100 setting x 10 min and she went to level 26 used to help neuro re-ed for the pelvic floor Physical Therapy Assessment Goals 3 Impairment pelvic floor and core weakness with decreased endurance for sustaining a contraction for more than a few seconds Short Term Goal (STG Natty is able to sustain a pelvic floor contraction in ) supine x 10 seconds excellent progress and Natty is up to 8 second holds now STG Duration 4 weeks [facility] Goal (LTG) Natty is able to engage her pelvic floor for transitional activities such as sit-stand and hold up to 5 seconds in sitting pt is working on this with her HEP LTG Duration 8 weeks + 2 Impairment urinary incontinence that is happening multiple times per day with activities such as walking to the toilet, strong urge to void, and with changing positions [facility] Goal (LTG) Natty reports a overall reduction in urinary incontinence pt has had some success and intermittent days where she isn't leaking LTG Duration 8 weeks + 1 Impairment urinary urgency with pt voiding 11-14 times per day Short Term Goal (STG Natty is educated on the urge deference technique and ) bladder retraining goal met STG Duration 4 weeks [facility] Goal (LTG) Natty is able to increase time between voids to every 2 hours good progress as she is voiding at 1-2 hour intervals LTG Duration 8 weeks Assessment Summary Assessment still some resting tone, left adductor tightness, strength was better this week but Natty is still dealing with a headache. I encouraged Natty to continue working on her pelvic stretches for home especially for the adductors Physical Therapy Plan Frequency and Duration Frequency of 1x/Week Treatment Duration of 8 treatment (weeks) Plan of Care Start 06/18/25 Date Plan of Care End 08/13/25 Date Next Visit Focus/Plan Next Note Type Progress Note Next Visit Plan trial of NMES again next visit with 12:50 setting for urgency
--- NOTE | 2025-07-15 12:53 | PT.OTN ---
Current Diagnoses Urge incontinence (07/15/25) Pelvic muscle wasting (07/15/25) Unspecified urinary incontinence (07/15/25) Physical Therapy Treatment Note PT OP: Pelvic Health Start: 05/14/25 08:11 Freq: Status: Active Protocol: Document 07/15/25 09:06 [facility] (Rec: 07/15/25 09:29 [facility] [id number]) Out-Patient Physical Therapy Visit Information Visit Information Visit Type Treatment Note Visit Start Time 09:05 Visit Stop Time 09:45 Visit Number 9 OP-PT Subjective Patient Comments Patient Comments pt notes she is noticing her bladder is better, urgency is easier to control. still waking up at night to void but she also wasn't sleeping knowing she had a early appt. Overall symptoms are improving Therapeutic Exercises Supine Exercises hooklying hip abduction with theraband Resistance level 3 TB Equipment Used 2 x 10 reps quick flicks Reps/Minutes 10 reps Comments 13.7 and max 28.9 max pelvic floor long holds Supine Exercise Name 0.0 resting Reps/Minutes 19.6 average and max 36 uv Neuro Re-Education Treatment Other Activities NMES for the pelvic floor Details 10 min Reps/Duration 10 sec on and 10 sec off Comments 12:50 setting for urgency and pt was able to feel at level 30 Physical Therapy Assessment Goals 3 Impairment pelvic floor and core weakness with decreased endurance for sustaining a contraction for more than a few seconds Short Term Goal (STG Natty is able to sustain a pelvic floor contraction in ) supine x 10 seconds excellent progress and Natty is up to 8 second holds now STG Duration 4 weeks [facility] Goal (LTG) Natty is able to engage her pelvic floor for transitional activities such as sit-stand and hold up to 5 seconds in sitting pt is working on this with her HEP LTG Duration 8 weeks + 2 Impairment urinary incontinence that is happening multiple times per day with activities such as walking to the toilet, strong urge to void, and with changing positions Physician Ophthalmologist Goal (LTG) Natty reports a overall reduction in urinary incontinence pt has had some success and intermittent days where she isn't leaking LTG Duration 8 weeks + 1 Impairment urinary urgency with pt voiding 11-14 times per day Short Term Goal (STG Natty is educated on the urge deference technique and ) bladder retraining goal met STG Duration 4 weeks [facility] Goal (LTG) Natty is able to increase time between voids to every 2 hours good progress as she is voiding at 1-2 hour intervals LTG Duration 8 weeks Assessment Summary Assessment Strength is showing progress again and Natty's symptoms of leakage are starting to reduce. She tolerated the NMES today and had improved sensation as compared to last visit. Pt does have a new water bottle now and is trying to drink more water Physical Therapy Plan Frequency and Duration Frequency of 1x/Week Treatment Duration of 8 treatment (weeks) Plan of Care Start 06/18/25 Date Plan of Care End 08/13/25 Date Next Visit Focus/Plan Next Note Type Treatment Note Next Visit Plan trial of NMES again next visit with 12:50 setting for urgency, sit-stand with pelvic floor engagement, continue with pelvic floor endurance training
--- NOTE | 2025-07-22 13:32 | PT.OTN ---
Current Diagnoses Urge incontinence (07/22/25) Pelvic muscle wasting (07/22/25) Unspecified urinary incontinence (07/22/25) Physical Therapy Treatment Note PT OP: Pelvic Health Start: 05/14/25 08:11 Freq: Status: Active Protocol: Document 07/22/25 09:55 [facility] (Rec: 07/22/25 10:09 [facility] [id number]) Out-Patient Physical Therapy Visit Information Visit Information Visit Type Treatment Note Visit Start Time 09:05 Visit Stop Time 09:45 Visit Number 10 OP-PT Subjective Patient Comments Patient Comments pt notes she has had mixed bladder symptoms this week sometimes good and sometimes bad, when she wakes up at night and in the am there is no leaking, she notes its when she is sitting in a chair and has to scoot to the edge of the chair with a urge is when she can notice a accident Therapeutic Exercises Supine Exercises modified pelvic floor squat stretch Reps/Minutes hold 1 min with cues to relax the pelvic floor Comments in supine pulling knees up to chest and out to the sides hooklying hip abduction with theraband Resistance level 3 TB Equipment Used 2 x 10 reps quick flicks Reps/Minutes 10 reps adductor assist pelvic floor long holds Supine Exercise Name used zander template Reps/Minutes 10 reps Comments 18.6 and max of 42 pelvic floor long holds Reps/Minutes 16 and 29.1 uv max Neuro Re-Education Treatment Other Activities NMES for the pelvic floor Details 10 Reps/Duration 10 sec on and 10 sec off Comments able to feel the sensation at level 15 today and went to level 25 Physical Therapy Assessment Goals 3 Impairment pelvic floor and core weakness with decreased endurance for sustaining a contraction for more than a few seconds Short Term Goal (STG Natty is able to sustain a pelvic floor contraction in ) supine x 10 seconds excellent progress and Natty is up to 8 second holds now STG Duration 4 weeks [facility] Goal (LTG) Natty is able to engage her pelvic floor for transitional activities such as sit-stand and hold up to 5 seconds in sitting pt is working on this with her HEP LTG Duration 8 weeks + 2 Impairment urinary incontinence that is happening multiple times per day with activities such as walking to the toilet, strong urge to void, and with changing positions [facility] Goal (LTG) Natty reports a overall reduction in urinary incontinence pt has had some success and intermittent days where she isn't leaking LTG Duration 8 weeks + 1 Impairment urinary urgency with pt voiding 11-14 times per day Short Term Goal (STG Natty is educated on the urge deference technique and ) bladder retraining goal met STG Duration 4 weeks [facility] Goal (LTG) Natty is able to increase time between voids to every 2 hours good progress as she is voiding at 1-2 hour intervals LTG Duration 8 weeks Assessment Summary Assessment resting tone a little higher today so her modified pelvic floor squat stretch was reviewed. She felt the NMES at a lower level today as well , encouraged pelvic floor contraction prior to sit-stand to support her bladder Physical Therapy Plan Frequency and Duration Frequency of 1x/Week Treatment Duration of 8 treatment (weeks) Plan of Care Start 06/18/25 Date Plan of Care End 08/13/25 Date Next Visit Focus/Plan Next Note Type Treatment Note Next Visit Plan continue with stretches for pelvic floor relaxation, NMES 12:50 setting for urgency, sit-stand with pelvic floor engagement
--- NOTE | 2025-07-30 09:45 | PT.OTN ---
Current Diagnoses Urge incontinence (07/30/25) Pelvic muscle wasting (07/30/25) Unspecified urinary incontinence (07/30/25) Physical Therapy Treatment Note PT OP: Pelvic Health Start: 05/14/25 08:11 Freq: Status: Active Protocol: Document 07/30/25 08:58 [facility] (Rec: 07/30/25 09:05 [facility] [id number]) Out-Patient Physical Therapy Visit Information Visit Information Visit Type Treatment Note Visit Start Time 09:00 Visit Stop Time 09:45 Visit Number 11 OP-PT Subjective Patient Comments Patient Comments pt reports she has days that are really good and then she had 2 days of leakage. SHe has been having abdominal pains under her rib cage and does feel she is backed up. SHe has had small amounts of bowel movements each day. Therapeutic Exercises Supine Exercises adductor assist pelvic floor long holds Reps/Minutes 12 reps Comments average of 11 max of 28 pelvic floor long holds Reps/Minutes 10 reps holding 10 sec Comments 16.6 and 35 Sitting Exercises seated thoracic rotation Comments to help stimulate a bowel movement Self-Care/Home Management Treatment Education Patient Education Home Exercise Program Other Education ILU self massage instruction Physical Therapy Assessment Goals 3 Impairment pelvic floor and core weakness with decreased endurance for sustaining a contraction for more than a few seconds Short Term Goal (STG Natty is able to sustain a pelvic floor contraction in ) supine x 10 seconds excellent progress and Natty is up to 8 second holds now STG Duration 4 weeks [facility] Goal (LTG) Natty is able to engage her pelvic floor for transitional activities such as sit-stand and hold up to 5 seconds in sitting pt is working on this with her HEP LTG Duration 8 weeks + 2 Impairment urinary incontinence that is happening multiple times per day with activities such as walking to the toilet, strong urge to void, and with changing positions [facility] Goal (LTG) Natty reports a overall reduction in urinary incontinence pt has had some success and intermittent days where she isn't leaking LTG Duration 8 weeks + 1 Impairment urinary urgency with pt voiding 11-14 times per day Short Term Goal (STG Natty is educated on the urge deference technique and ) bladder retraining goal met STG Duration 4 weeks [facility] Goal (LTG) Natty is able to increase time between voids to every 2 hours good progress as she is voiding at 1-2 hour intervals LTG Duration 8 weeks Assessment Summary Assessment resting tone back down to baseline today constipation likely contributing to urgency. I educated Natty on a ILU massage today and we added in thoracic rotation exercise to help Physical Therapy Plan Frequency and Duration Frequency of 1x/Week Treatment Duration of 8 treatment (weeks) Plan of Care Start 06/18/25 Date Plan of Care End 08/13/25 Date Therapeutic Interventions Therapeutic Home Exercise Program,Neuromuscular Re-education,Self- Interventions Care/Home Management,Therapeutic Exercises Modalities Biofeedback Next Visit Focus/Plan Next Note Type Treatment Note Next Visit Plan review ILU massge and thoracic rotation exercises
--- NOTE | 2025-08-04 13:49 | PT.OTN ---
Current Diagnoses Urge incontinence (08/04/25) Pelvic muscle wasting (08/04/25) Unspecified urinary incontinence (08/04/25) Physical Therapy Treatment Note PT OP: Pelvic Health Start: 05/14/25 08:11 Freq: Status: Active Protocol: Document 08/04/25 13:03 [facility] (Rec: 08/04/25 13:15 [facility] [id number]) Out-Patient Physical Therapy Visit Information Visit Information Visit Type Treatment Note Visit Start Time 13:03 Visit Stop Time 13:49 Visit Number 12 Number of FOOD AND BEVERAGE OUTLETS MANAGER Visits 1 Progress Note Due 07/18/25 OP-PT Subjective Patient Comments Patient Comments Pt reports feels getting stronger overall, able to make it to bathroom with less to no leakage. But few days ago did some PF contraction before came to standing and still leaked alot when came to standing. She is frustrated not significant, consistant no leakage yet. She reports has been having some pain over R lower quadrant and lateral abdomen and unsure why, if related to bladder leakage. Therapeutic Exercises Supine Exercises quick flicks Reps/Minutes 5 Sh 5 sec rest x10 reps Comments avg 11.6, max 22.5 pelvic floor long holds Reps/Minutes 10 reps holding 10 sec Comments avg 17.3 and 32.4 max, resting avg 3.7 Sitting Exercises seated thoracic rotation Side right Equipment Used arms across chest and 1 arm straight front/other reaching out to side HABD Reps/Minutes 10 reps each side Comments to help stimulate a bowel movement Standing Exercises PF long holds Standing Exercise instructed for contractions support urge technique Name performance- visual Reps/Minutes 5SH x5 10 reps Comments avg 12.9 max 28.5 sit to stand Reps/Minutes x5 reps Comments cued pelvic floor draw in coming to stand and slow eccentric sitting Self-Care/Home Management Treatment Education Patient Education Home Exercise Program Other Education Education review on urge technique and provided HO for bladder irritants, importance of hydration 50% body weight in fluid ounces ideal goal but overall hydration awareness for reduction urine acidity, also can be an irritant. Physical Therapy Assessment Goals 3 Impairment pelvic floor and core weakness with decreased endurance for sustaining a contraction for more than a few seconds Short Term Goal (STG Natty is able to sustain a pelvic floor contraction in ) supine x 10 seconds excellent progress and Natty is up to 8 second holds now STG Duration 4 weeks Teletype Telegrapher Goal (LTG) Natty is able to engage her pelvic floor for transitional activities such as sit-stand and hold up to 5 seconds in sitting pt is working on this with her HEP 08/04/25: can hold contraction fo 5 sec seated LTG Duration 8 weeks + progressing 08/04/25 2 Impairment urinary incontinence that is happening multiple times per day with activities such as walking to the toilet, strong urge to void, and with changing positions Teletype Telegrapher Goal (LTG) Natty reports a overall reduction in urinary incontinence pt has had some success and intermittent days where she isn't leaking 08/04/25: reports getting to the bathroom with less or no leakage, but 2 days ago had leakage as soon as came to standing and did do PF contractions before stood up. LTG Duration 8 weeks + progressing 08/04/25 1 Impairment urinary urgency with pt voiding 11-14 times per day Short Term Goal (STG Natty is educated on the urge deference technique and ) bladder retraining goal met STG Duration 4 weeks Custodial Goal (LTG) Natty is able to increase time between voids to every 2 hours good progress as she is voiding at 1-2 hour intervals 08/04/25: yesterday could go 3 hrs before going to the bathroom. LTG Duration 8 weeks progressing 08/04/25 Assessment Summary Assessment FOOD AND BEVERAGE OUTLETS MANAGER updated feedback to goals and how she reports/ demonstrates improving since her last progress note end of May. Education on PF contractions before comes to standing for PF awareness, of which she does most of the time and most of the time is successful. Reviewed bladder irritants for awareness of foods and drinks that might irritate bladder and maybe why still could have leakage, unsure. DIscussed importance of hydration , ideal drinking 50% of body weight in fluid ounces allows hydration and less acidic urine that can also cause bladder irritation if not well hydrated. Pt verbalized understanding. Today continues to demonstrate improvement in PF contraction strength hooklying and trialed today in standing for self awareness hold strength allowance able to perform against gravity for ability to get to bathroom when urge comes on but to utilize urge technique. Education PF musculature can get weak isometric contraction while walking, when leakage can happen why urge technique important perform until feeling goes away then walk to the bathroom, re-education. She is able to go longer without bathroom need use up to 3 hrs now, improvements . Physical Therapy Plan Frequency and Duration Frequency of 1x/Week Treatment Duration of 8 treatment (weeks) Plan of Care Start 06/18/25 Date Plan of Care End 08/13/25 Date Therapeutic Interventions Therapeutic Home Exercise Program,Neuromuscular Re-education,Self- Interventions Care/Home Management,Therapeutic Exercises Modalities Biofeedback Next Visit Focus/Plan Next Note Type Treatment Note Next Visit Plan Potential last tx (DC) next visit. Recheck standing neuromuscular PF contractions compared to today, NExt tx: review ILU massge and thoracic rotation exercises as needed and HEP.
--- NOTE | 2025-08-11 16:54 | PT.OPPOC ---
Physical, Occupational & Speech Therapy At Current Diagnoses Urge incontinence (08/11/25) Pelvic muscle wasting (08/11/25) Unspecified urinary incontinence (08/11/25) Visit Care Team Role Provider Type MARVIN Shoemaker Attending Provider Advanced Internet Salesperson Primary Care Provider Referring Provider Specialty: Medical Address: [address] [place] [address], [facility] Email: [email or web address] Plan Of Care PT OP: Pelvic Health Start: 05/14/25 08:11 Freq: Status: Active Protocol: Document 08/11/25 14:33 [facility] (Rec: 08/11/25 14:48 [facility] [id number]) Out-Patient Physical Therapy Visit Information Visit Information Visit Type Progress Note Visit Start Time 14:30 Visit Stop Time 15:15 Visit Number 13 Number of RHINESTONE SETTER Visits 0 OP-PT Subjective Patient Comments Patient Comments pt notes she is doing better but still has some leakage . SHe feels it is worse on days she has not had a bowel movement Therapeutic Exercises Supine Exercises modified pelvic floor squat stretch Reps/Minutes hold 1 min with cues to relax the pelvic floor Comments in supine pulling knees up to chest and out to the sides hooklying hip abduction with theraband Resistance level 3 TB Equipment Used 2 x 10 reps quick flicks Reps/Minutes 5 Sh 5 sec rest x10 reps Comments avg 11.6, max 22.5 adductor assist pelvic floor long holds Reps/Minutes 12 reps Comments average of 11 max of 28 pelvic floor long holds Reps/Minutes 10 reps holding 10 sec Comments avg 14.2 38.2 uv Manual Therapy Treatment Soft Tissue Mobilization ILU self massage Comments review of ILU self massage over the colon to help promote bowel movements Neuro Re-Education Treatment Other Activities NMES for the pelvic floor Details 10 Reps/Duration 10 sec on and 10 sec off Comments able to feel the sensation at level 15 today and went to level 25 Physical Therapy Assessment Goals 3 Impairment pelvic floor and core weakness with decreased endurance for sustaining a contraction for more than a few seconds Short Term Goal (STG Natty is able to sustain a pelvic floor contraction in ) supine x 10 seconds excellent progress and Natty is up to 8 second holds now STG Duration 4 weeks Intermediate Goal (LTG) Natty is able to engage her pelvic floor for transitional activities such as sit-stand and hold up to 5 seconds in sitting pt is working on this with her HEP 08/04/25: can hold contraction fo 5 sec seated LTG Duration 8 weeks + progressing 08/04/25 2 Impairment urinary incontinence that is happening multiple times per day with activities such as walking to the toilet, strong urge to void, and with changing positions Group Segment Consultant Goal (LTG) Natty reports a overall reduction in urinary incontinence pt has had some success and intermittent days where she isn't leaking 08/04/25: reports getting to the bathroom with less or no leakage, but 2 days ago had leakage as soon as came to standing and did do PF contractions before stood up. LTG Duration 8 weeks + progressing 08/04/25 1 Impairment urinary urgency with pt voiding 11-14 times per day Short Term Goal (STG Natty is educated on the urge deference technique and ) bladder retraining goal met STG Duration 4 weeks Intermediate Goal (LTG) Natty is able to increase time between voids to every 2 hours good progress as she is voiding at 1-2 hour intervals 08/04/25: yesterday could go 3 hrs before going to the bathroom. LTG Duration 8 weeks progressing 08/04/25 Assessment Summary Assessment Natty is doing better with improved pelvic floor strength and she has days where is not lot leaking at all. She then has days where she will experience some leakage for no reason. I have had her track her bowel movements and days where she has urgency are typically days she has not been able to have a bowel movement. I added in a self abdominal massage for her and trunk exercises to help with mobility of the trunk to encourage colon mobility. Natty has one visit left to review her HEP and then she will be DC to a HEP Physical Therapy Plan Frequency and Duration Frequency of 1x/Week Treatment Duration of 4 treatment (weeks) Plan of Care Start 08/11/25 Date Plan of Care End 09/01/25 Date Next Visit Focus/Plan Next Note Type Treatment Note Next Visit Plan Review ILU self massage and all exercises for pelvic floor next visit as this will be Natty's last PT visit Plan of Care Dates Plan of Care Start Date 08/11/25 Plan of Care End Date 09/01/25 Electronically Signed by: Madeleine Jarrett, PT 08/11/25 [id number] If you are in agreement with this Plan of Care, please return a signed and dated copy. I have reviewed this Plan of Care and certify that the skilled therapy services above are required to meet the patient?s needs. Physician Signature Date Printed Name and Credentials Clinical Instructor Signature Printed Name and Credentials
--- NOTE | 2025-08-18 13:24 | PT-OP ANOTE ---
Natty did not show for her appt today, I left her a voicemail as it was her last scheduled PT appointment for pelvic health. She does have a new eval coming up for vestibular therapy and I reminded her of that on 09/07/25. She will be DC from me today
--- NOTE | 2025-08-18 13:27 | PT.OPDS ---
Current Diagnoses Urge incontinence (08/11/25) Pelvic muscle wasting (08/11/25) Unspecified urinary incontinence (08/11/25) Visit Care Team Role Provider Type MARVIN Shoemaker Attending Provider Advanced Data Librarian Primary Care Provider Referring Provider Specialty: Medical Address: [address] [place] [address], [facility] Email: [email or web address] Visit Number Visit Number 13 Discharge Summary PT OP: Pelvic Health Start: 05/14/25 08:11 Freq: Status: Active Protocol: Document 08/18/25 13:01 [facility] (Rec: 08/18/25 13:23 AM[facility] [id number]) Physical Therapy Assessment Goals 3 Impairment pelvic floor and core weakness with decreased endurance for sustaining a contraction for more than a few seconds Short Term Goal (STG Natty is able to sustain a pelvic floor contraction in ) supine x 10 seconds excellent progress and Natty is up to 8 second holds now STG Duration 4 weeks Dial Equipment Engineer Goal (LTG) Natty is able to engage her pelvic floor for transitional activities such as sit-stand and hold up to 5 seconds in sitting pt is working on this with her HEP 08/04/25: can hold contraction fo 5 sec seated LTG Duration 8 weeks + progressing 08/04/25 2 Impairment urinary incontinence that is happening multiple times per day with activities such as walking to the toilet, strong urge to void, and with changing positions Halfway Goal (LTG) Natty reports a overall reduction in urinary incontinence pt has had some success and intermittent days where she isn't leaking 08/04/25: reports getting to the bathroom with less or no leakage, but 2 days ago had leakage as soon as came to standing and did do PF contractions before stood up. LTG Duration 8 weeks + progressing 08/04/25 1 Impairment urinary urgency with pt voiding 11-14 times per day Short Term Goal (STG Natty is educated on the urge deference technique and ) bladder retraining goal met STG Duration 4 weeks Dial Equipment Engineer Goal (LTG) Natty is able to increase time between voids to every 2 hours good progress as she is voiding at 1-2 hour intervals 08/04/25: yesterday could go 3 hrs before going to the bathroom. LTG Duration 8 weeks progressing 08/04/25 Assessment Summary Assessment Natty is doing better with improved pelvic floor strength and will have days where is is not leaking at. She will then have days where she will experience leakage for no reason. I have had her track her bowel movements and her days where she has not had a bowel movement do track with days she experiences more urgency. We added in self abdominal massage for her to encourage daily bowel movements as well as adding in fiber which she is trying to do. She had a final appt today which she did not show for. At this time she will be discharged to a [facility] Physical Therapy Plan Discharge Physical Therapy Discharge Reasons Plateau in Progress
== END 2025-08-19 12:23 | disposition home or self-care (01) ==
LOC: PHYS 14:30
PROVIDERS: PCP Registered Nurse Diabetes Educator; Referring Provider Registered Nurse Diabetes Educator; Visit Provider Registered Nurse Diabetes Educator
DX: N39.41 Urge incontinence (principal); N81.84 Pelvic muscle wasting
CPT/HCPCS: 97110; 97112; 97140; 97161; 97535

== ENCOUNTER → 2025-09-10 12:15 | Outpatient (CLI) | payer OTHER, SELFPAY ==
[2024-11-24 16:30] VITALS: BMI 22.9
--- NOTE | 2025-09-10 12:16 | DI.RAD.S_ITS ---
PROCEDURE: XR DEXA AXIAL SKELETON INDICATIONS: osteopenia COMPARISON: [facility], ANDREW, XR DEXA AXIAL SKELETON, 02/07/2022, 12:12. FINDINGS: Lumbar Spine: Bone mineral density 0.820 g/cm2, T score -2.1, statistical comparison of the prior lumbar spine cannot be made due to differences in inclusion technique. The prior T-score was -2.4. Left Femoral Neck: Bone mineral density 0.641 g/cm2, T score -1.9. Left Hip: Bone mineral density 0.697 g/cm2, T score -2.0, prior T-score of -1.5. Fracture Risk Calculation (when applicable): 10-year fracture risk of a major osteoporotic fracture 12 percent and of a hip fracture 2.5 percent. (T score greater or equal to -1.0 to: NORMAL) (T score from -1.1 to -2.4: OSTEOPENIA) (T score less than or equal to -2.5: OSTEOPOROSIS) IMPRESSION: Osteopenia, comparison cannot be made to the prior exam due to differences in technique, however the prior T-scores are reported. Follow-up guidelines as follows: Osteoporosis: Consider a repeat DEXA and Vertebral Fracture Assessment (VFA) exam in 2 years or sooner if medically necessary, to reassess this patient's status. Osteopenia: Consider a repeat DEXA in 2-3 years to reassess this patient's status, or if there is a new clinical indication. Normal: Consider a repeat DEXA in 5 years or sooner, or if there is a new clinical indication. All treatment decisions require clinical judgment and consideration of individual patient factors, including patient preferences, comorbidities, previous drug use, risk factors not captured in the FRAX model (e.g., frailty, falls, vitamin D deficiency, increased bone turnover, interval significant decline in bone density ) and possible under- or over-estimation of fracture risk by FRAX. In addition, the NOF Guide recommends that FDA-approved medical therapies be considered in postmenopausal women and men age >= 50 years with a: * Hip or vertebral (clinical or morphometric) fracture * T-score of <=-2.5 at the spine or hip * Ten-year fracture probability by FRAX of >= 3% for hip fracture or >=20% for major osteoporotic fracture. Dictated by: Aung Bell M.D. on 09/10/2025 at 17:22 Approved by: Aung Bell M.D. on 09/10/2025 at 17:24
== END ==
PROVIDERS: PCP Registered Nurse Diabetes Educator; Referring Provider Registered Nurse Diabetes Educator; Visit Provider Registered Nurse Diabetes Educator
DX: M85.89 Other specified disorders of bone density and structure, multiple sites (principal)
CPT/HCPCS: 77080